=== PATIENT | female | born 1985 | race Caucasian/White ===

== ENCOUNTER 2019-07-18 09:38 | Outpatient (CLI) | payer BC, SELFPAY ==
[2019-07-18 09:56] LABS: Basophils Absolute Auto 0.1 K/mm3 (0.0-0.1); Basophils Percent Auto 0.8 % (0.2-1.2); Eosinophils Absolute Auto 0.4 K/mm3 (0-0.3); Eosinophils Percent Auto 3.6 % (0-4.4); Hematocrit 49.2 % (37.0-47.0); Hemoglobin 15.8 g/dL (12.0-15.0); Immature Granulocyte Absolute 0.03 K/mm3 (0.00-0.031); Immature Granulocyte Percent A 0.3 % (0-0.5); Lymphocytes Absolute Auto 2.32 K/mm3 (0.9-3.2); Lymphocytes Percent Auto 23.2 % (18.3-44.2); Mean Corpuscular HGB Conc 32.1 g/dl (32-36); Mean Corpuscular Hemoglobin 30.9 pg (26-34); Mean Corpuscular Volume 96.3 fl (80-100); Mean Platelet Volume 9.2 fl (7.4-10.4); Monocytes Absolute Auto 0.5 K/mm3 (0.1-0.6); Monocytes Percent Auto 5.3 % (2.6-8.5); Neutrophils Absolute Auto 6.7 K/mm3 (1.3-6.7); Neutrophils Percent Auto 66.8 % (45.5-73.1); Platelet Count Result 381 k/mm3 (150-375); Red Blood Count 5.11 M/mm3 (4.2-5.4); Red Cell Distribution Width 13.4 % (11.5-14.5)
[2019-07-18 09:58] LABS: Blood Urea Nitrogen 9 mg/dL (8-26); Carbon Dioxide 24 mmol/L (22-30); Chloride 104 mmol/L (98-109); Estimated Glomerular Filt Rate > 60; Glucose 93 mg/dL (70-105); Potassium 4.1 mmol/L (3.5-4.9); Sodium 139 mmol/L (138-146)
== END 2019-07-18 09:39 | disposition home or self-care (01) ==
LOC: ANHLAB 09:43
PROVIDERS: PCP Nurse Practitioner Family; Visit Provider Internal Medicine Hematology & Oncology
DX: D72.829 Elevated white blood cell count, unspecified (principal)
CPT/HCPCS: 36415; 80048; 85025

== ENCOUNTER 2020-11-23 10:25 | Outpatient (CLI) | payer BC, SELFPAY ==
[2020-11-23 11:47] LABS: Basophils Absolute Auto 0.1 K/mm3 (0.0-0.1); Basophils Percent Auto 0.9 % (0.2-1.2); Eosinophils Absolute Auto 0.4 K/mm3 (0-0.3); Eosinophils Percent Auto 3.8 % (0-4.4); Hematocrit 49.3 % (37.0-47.0); Immature Granulocyte Absolute 0.03 K/mm3 (0.00-0.031); Immature Granulocyte Percent A 0.3 % (0-0.5); Lymphocytes Absolute Auto 2.36 K/mm3 (0.9-3.2); Mean Corpuscular HGB Conc 32.5 g/dl (32-36); Mean Corpuscular Hemoglobin 30.8 pg (26-34); Mean Platelet Volume 9.2 fl (7.4-10.4); Monocytes Absolute Auto 0.6 K/mm3 (0.1-0.6); Monocytes Percent Auto 5.5 % (2.6-8.5); Neutrophils Absolute Auto 7.7 K/mm3 (1.3-6.7); Neutrophils Percent Auto 68.5 % (45.5-73.1); Platelet Count Result 357 k/mm3 (150-375); Red Blood Count 5.19 M/mm3 (4.2-5.4); Red Cell Distribution Width 14.1 % (11.5-14.5); White Blood Count 11.3 K/mm3 (4.5-10.0)
[2020-11-23 11:57] LABS: Alanine Aminotransferase 36 U/L (4-35); Aspartate Amino Transferase 34 U/L (14-36); Cholesterol 124 mg/dL (0-200); Creatine Kinase 78 U/L (30-135); HDL Direct 32 mg/dL; Triglycerides 122 mg/dL (<150)
[2020-11-23 12:08] LABS: LDL Cholesterol Direct 65 mg/dL
== END 2020-11-23 10:26 | disposition home or self-care (01) ==
LOC: ANHLAB 10:32
PROVIDERS: PCP Nurse Practitioner Family
DX: I48.19 Other persistent atrial fibrillation (principal); E78.2 Mixed hyperlipidemia; R53.83 Other fatigue; I25.10 Atherosclerotic heart disease of native coronary artery without angina pectoris
CPT/HCPCS: 36415; 80061; 82550; 84450; 84460; 85025

== ENCOUNTER 2020-12-01 13:16 | Emergency (ER) | payer BC, SELFPAY ==
--- NOTE | ~2020-12-01 | CT_ITS ---
EXAMINATION: CT abdomen pelvis wo con DATE: 12/01/2020 14:21 INDICATION: Left flank pain TECHNIQUE: Computed tomography (CT) of the abdomen and pelvis was performed without intravenous contr ast. Automated exposure control and iterative reconstruction technique were employed. The dose-length product was 1006.27 mGy-cm. COMPARISON: None FINDINGS: Lung bases are clear. Heart size is normal. No pericardial or pleural effusion. Liver, gallbladder, p ancreas and left adrenal gland are normal. Dystrophic calcifications at the right adrenal gland likel y related to prior infection or hemorrhage. Lobular contour to the spleen suggesting sequela of prior infarct or trauma. Mild right renal atrophy with regions of cortical scarring. Mild left hydroureter onephrosis without evident obstructing stone or mass. 7.8 x 5.6 x 6.8 cm right ovarian mass with mixe d fluid, soft tissue and fat attenuation along with coarse calcification consistent with ovarian derm oid. Decompressed bladder is normal. There is a bulging contour along the left anterior aspect of the lower uterine segment suggesting a uterine fibroid. Left adnexa is unremarkable. No free intraperito james gas or fluid. No pathologically enlarged abdominal or pelvic lymphadenopathy. Bones are unremark able. IMPRESSION: 1. Mild left hydroureteronephrosis without evident obstructing stone or mass. 2. 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 3. Likely uterine fibroid. 4. Mild right renal atrophy with focal regions of cortical atrophy which could represent sequela of p rior infection or less likely infarction. Reviewed, dictated and finalized at location A. IMPRESSION: 1. Mild left hydroureteronephrosis without evident obstructing stone or mass. 2. 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 3. Likely uterine fibroid. 4. Mild right renal atrophy with focal regions of cortical atrophy which could represent sequela of prior infection or less likely infarction.
[2020-12-01 13:20] VITALS: PULSE 74; RESP 20; TEMP 36.8; O2SAT 100
[2020-12-01 13:35] LABS: Basophils Absolute Auto 0.1 K/mm3 (0.0-0.1); Basophils Percent Auto 0.7 % (0.2-1.2); Eosinophils Absolute Auto 0.4 K/mm3 (0-0.3); Eosinophils Percent Auto 2.3 % (0-4.4); Hematocrit 49.1 % (37.0-47.0); Immature Granulocyte Absolute 0.06 K/mm3 (0.00-0.031); Immature Granulocyte Percent A 0.4 % (0-0.5); Lymphocytes Percent Auto 14.4 % (18.3-44.2); Mean Corpuscular HGB Conc 32.6 g/dl (32-36); Mean Corpuscular Hemoglobin 30.7 pg (26-34); Mean Corpuscular Volume 94.2 fl (80-100); Mean Platelet Volume 9.1 fl (7.4-10.4); Monocytes Absolute Auto 0.9 K/mm3 (0.1-0.6); Monocytes Percent Auto 5.9 % (2.6-8.5); Neutrophils Absolute Auto 11.7 K/mm3 (1.3-6.7); Neutrophils Percent Auto 76.3 % (45.5-73.1); Platelet Count Result 387 k/mm3 (150-375); Red Blood Count 5.21 M/mm3 (4.2-5.4); Red Cell Distribution Width 13.9 % (11.5-14.5); White Blood Count 15.3 K/mm3 (4.5-10.0)
[2020-12-01 13:36] VITALS: BP 130/90
--- NOTE | 2020-12-01 13:41 | ED.ABDPAIN ---
HPI - Abdominal Pain General Chief Complaint: Abdominal Pain Stated Complaint: abdominal pain Time Seen by Provider: 12/01/20 13:21 Source: patient Mode of arrival: ambulatory Limitations: no limitations History of Present Illness HPI narrative: Patient is a 35-year-old female complaining left flank pain, 9 out of 10, sharp, nonradiating accompanied by nausea and vomiting, started today. Patient denies any chest pain, shortness of breath, abdominal pain, nausea, vomiting, diarrhea, fever, chills or urinary symptoms. Related Data Home Medications Medication Instructions Recorded Confirmed aspirin [Aspir-81] 81 mg PO DAILY 12/01/20 12/01/20 clopidogrel 75 mg PO DAILY 12/01/20 12/01/20 lisinopril 5 mg PO DAILY 12/01/20 12/01/20 metoprolol succinate 100 mg PO DAILY 12/01/20 12/01/20 rosuvastatin 10 mg PO DAILY 12/01/20 12/01/20 Allergies Allergy/AdvReac Type Severity Reaction Status Date / Time lamotrigine [From Lamictal] Allergy Hives Verified 12/01/20 13:23 Review of Systems Review of Systems: All systems reviewed & are unremarkable except as noted in HPI and below Constitutional: Constitutional: Denies body ache(s), Denies chills, Denies excessive sweating, Denies fatigue, Denies fever(s), Denies headache(s), Denies lethargy, Denies malaise, Denies weakness and Denies weight loss Eyes: Eyes: Denies blurry vision, Denies change in vision and Denies loss of vision ENT: Denies dizziness, Denies ear discharge, Denies headache(s), Denies lip swelling, Denies epistaxis, Denies nasal congestion, Denies neck pain, Denies throat swelling and Denies tongue swelling Cardiovascular: Cardiovascular: Denies chest pain, Denies chest pain at rest, Denies chest pain with activity, Denies diaphoresis, Denies rapid heart rate, Denies edema, Denies irregular heart rhythm, Denies lightheadedness, Denies palpitations, Denies dyspnea and Denies dyspnea on exertion Respiratory: Respiratory: Denies chest congestion, Denies cough, Denies hemoptysis, Denies dyspnea and Denies dyspnea on exertion Gastrointestinal: Gastrointestinal: Denies abdominal pain, Denies melena, Denies hematochezia, Denies diarrhea and Denies hematemesis Musculoskeletal: Musculoskeletal: Denies abnormal gait, Denies deformity, Denies joint swelling, Denies limited range of motion, Denies neck pain and Denies numbness Neurologic: Denies Abnormal speech present, Denies abnormal gait, Denies confusion, Denies dizziness, Denies headache(s), Denies focal weakness, Denies loss of vision, Denies numbness, Denies Other visual disturbances, Denies Sensory deficit (Neuro) and Denies weakness Psychiatric: Psychiatric: Denies confusion, Denies depression, Denies auditory hallucinations, Denies homicidal ideation and Denies suicidal ideation Endocrine: Endocrine: Denies cold intolerance, Denies excessive sweating, Denies fatigue, Denies heat intolerance and Denies palpitations Hematologic/Lymphatic: Hematologic/Lymphatic: Denies easy bleeding and Denies easy bruising Allergic/Immunologic: Allergic/Immunologic: Denies lip swelling, Denies throat swelling and Denies tongue swelling PMFSH Social History Social History Gender identity (if verbalized by the patient): Female Comments Past medical history: Hypertension, hyperlipidemia, coronary artery disease Family history: Positive for hypertension and coronary disease Social history: Non-smoker no EtOH or drug use Exam Const: General: cooperative, healthy appearing, comfortable, no acute distress, well developed, alert and awake; No confusion Orientation/consciousness: oriented to person, oriented to place, oriented to time, patient oriented x3 and No confusion Limitations: no limitations HENMT: Head: normal to inspection, normocephalic and atraumatic Ears: hearing grossly normal bilaterally, TM normal on the right and TM normal on the left General nose exam: Normal external nose present, Normal nares present and No nasal dischar
[2020-12-01 13:44] LABS: Anion Gap 10 mmol/L (8-16); Blood Urea Nitrogen 13 mg/dL (7-17); Calcium 9.4 mg/dL (8.4-10.2); Carbon Dioxide 22 mmol/L (22-30); Chloride 107 mmol/L (98-107); Estimated CRCL calculation 84 ml/min; Estimated Glomerular Filt Rate 52; Glucose 109 mg/dL (65-110); Potassium 4.7 mmol/L (3.4-5.0); Sodium 139 mmol/L (137-145)
[2020-12-01] MEDS: KETOROLAC 30 MG/ML VIAL (*BKC) IV PUSH (14:03)
[2020-12-01] MEDS: PROMETHAZINE HCL 25 MG/ML AMPUL 12.5 MG IV PUSH (14:04)
[2020-12-01 14:05] LABS: Add Urine Microscopic? YES; Appearance Urine Cloudy (Clear); Bacteria Urine Trace /hpf; Bilirubin Urine Negative (Negative); Blood Urine 2+ (Negative); Color Urine Yellow (Yellow); Glucose Urine UA Negative (Negative); Ketones Urine Negative (Negative); Leukocyte Esterase Ur Trace LEU/UL (Negative); Mucus Urine Moderate /lpf; Nitrate Urine Negative (Negative); Protein Urine 1+ mg/dL (Negative); Specific Grav Ur 1.027 (1.001-1.035); Squamous Epithelial Cell Urine Many /hpf (Few); Urobilinogen Urine Negative mg/dL (<2.0)
[2020-12-01] MEDS: SODIUM CHLORIDE 0.9% IV 1,000 ML 999 ML IV CONT (14:08)
[2020-12-01 14:50] VITALS: BP 125/79; PULSE 65; RESP 14; O2SAT 97
[2020-12-01 16:29] VITALS: BP 115/77; PULSE 67; RESP 14; O2SAT 97
--- NOTE | 2020-12-25 07:43 | PC.NURSE ---
LATE ENTRY This note is being entered to document information to the patient's record. The following information was omitted on [12/01/20], by [Tito Dahl Rn]. NS stop time 1500.
--- NOTE | 2021-01-03 07:44 | PC.NURSE ---
normal saline given per gravity and ended one hour after starting.
== END 2020-12-01 16:44 | disposition home or self-care (01) ==
PROVIDERS: Emergency Provider Emergency Medicine; PCP Family Medicine
DX: N23 Unspecified renal colic (principal); N13.30 Unspecified hydronephrosis; R31.29 Other microscopic hematuria; I10 Essential (primary) hypertension; E78.5 Hyperlipidemia, unspecified; I25.10 Atherosclerotic heart disease of native coronary artery without angina pectoris; D27.0 Benign neoplasm of right ovary; N26.1 Atrophy of kidney (terminal); R93.89 Abnormal findings on diagnostic imaging of other specified body structures
CPT/HCPCS: 36415; 74176; 80048; 81001; 81025; 85025; 87086; 87088; 96361; 96374; 96375; 99284; J1885; J2550; J7030

== ENCOUNTER 2021-03-10 10:58 | Emergency (ER) | payer BC, SELFPAY ==
[2021-03-10 11:06] VITALS: BP 136/82; PULSE 91; RESP 18; TEMP 36.6; O2SAT 100
--- NOTE | 2021-03-10 12:41 | ED.SKABFB ---
HPI - Skin/Abscess/Foreign Bdy General Chief complaint: Skin/Abscess/Foreign Body Stated complaint: abscess armpit Time Seen by Provider: 03/10/21 11:48 Source: patient Mode of arrival: ambulatory Limitations: no limitations History of Present Illness HPI narrative: This is a 36 year old female that presents to the ER for abscess to the left axilla present over the last couple of days. Reports history of frequent abscesses. Denies fever or drainage. Related Data Home Medications Medication Instructions Recorded Confirmed apixaban 5 mg tablet 5 mg PO BID 04/10/19 aspirin 81 mg tablet,delayed 81 mg PO DAILY 04/10/19 release clopidogrel 75 mg tablet 75 mg PO DAILY 04/10/19 metoprolol succinate 100 mg 100 mg PO DAILY 04/10/19 tablet,extended release 24 hr aspirin [Aspir-81] 81 mg PO DAILY 12/01/20 12/01/20 clopidogrel 75 mg PO DAILY 12/01/20 12/01/20 lisinopril 5 mg PO DAILY 12/01/20 12/01/20 metoprolol succinate 100 mg PO DAILY 12/01/20 12/01/20 rosuvastatin 10 mg PO DAILY 12/01/20 12/01/20 Allergies Allergy/AdvReac Type Severity Reaction Status Date / Time lamotrigine [From Lamictal] Allergy Hives Verified 02/06/21 12:43 Review of Systems Review of Systems: CONSTITUTIONAL: Denies fever SKIN: Reports redness and swelling All systems reviewed & are unremarkable except as noted in HPI and below PMFSH Past Medical History Medical History (Updated 03/10/21 @ 13:19 by Amaya Evans PA-C) Breast abscess Myocardial infarction TIA (transient ischemic attack) x4 Surgical History Surgical History (Updated 02/06/21 @ 12:43 by Asia Hare) No history of previous surgery Family History Family History (System 02/06/21 @ 12:43 by Asia Hare) Mother Diabetes mellitus Hypertension Family history of malignant neoplasm of uterus Family history of malignant neoplasm of breast in first degree relative Father Cerebrovascular accident Social History Social History (System 02/06/21 @ 12:43 by Asia Hare) Smoking packs per day: 0.5 Smoking cigarettes per day: 10.0 Smoking status: Current every day smoker Tobacco type: cigarettes Second hand tobacco smoke exposure: Yes Alcohol intake: never Substance use: never Substance use type: does not use Gender identity (if verbalized by the patient): Female Exam Narrative: GENERAL: Well-appearing, well-nourished, and in no acute distress. HEAD: Normocephalic, atraumatic. EYES: EOMI. EXTREMITIES: Normal range of motion. Left axilla with 3cm area of erythema and edema with central fluctuance, tender to palpation SKIN: Warm, dry, no rash. NEURO: No focal deficits. Alert and oriented x3. PSYCH: Normal mood and affect Course Vital Signs Vital signs: Vital Signs Temperature 97.8 F 03/10/21 11:06 Pulse Rate 91 03/10/21 11:06 Respiratory Rate 18 03/10/21 11:06 Blood Pressure 136/82 03/10/21 11:06 Pulse Oximetry 100 03/10/21 11:06 Temperature 97.8 F 03/10/21 11:06 Pulse Rate 91 03/10/21 11:06 Respiratory Rate 18 03/10/21 11:06 Blood Pressure 136/82 03/10/21 11:06 Pulse Oximetry 100 03/10/21 11:06 Procedures Abscess I/D upper extremity: Date of Incision: 03/10/21 Time of Incision: 13:18 Side (if applicable): left Local Anesthetic: lidocaine 1% and with epi Amount of anesthesia used (mL): 4 Technique: incised with #11 blade Packing used?: none I&D Results: Pus and Blood MDM - Skin/Abscess/Foreign Bdy MDM Narrative Medical decision making narrative: Patient presents to the emergency department for a small abscess present to the left axilla over the last couple of days. She is afebrile and nontoxic-appearing. Abscess was successfully drained. Patient will be started on oral antibiotics and was educated on wound care. She is to follow-up with primary care doctor. She was also instructed to follow-up with her registered representative. She was
--- NOTE | 2021-03-10 13:39 | PC.NURSE ---
Per Alise in lab, ok to send a jic label down on swab, due to pt being discharged already.
== END 2021-03-10 13:42 | disposition home or self-care (01) ==
PROVIDERS: Emergency Provider Emergency Medicine; PCP Family Medicine
DX: L02.412 Cutaneous abscess of left axilla (principal); I25.2 Old myocardial infarction; Z86.73 Personal history of transient ischemic attack (TIA), and cerebral infarction without residual deficits; Z79.01 Long term (current) use of anticoagulants; Z79.82 Long term (current) use of aspirin; F17.210 Nicotine dependence, cigarettes, uncomplicated
CPT/HCPCS: 10060; 87070; 87205; 99283

== ENCOUNTER 2021-06-02 14:29 | Emergency (ER) | payer BC, SELFPAY ==
--- NOTE | ~2021-06-02 | XR_ITS ---
EXAMINATION: XR ankle LT min 3V EXAM DATE: 06/02/2021 15:19 INDICATION: Lateral malleolar pain, fall week ago. TECHNIQUE: Left ankle frontal, lateral and oblique projections obtained and reviewed. There is no pr ior study for comparison. FINDINGS: There is nondisplaced lateral malleolar tip fracture with overlying soft tissue swelling. T here is also tiny avulsion fracture suspected at the medial malleolus although this potentially could be a chronic finding. Mortise relationship does appear maintained. There is an ankle joint effusion. IMPRESSION: 1. Acute left malleolar tip avulsion fracture without displacement. 2. Tiny medial malleolar avulsion fracture, age indeterminate. 3. Joint effusion. Soft tissue swelling. Reviewed, dictated and finalized at location B. OPERATOR
[2021-06-02 15:00] VITALS: BP 130/88; PULSE 102; RESP 20; TEMP 36.6
--- NOTE | 2021-06-02 16:20 | ED.LOWEXIN ---
HPI - Extremity Injury (Lower) General Chief Complaint: Extremity Injury, Lower Stated Complaint: left ankle pain Time Seen by Provider: 06/02/21 16:03 History of Present Illness HPI Narrative: 36-year-old female presents the emergency room with complaints of left ankle pain. Patient states 7 days ago fell down multiple stairs and twisted her left ankle. Patient states that she noticed swelling tenderness and bruising to the ankle. History of frequent ankle sprains. Patient has been ambulating with pain since onset of injury. Has been taking Tylenol and ibuprofen for pain Related Data Home Medications Medication Instructions Recorded Confirmed apixaban 5 mg tablet 5 mg PO BID 04/10/19 aspirin 81 mg tablet,delayed 81 mg PO DAILY 04/10/19 release clopidogrel 75 mg tablet 75 mg PO DAILY 04/10/19 metoprolol succinate 100 mg 100 mg PO DAILY 04/10/19 tablet,extended release 24 hr aspirin [Aspir-81] 81 mg PO DAILY 12/01/20 12/01/20 clopidogrel 75 mg PO DAILY 12/01/20 12/01/20 lisinopril 5 mg PO DAILY 12/01/20 12/01/20 metoprolol succinate 100 mg PO DAILY 12/01/20 12/01/20 rosuvastatin 10 mg PO DAILY 12/01/20 12/01/20 Allergies Allergy/AdvReac Type Severity Reaction Status Date / Time lamotrigine [From Lamictal] Allergy Hives Verified 02/06/21 12:43 Review of Systems Review of Systems: CONSTITUTIONAL: Denies fever, chills, or sweats. EYES: Denies visual changes, redness, or discharge. ENT: Denies rhinorrhea, congestion, sore throat, or otalgia. CARDIOVASCULAR: Denies chest pain, palpitations, or edema. RESPIRATORY: Denies cough or dyspnea. GASTROINTESTINAL: Denies abdominal pain, nausea, vomiting, or diarrhea. GENITOURINARY: Denies dysuria or hematuria. SKIN: Denies rash or itching. MUSCULOSKELETAL: Right ankle pain NEUROLOGIC: Denies headache, numbness, dizziness, or weakness. PSYCHIATRIC: Denies anxiety or depression. [facility] Past Medical History Medical History Breast abscess Myocardial infarction TIA (transient ischemic attack) x4 Surgical History Surgical History No history of previous surgery Family History Family History Mother Diabetes mellitus Hypertension Family history of malignant neoplasm of uterus Family history of malignant neoplasm of breast in first degree relative Father Cerebrovascular accident Social History Social History Smoking packs per day: 0.5 Smoking cigarettes per day: 10.0 Smoking status: Current every day smoker Tobacco type: cigarettes Second hand tobacco smoke exposure: Yes Alcohol intake: never Substance use: never Substance use type: does not use Gender identity (if verbalized by the patient): Female Exam Narrative: GENERAL: Well-appearing, well-nourished, and in no acute distress. HEAD: Normocephalic, atraumatic. EYES: PERRLA and EOMI. ENT: Nares clear, no rhinorrhea or epistaxis. Mucous membranes moist. NECK: Supple. No adenopathy or masses. No carotid bruits or JVD CHEST: Clear to auscultation. No respiratory distress. No wheezes rales or rhonchi HEART: Regular rate and rhythm. No murmur heard. Normal peripheral pulses. ABDOMEN: Soft, nontender, nondistended, normal active bowel sounds. EXTREMITIES: Normal range of motion. No edema. Right ankle: Tenderness and swelling to medial lateral malleolus, no joint laxity, no obvious bony abnormality SKIN: Warm, dry, no rash. NEURO: No focal deficits. Alert and oriented x3. PSYCH: Normal mood and affect. Course Vital Signs Vital signs: Vital Signs Temperature 36.6 C 06/02/21 15:00 Pulse Rate 102 H 06/02/21 15:00 Respiratory Rate 20 06/02/21 15:00 Blood Pressure 130/88 06/02/21 15:00 Temperature 36.6 C 06/02/21 15:00 Pulse Rate 102 H
[2021-06-02 17:29] VITALS: BP 132/82; PULSE 99; RESP 16; TEMP 36.6; O2SAT 96
== END 2021-06-02 17:31 | disposition home or self-care (01) ==
LOC: ANHED 17:00
PROVIDERS: Emergency Provider Nurse Practitioner Family; PCP Family Medicine
DX: S82.65XA Nondisplaced fracture of lateral malleolus of left fibula, initial encounter for closed fracture (principal); I25.2 Old myocardial infarction; Z86.73 Personal history of transient ischemic attack (TIA), and cerebral infarction without residual deficits; Z79.01 Long term (current) use of anticoagulants; Z79.82 Long term (current) use of aspirin; F17.210 Nicotine dependence, cigarettes, uncomplicated; W10.9XXA Fall (on) (from) unspecified stairs and steps, initial encounter
CPT/HCPCS: 29515; 73610; 99284

== ENCOUNTER 2022-07-24 16:26 | Outpatient (CLI) | payer BC, SELFPAY ==
[2022-07-24 18:01] LABS: Hemoglobin A1C 5.6 % (<5.7)
[2022-07-28 10:46] LABS: Insulin Level Total 11.3 uIU/mL (<=19.6)
[2022-07-29 04:56] LABS: FSH 8.6 mIU/mL (***); LH 14.8 mIU/mL (***); Progesterone 0.4 ng/mL (***)
[2022-07-29 11:50] LABS: Testosterone Total 132 ng/dL (2-45)
== END 2022-07-24 16:27 | disposition home or self-care (01) ==
LOC: ANHLAB 16:27
PROVIDERS: PCP Family Medicine; Visit Provider Obstetrics & Gynecology
DX: N92.6 Irregular menstruation, unspecified (principal)
CPT/HCPCS: 36415; 83001; 83002; 83036; 83525; 84144; 84403

== ENCOUNTER 2022-08-06 16:12 | Outpatient (CLI) | payer BC, SELFPAY | END 2022-08-06 16:13 | disposition home or self-care (01) | LOC: ANHLAB 16:13 | PROVIDERS: PCP Family Medicine; Visit Provider Obstetrics & Gynecology | DX: R79.89 Other specified abnormal findings of blood chemistry (principal) | CPT/HCPCS: 36415; 83498 ==

== ENCOUNTER 2022-09-04 12:19 | Outpatient (CLI) | payer BC, SELFPAY ==
--- NOTE | ~2022-09-04 | US_ITS ---
EXAMINATION: US pelvic complete w TV DATE: 09/04/2022 13:17 INDICATION: Irregular menstruation, unspecified. TECHNIQUE: Multiple transabdominal and transvaginal sonographic images of the pelvis were obtained. COMPARISON: CT abdomen and pelvis 12/01/2020 FINDINGS: TRANSABDOMINAL ULTRASOUND: The uterus measures 12.2 x 4.6 x 5.6 cm. There is no free fluid in the pelvis. TRANSVAGINAL ULTRASOUND: The endometrial complex is obscured. There is a 3.8 cm intramural fibroid in the lower uterine segmen t anteriorly. The ovaries are not visualized. IMPRESSION: 1. 3.8 cm uterine fibroid. 2. Endometrial complex not well visualized. 3. Ovaries not visualized. Reviewed, dictated and finalized at location A.
== END 2022-09-04 12:20 | disposition home or self-care (01) ==
LOC: ANHIMG 12:20
PROVIDERS: PCP Family Medicine; Visit Provider Obstetrics & Gynecology
DX: D25.9 Leiomyoma of uterus, unspecified (principal); N92.6 Irregular menstruation, unspecified; N92.0 Excessive and frequent menstruation with regular cycle
CPT/HCPCS: 76830; 76856

== ENCOUNTER 2023-01-15 07:40 | Outpatient (CLI) | payer BC, SELFPAY ==
[2023-01-15 08:59] LABS: Basophils Absolute Auto 0.1 K/mm3 (0.0-0.1); Basophils Percent Auto 0.8 % (0.2-1.2); Eosinophils Absolute Auto 0.5 K/mm3 (0-0.3); Eosinophils Percent Auto 4.3 % (0-4.4); Hematocrit 48.2 % (37.0-47.0); Hemoglobin 15.6 g/dL (12.0-15.0); Immature Granulocyte Absolute 0.04 K/mm3 (0.00-0.031); Immature Granulocyte Percent A 0.3 % (0-0.5); Lymphocytes Absolute Auto 2.76 K/mm3 (0.9-3.2); Lymphocytes Percent Auto 23.2 % (18.3-44.2); Mean Corpuscular HGB Conc 32.4 g/dl (32-36); Mean Corpuscular Hemoglobin 31.1 pg (26-34); Mean Platelet Volume 9.3 fl (7.4-10.4); Monocytes Absolute Auto 0.7 K/mm3 (0.1-0.6); Monocytes Percent Auto 5.7 % (2.6-8.5); Neutrophils Absolute Auto 7.8 K/mm3 (1.3-6.7); Neutrophils Percent Auto 65.7 % (45.5-73.1); Platelet Count Result 376 k/mm3 (150-375); Red Blood Count 5.02 M/mm3 (4.2-5.4); Red Cell Distribution Width 13.8 % (11.5-14.5); White Blood Count 11.9 K/mm3 (4.5-10.0)
[2023-01-15 09:11] LABS: Alanine Aminotransferase 30 U/L (6-35); Albumin Level 4.3 g/dL (3.5-5.1); Alkaline Phosphatase 103 U/L (38-126); Anion Gap 6 mmol/L (8-16); Aspartate Amino Transferase 28 U/L (14-36); Bilirubin,Total 0.5 mg/dL (0.2-1.3); Blood Urea Nitrogen 13 mg/dL (7-17); Calcium 9.1 mg/dL (8.4-10.2); Carbon Dioxide 27 mmol/L (22-30); Chloride 104 mmol/L (98-107); Cholesterol 148 mg/dL (0-200); Estimated Glomerular Filt Rate > 60; Glucose 91 mg/dL (65-110); HDL Direct 32 mg/dL; Potassium 4.2 mmol/L (3.4-5.0); Sodium 137 mmol/L (137-145); Triglycerides 145 mg/dL (<150)
[2023-01-15 09:23] LABS: LDL Cholesterol Direct 88 mg/dL
== END 2023-01-15 07:41 | disposition home or self-care (01) ==
PROVIDERS: PCP Family Medicine; Visit Provider Physician Assistant Medical
DX: Z72.0 Tobacco use (principal); Z13.29 Encounter for screening for other suspected endocrine disorder; E78.5 Hyperlipidemia, unspecified; D64.9 Anemia, unspecified; R63.5 Abnormal weight gain
CPT/HCPCS: 36415; 80053; 80061; 84443; 85025

== ENCOUNTER 2023-02-17 15:53 | Outpatient (CLI) | payer BC, SELFPAY ==
[2023-02-17 16:19] LABS: Basophils Absolute Auto 0.1 K/mm3 (0.0-0.1); Basophils Percent Auto 0.9 % (0.2-1.2); Eosinophils Absolute Auto 0.6 K/mm3 (0-0.3); Eosinophils Percent Auto 4.5 % (0-4.4); Hemoglobin 16.1 g/dL (12.0-15.0); Immature Granulocyte Absolute 0.06 K/mm3 (0.00-0.031); Immature Granulocyte Percent A 0.5 % (0-0.5); Lymphocytes Absolute Auto 2.71 K/mm3 (0.9-3.2); Lymphocytes Percent Auto 22.2 % (18.3-44.2); Mean Corpuscular HGB Conc 33.5 g/dl (32-36); Mean Corpuscular Hemoglobin 31.4 pg (26-34); Mean Corpuscular Volume 93.8 fl (80-100); Mean Platelet Volume 8.9 fl (7.4-10.4); Monocytes Absolute Auto 0.8 K/mm3 (0.1-0.6); Monocytes Percent Auto 6.2 % (2.6-8.5); Neutrophils Percent Auto 65.7 % (45.5-73.1); Platelet Count Result 408 k/mm3 (150-375); Red Blood Count 5.12 M/mm3 (4.2-5.4); Red Cell Distribution Width 13.7 % (11.5-14.5); White Blood Count 12.2 K/mm3 (4.5-10.0)
[2023-02-17 16:52] LABS: Alanine Aminotransferase 35 U/L (6-35); Albumin Level 4.5 g/dL (3.5-5.1); Alkaline Phosphatase 114 U/L (38-126); Anion Gap 10 mmol/L (8-16); Aspartate Amino Transferase 42 U/L (14-36); Bilirubin,Total 0.4 mg/dL (0.2-1.3); Blood Urea Nitrogen 12 mg/dL (7-17); Calcium 9.3 mg/dL (8.4-10.2); Carbon Dioxide 24 mmol/L (22-30); Chloride 106 mmol/L (98-107); Estimated Glomerular Filt Rate > 60; Glucose 92 mg/dL (65-110); Potassium 4.5 mmol/L (3.4-5.0); Sodium 140 mmol/L (137-145)
[2023-02-17 17:11] LABS: Iron 121 ug/dL (37-170)
[2023-02-17 17:11] LABS: Erythrocyte Sedimentation Rate 5 mm/hr (0-20)
[2023-02-17 17:20] LABS: Percent Iron Saturation 33 % (20-50)
[2023-02-20 14:05] LABS: Erythropoietin (EPO) 12.9 mIU/mL (2.6-18.5)
== END 2023-02-17 15:54 | disposition home or self-care (01) ==
LOC: ANHLAB 15:55
PROVIDERS: Nurse Practitioner Family; PCP Family Medicine; Visit Provider Internal Medicine Hematology & Oncology
DX: D72.829 Elevated white blood cell count, unspecified (principal); E61.1 Iron deficiency
CPT/HCPCS: 36415; 80053; 82668; 82728; 83540; 83550; 85025; 85652; 86140; 88184

== ENCOUNTER 2023-02-17 16:34 | Outpatient (CLI) | payer BC, SELFPAY ==
--- NOTE | ~2023-02-17 | US_ITS ---
Left neck ultrasound CLINICAL HISTORY: Mass TECHNIQUE: Targeted sonographic imaging performed at the area of palpable concern in the left submand ibular region. FINDINGS: At the area of clinical concern, there is a 2.9 x 0.8 x 3.0 cm circumscribed wider than kathy l ovoid mass, predominantly mildly hyperechoic to surrounding tissues. No posterior shadowing. There is minimal if any internal vascularity. IMPRESSION: 3.0 x 0.8 x 2.9 cm circumscribed mass at the left submandibular region, at the area of clinical alondra rn. This is possibly a lipoma, though somewhat indeterminate. Consider MR to better assess the tissue characteristics of the lesion. Reviewed, dictated and finalized at location . PE MARKER IMPRESSION: 3.0 x 0.8 x 2.9 cm circumscribed mass at the left submandibular region, at the area of clinical concern. This is possibly a lipoma, though somewhat indetermin ate. Consider MR to better assess the tissue characteristics of the lesion.
== END 2023-02-17 16:35 | disposition home or self-care (01) ==
LOC: ANHIMG 16:37
PROVIDERS: PCP Family Medicine; Visit Provider Nurse Practitioner Family
DX: D72.829 Elevated white blood cell count, unspecified (principal); R93.89 Abnormal findings on diagnostic imaging of other specified body structures
CPT/HCPCS: 36415; 76536; 80053; 82668; 82728; 83540; 83550; 85025; 85652; 86140; 88184

== ENCOUNTER 2023-04-19 12:20 | Outpatient (CLI) | payer BC, SELFPAY ==
--- NOTE | ~2023-04-19 | MR_ITS ---
EXAMINATION: MR orbits face neck wo/w con DATE: 04/19/2023 14:05 INDICATION: Leukocytosis and lump in the neck including submandibular mass on prior neck ultrasound. TECHNIQUE: Magnetic resonance imaging (MRI) of the face and neck was performed without and with 20 mL Multihance intravenous contrast. Sequences included axial, sagittal and coronal T1-weighted FSE, sa gittal and coronal T2-weighted FS FSE, axial fluid sensitive FSE STIR, axial T1-weighted FS FSE and p ostcontrast axial, sagittal and coronal T1-weighted FS FSE. COMPARISON: Ultrasound dated 02/17/2023 FINDINGS: Moderate-sized region of chronic encephalomalacia in the right temporoparietal region consistent with old infarct. A separate small region of encephalomalacia consistent with additional old infarct at t he right occipital lobe. Orbits are normal. Mild mucosal thickening the bilateral ethmoid and maxilla ry sinuses. There is a subtle 2.7 x 2.2 x 1.2 cm ovoid nodule comprised of T1 and saturating fat supe rficial to the left submandibular gland which is distinguishable from the surrounding subcutaneous fa t only by subtle increased T2 signal intensity. Small region of more intense ill-defined increased T2 signal and enhancement at the cephalad aspect of the mass. Bilateral parotid and submandibular gland s are normal. A couple mildly prominent but still normal-sized level 2 jugular chain lymph nodes trice uring 10 mm in maximal short axis diameter on the left and 9 mm on the right. No other pathologically enlarged cervical or supraclavicular lymphadenopathy. Mild cervical spondylosis with mild reversal o f the normal lordosis. IMPRESSION: 1. Lesion of concern corresponds to a 2.7 x 2.2 x 1.2 cm T1 hyperintense and saturating macroscopic f at-containing subcutaneous mass overlying the left submandibular gland. There is a small region of in creased T2 signal and mild enhancement at the cephalad aspect of the mass. Differential would include atypical lipoma, one of several benign lipoma variance and well-differentiated liposarcoma. 2. 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 Reviewed, dictated and finalized at location A. CUTTER IMPRESSION: 1. Lesion of concern corresponds to a 2.7 x 2.2 x 1.2 cm T1 hyperintense and sa turating macroscopic fat-containing subcutaneous mass overlying the left subman dibular gland. There is a small region of increased T2 signal and mild enhancem ent at the cephalad aspect of the mass. Differential would include atypical lip lynn, one of several benign lipoma variance and well-differentiated liposarcoma. 2. Chronic infarcts in the right occipital lobe and larger in the right parieto -occipital region.
== END 2023-04-19 12:21 | disposition home or self-care (01) ==
LOC: ANHIMG 12:23
PROVIDERS: PCP Family Medicine; Visit Provider Internal Medicine Hematology & Oncology
DX: K11.8 Other diseases of salivary glands (principal); I63.9 Cerebral infarction, unspecified; D72.829 Elevated white blood cell count, unspecified
CPT/HCPCS: 70543; A9577

== ENCOUNTER 2023-05-04 09:15 | Outpatient (CLI) | payer BC, SELFPAY ==
--- NOTE | ~2023-05-04 | US_ITS ---
EXAMINATION: US biopsy st neck thorax DATE: 05/04/2023 10:11 INDICATION: Left neck mass. TECHNIQUE: The procedure including the risks, benefits, and alternatives was discussed with the patie nt. Risks discussed included bleeding and infection. The patient understood the risks and agreed to p roceed. The skin overlying the left neck was prepped and draped in usual sterile fashion. Anesthetic was administered with 1% lidocaine subcutaneously. An 18 gauge core biopsy needle was then used to obtain 3 core biopsy specimens under continuous sonographic guidance. The entry site was cleaned and dressed. There were no immediate complications. FINDINGS: Ultrasound images demonstrate the needle in a 2.6 x 0.7 x 2.8 cm subcutaneous mass in left submandibular region. The mass demonstrates similar echogenicity and echotexture to normal subcutaneo us fat. IMPRESSION: 1. Ultrasound-guided core needle biopsy of a 2.8 cm heterogeneous mass in left submandibular region. Reviewed, dictated and finalized at location A. NUE INVESTIGATOR
== END 2023-05-04 09:16 | disposition home or self-care (01) ==
LOC: ANHIMG 09:19
PROVIDERS: PCP Family Medicine; Visit Provider Internal Medicine Hematology & Oncology
DX: D17.0 Benign lipomatous neoplasm of skin and subcutaneous tissue of head, face and neck (principal); R22.1 Localized swelling, mass and lump, neck
CPT/HCPCS: 20206; 76942; 88305

== ENCOUNTER 2023-05-10 12:56 | Outpatient (CLI) | payer BC, SELFPAY ==
[2023-05-10 13:09] LABS: Basophils Absolute Auto 0.1 K/mm3 (0.0-0.1); Eosinophils Absolute Auto 0.5 K/mm3 (0-0.3); Eosinophils Percent Auto 4.8 % (0-4.4); Hematocrit 47.7 % (37.0-47.0); Hemoglobin 15.8 g/dL (12.0-15.0); Immature Granulocyte Absolute 0.04 K/mm3 (0.00-0.031); Immature Granulocyte Percent A 0.4 % (0-0.5); Lymphocytes Percent Auto 24.4 % (18.3-44.2); Mean Corpuscular HGB Conc 33.1 g/dl (32-36); Mean Corpuscular Hemoglobin 31.7 pg (26-34); Mean Corpuscular Volume 95.6 fl (80-100); Mean Platelet Volume 8.7 fl (7.4-10.4); Monocytes Absolute Auto 0.6 K/mm3 (0.1-0.6); Monocytes Percent Auto 6.2 % (2.6-8.5); Neutrophils Absolute Auto 6.5 K/mm3 (1.3-6.7); Neutrophils Percent Auto 63.2 % (45.5-73.1); Platelet Count Result 381 k/mm3 (150-375); Red Blood Count 4.99 M/mm3 (4.2-5.4); Red Cell Distribution Width 13.2 % (11.5-14.5); White Blood Count 10.2 K/mm3 (4.5-10.0)
== END 2023-05-10 12:57 | disposition home or self-care (01) ==
LOC: ANHLAB 12:58
PROVIDERS: Nurse Practitioner Family; PCP Family Medicine; Visit Provider Internal Medicine Hematology & Oncology
DX: D72.829 Elevated white blood cell count, unspecified (principal)
CPT/HCPCS: 36415; 85025

== ENCOUNTER 2024-03-27 07:33 | Outpatient (CLI) | payer BC, SELFPAY ==
[2024-03-27 08:29] LABS: Basophils Absolute Auto 0.1 K/mm3 (0.0-0.1); Basophils Percent Auto 0.7 % (0.2-1.2); Eosinophils Absolute Auto 0.5 K/mm3 (0-0.3); Eosinophils Percent Auto 3.4 % (0-4.4); Hematocrit 45.7 % (37.0-47.0); Hemoglobin 14.2 g/dL (12.0-15.0); Immature Granulocyte Absolute 0.05 K/mm3 (0.00-0.031); Immature Granulocyte Percent A 0.4 % (0-0.5); Lymphocytes Absolute Auto 2.81 K/mm3 (0.9-3.2); Mean Corpuscular HGB Conc 31.1 g/dl (32-36); Mean Corpuscular Volume 96.6 fl (80-100); Mean Platelet Volume 8.9 fl (7.4-10.4); Monocytes Absolute Auto 0.6 K/mm3 (0.1-0.6); Monocytes Percent Auto 4.6 % (2.6-8.5); Neutrophils Absolute Auto 9.4 K/mm3 (1.3-6.7); Neutrophils Percent Auto 69.9 % (45.5-73.1); Platelet Count Result 425 k/mm3 (150-375); Red Blood Count 4.73 M/mm3 (4.2-5.4); White Blood Count 13.4 K/mm3 (4.5-10.0)
[2024-03-27 08:44] LABS: Cholesterol 144 mg/dL (0-200); HDL Direct 33 mg/dL; Triglycerides 145 mg/dL (<150)
[2024-03-27 08:45] LABS: Alanine Aminotransferase 24 U/L (6-35); Albumin Level 4.2 g/dL (3.5-5.1); Alkaline Phosphatase 127 U/L (38-126); Anion Gap 5 mmol/L (4-12); Aspartate Amino Transferase 23 U/L (14-36); Bilirubin,Total 0.3 mg/dL (0.2-1.3); Blood Urea Nitrogen 12 mg/dL (7-17); Calcium 8.7 mg/dL (8.4-10.2); Carbon Dioxide 25 mmol/L (22-30); Chloride 109 mmol/L (98-107); Cholesterol 144 mg/dL (0-200); Estimated Glomerular Filt Rate > 60; Glucose 101 mg/dL (65-110); HDL Direct 32 mg/dL; Potassium 4.2 mmol/L (3.4-5.0); Sodium 139 mmol/L (137-145); Triglycerides 144 mg/dL (<150)
[2024-03-27 08:55] LABS: LDL Cholesterol Direct 73 mg/dL
[2024-03-27 08:56] LABS: LDL Cholesterol Direct 72 mg/dL
[2024-03-27 10:02] LABS: Hemoglobin A1C 5.5 % (<5.7)
--- OUTSIDE RECORDS SUMMARY | 2024-04-03 10:58 | XMS_ITS | Encounter Summary ---
Author Organization [facility] [employer] [facility] Address [address] [place] [address] Care Team Providers Care Retail Loss Prevention Investigator Name Role Phone Keven Mckenzie MD Primary Care Provider [phone] Encounter Details Date Type Department Care Team (Latest Contact Info) Description 04/22/2023 1:00 PM DIETETICS PROFESSOR Telephone Check Up [facility] Oncology and Hematology - Juan Manuel [address] [facility] [address] [place] [address] Madyson Perez FNP [address] [facility] [address] [place] [address] Leukocytosis, unspecified type (Primary Dx); Neck mass; Erythrocytosis; Thrombocytosis, unspecified; Lupus anticoagulant with hypercoagulable state Social History Tobacco Use Types Packs/Day Years Used Date Smoking Tobacco: Every Day Cigarettes Smokeless Tobacco: Never Alcohol Use Standard Drinks/Week Comments Yes 0 (1 standard drink = 0.6 oz pur e alcohol) socially Sex and Gender Information Value Date Recorded Sex Assigned at Not on file Gender Identity Not on file Sexual Orientation Not on file documented as of this encounter Progress Notes * Madyson Perez FNP - 04/22/2023 1:09 PM CST Hematology / Oncology Progress Note Patient Identification: Name: Alise Penny Age: 38 y.o. Sex: female : 1985 Diagnosis: Leukocytosis with Lymphadenopathy Hypercoagulable state with recurrent thromboembolic events Erythrocytosis Thrombocytosis Current Treatment: Aspirin, eliquis, and plavix Treatment History: Subjective: This is a telephone visit. Her first appt with us was back in February 2023. She has cancelled and rescheduled her appts with me since then. She was seen prior to that by Dr. Patel years prior but was lost to follow up as well. Upon my exam in Feb, I found an enlarged LN or mass on patients left submandibular area and she was sent for an ultrasound. The ultrasound suggested a MRI. MRI was completed and is concerned for a lipoma vs liposarcoma. She still feels the area on her neck, but does notfeel like it is getting bigger. She denies any URI symptoms. She denies a sore throat. She is stilltaking her blood thinners without issue. No other complaints. Tobacco Counseling: She was counseled to discontinue tobacco/nicotine use. Review of Systems Constitutional: Negative for chills, fatigue, fever and unexpected weight change. HENT: Negative for mouth sores. Respiratory: Negative for cough and shortness of breath. Cardiovascular: Negative for chest pain, palpitations and leg swelling. Gastrointestinal: Negative for abdominal pain, blood in stool, constipation, diarrhea, nausea and vomiting. Genitourinary: Negative for hematuria. Musculoskeletal: Negative for arthralgias. Skin: Negative for rash and wound. Neurological: Negative for dizziness, weakness, numbness and headaches. Hematological: Positive for adenopathy. Does not bruise/bleed easily. Objective: Vital signs in last 24 hours: As per nursing note Physical Exam This is a telephone visit Labs: 01/06/19 WBC 11.8 hemoglobin 15.3 hematocrit 46.9 platelet 385,000 07/18/2019 WBC 10 hemoglobin 15.8 hematocrit 49.2 platelet 381,000 creatinine 1.0 01/15/23 WBC 11.9, hemoglobin 15.6, hematocrit 48.2, plts 376,000 02/17/23: WBC 12.2, Hgb 16.1, Hct 48, Plt 408,000, ESR 5, EPO 12.9, Iron 121, % sat 33, Ferritin 22, Flow cytometry negative Imagin02/17/23: Left neck ultrasound- 3.0x0.8x2.9cm mass at the left submandibular region, possibly a lipoma, but indeterminate 04/19/23: MRI face/neck- lesion of concern 2.7x2.2x2.1 shows a hyper tense and saturating fat containing subcutaneous mass overlying the left submandibular gland. Differentiation includes atypical lipoma, or a well differentiated liposarcoma. 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 Assessment: Plan: Patient Active Problem List Diagnosis Date Noted Thrombocytosis 07/11/2018 Leukemoid reaction 12/27/2017 Lupus anticoagulant with hypercoagulable state 12/27/2017 Hypercoagulable state with recurrent thromboembolic events: Continue aspirin, plavix, and eliquis Should be on anticoagulant therapy lifelong History of non-ST segment elevated MD: Patient is on aspirin, Plavix, Eliquis Leukocytosis with lymphadenopathy: Persistent leukocytosis WBC 11.9; ESR normal. Flow cytometry shows no abnormalities. Left neck ultrasound concerning for a lipoma but indeterminate. MRI orders and showing typical lipoma, or a well differentiated liposarcoma. I will order a biopsy today. Erythrocytosis: Elevated HCT 48, EPO 12.9; likely secondary to smoking and obesity; encouraged smoking cessation, weight loss, diet, and exercise Recommend continuing aspirin, plavix, and eliquis Does not need phlebotomy unless Hct >50 Thrombocytosis: Likely reactive due to smoking and obesity, encouraged smoking cessation and weight loss Iron studies normal. Continue aspirin, eliquis, and plavix HTN Patient is on lisinopril, metoprolol HLD Patient is on rosuvastatin DENAE Corrales-Ramonita, 04/22/2023, 1:15 PM Hematology Oncology Nurse Practitioner [facility] Collaborating Physician: Dr. Gómez Patel. This encounter was completed via audio-only two way synchronous communication. Patient's identity confirmed yes Patient gave verbal consent to have these services billed to their insurance and expressed understanding that co-insurance and deductible may apply: yes Time spent by the provider delivering the care documented in this encounter 20 minutes. ETICS PROFESSOR documented in this encounter Plan of Treatment Scheduled Orders Name Type Priority Associated Diagnoses Orde r Schedule BIOPSY Procedures Routine Leukocytosis, unspecified type Neck mass Expected: 04/22/2023, Expires: 04/22/2024 documented as of this encounter Visit Diagnoses Diagnosis Leukocytosis, unspecified type- Primary Neck mass Swelling, mass, or lump in head and neck Erythrocytosis Reserved for inherently not codable concepts WITHOUT codable children Thrombocytosis, unspecified Lupus anticoagulant with hypercoagulable state Primary hypercoagulable state documented in this encounter Care Teams Retail Loss Prevention Investigator Relationship Specialty Start Date End Date Keven Mckenzie MD [address] [place] [address] PCP - General Family Practice 12/27/17 documented as of this encounter
--- OUTSIDE RECORDS SUMMARY | 2024-04-03 10:58 | XMS_ITS | Encounter Summary ---
Author Organization [facility] [employer] [facility] Address [address] [place] [address] Care Team Providers Care Quality Compliance Coordinator Name Role Phone Keven Mckenzie MD Primary Care Provider [phone] Reason for Visit * Reason Comments Follow Up Encounter Details Date Type Department Care Team (Latest Contact Info) Description 05/10/2023 1:00 PM SWEDISH MASSEUSE Office Visit [facility] Oncology and Hematology - Juan Manuel [address] [facility] [address] [place] [address] Madyson Perez FNP [address] [facility] [address] [place] [address] Leukocytosis, unspecified type (Primary Dx); Thrombocytosis; Neck mass; Erythrocytosis; Lupus anticoagulant with hypercoagulable state Social History Tobacco Use Types Packs/Day Years Used Date Smoking Tobacco: Every Day Cigarettes Smokeless Tobacco: Never Tobacco Cessation:Ready to Q uit: Not Asked; Counseling Given: Not Answered Alcohol Use Standard Drinks/Week Comments Yes 0 (1 standard drink = 0.6 oz pur e alcohol) socially Sex and Gender Information Value Date Recorded Sex Assigned at Not on file Gender Identity Not on file Sexual Orientation Not on file documented as of this encounter Last Filed Vital Signs Vital Sign Reading Time Taken Comments Blood Pressure 111/73 05/10/2023 1:13 PM SWEDISH MASSEUSE Pulse 109 05/10/2023 1:13 PM SWEDISH MASSEUSE Temperature - - Respiratory Rate 16 05/10/2023 1:13 PM SWEDISH MASSEUSE Oxygen Saturation 95% 05/10/2023 1:13 PM SWEDISH MASSEUSE Inhaled Oxygen Concentration - - Weight 136.4 kg (300 lb 9.6 oz) 05/10/2023 1:13 PM SWEDISH MASSEUSE Height - - Body Mass Index 44.39 02/17/2023 2:50 PM SWEDISH MASSEUSE documented in this encounter Progress Notes * Madyson Perez, COOK NIGHT - 05/10/2023 1:15 PM CST Hematology / Oncology Progress Note Patient Identification: Name: Alise Penny Age: 38 y.o. Sex: female : 1985 Diagnosis: Leukocytosis with Lymphadenopathy Hypercoagulable state with recurrent thromboembolic events Erythrocytosis Thrombocytosis Current Treatment: Aspirin, eliquis, and plavix Treatment History: Biopsy left submandibular LN- Benign Lipoma Subjective: Patient returns to the clinic for a follow up visit. She states she has quit smoking cigarettes butnow smokes a vape without nicotine. She is worried about the lipoma becoming cancerous and is wondering about surgical removal. She denies any thromboembolic events. She reports some depression when finding out she could have cancer. Tobacco Counseling: She was counseled to discontinue tobacco/nicotine use. Review of Systems All systems reviewed & are unremarkable except as noted in HPI and above Objective: Vital signs in last 24 hours: As per nursing note Physical Exam Vitals reviewed. Constitutional: General: She is awake. Appearance: Normal appearance. She is obese. HENT: Head: Normocephalic and atraumatic. Mouth/Throat: Mouth: Mucous membranes are moist. Pharynx: Oropharynx is clear. Eyes: Pupils: Pupils are equal, round, and reactive to light. Cardiovascular: Rate and Rhythm: Normal rate and regular rhythm. Pulses: Normal pulses. Heart sounds: Normal heart sounds. Pulmonary: Effort: Pulmonary effort is normal. Breath sounds: Normal breath sounds. Abdominal: General: Abdomen is flat. Bowel sounds are normal. Palpations: Abdomen is soft. There is no hepatomegaly or splenomegaly. Musculoskeletal: General: Normal range of motion. Cervical back: Normal range of motion. Lymphadenopathy: Head: Left side of head: Submental adenopathy present. Skin: General: Skin is warm and dry. Neurological: General: No focal deficit present. Mental Status: She is alert and oriented to person, place, and time. Pathology: 05/04/23 Left submandibular biopsy- benign lipoma Imagin02/17/23: Left neck ultrasound- 3.0x0.8x2.9cm mass at the left submandibular region, possibly a lipoma, but indeterminate 04/19/23: MRI face/neck- lesion of concern 2.7x2.2x2.1 shows a hyper tense and saturating fat containing subcutaneous mass overlying the left submandibular gland. Differentiation includes atypical lipoma, or a well differentiated liposarcoma. 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 Labs: 01/06/19 WBC 11.8 hemoglobin 15.3 hematocrit 46.9 platelet 385,000 07/18/2019 WBC 10 hemoglobin 15.8 hematocrit 49.2 platelet 381,000 creatinine 1.0 01/15/23 WBC 11.9, hemoglobin 15.6, hematocrit 48.2, plts 376,000 02/17/23: WBC 12.2, Hgb 16.1, Hct 48, Plt 408,000, ESR 5, EPO 12.9, Iron 121, % sat 33, Ferritin 22, Flow cytometry negative 05/10/23: WBC 10.2, Hgb 15.8, Hct 47.7, Plt 381,000 Assessment: Plan: Patient Active Problem List Diagnosis Date Noted Thrombocytosis 07/11/2018 Leukemoid reaction 12/27/2017 Lupus anticoagulant with hypercoagulable state 12/27/2017 Hypercoagulable state with recurrent thromboembolic events: Continue aspirin, plavix, and eliquis Should be on anticoagulant therapy lifelong History of non-ST segment elevated MO: Patient is on aspirin, Plavix, Eliquis Leukocytosis with lymphadenopathy: Persistent leukocytosis WBC 10.2; ESR normal. Flow cytometry shows no abnormalities. Left neck ultrasound concerning for a lipoma but indeterminate. MRI orders and showing typical lipoma, or a well differentiated liposarcoma. Biopsy shows benign lipoma of left neck. Patient would like to get it removed in the future. Erythrocytosis: Elevated Hgb 15.8, Hct 47.7, EPO was normal; likely secondary to smoking and obesity; encouraged smoking cessation, weight loss, diet, and exercise Recommend continuing aspirin, plavix, and eliquis Does not need phlebotomy unless Hct >50 Thrombocytosis: Plt have decreased from last visit from 408 to 381. Likely reactive due to smoking and obesity, encouraged smoking cessation and weight loss. Iron studies normal. Continue aspirin, eliquis, and plavix HTN Patient is on lisinopril, metoprolol HLD Patient is on rosuvastatin Follow up in 3 months DENAE Corrales-C, 05/10/2023, 1:15 PM Hematology Oncology Nurse Practitioner [facility] Collaborating Physician: Dr. Gómez Patel ISH MASSEUSE documented in this encounter Plan of Treatment Scheduled Orders Name Type Priority Associated Diagnoses Orde r Schedule CBC WITH DIFFERENTIAL Lab Routine Thrombocytosis Leukocytosis, unspecified type Expected: 08/02/2023, Expires: 05/10/2024 documented as of this encounter Visit Diagnoses Diagnosis Leukocytosis, unspecified type- Primary Thrombocytosis Essential thrombocythemia Neck mass Swelling, mass, or lump in head and neck Erythrocytosis Reserved for inherently not codable concepts WITHOUT codable children Lupus anticoagulant with hypercoagulable state Primary hypercoagulable state documented in this encounter Care Teams Quality Compliance Coordinator Relationship Specialty Start Date End Date Keven Mckenzie MD [address] [place] [address] PCP - General Family Practice 12/27/17 documented as of this encounter
--- OUTSIDE RECORDS SUMMARY | 2024-04-03 10:58 | XMS_ITS | Clinical Summary ---
Author Organization [facility] Address [address] [place] [address] Care Team Providers Care Picc Nurse Name Role Phone Keven Mckenzie MD Primary Care Provider [phone] Allergies Active Allergy Reactions Criticality Noted Date Comments Lamotrigine Hives High 02/05/2014 Medications Medication Sig Dispensed Refills Start Date End Date Status clopidogrel (PLAVIX) 75 mg Tablet clopidogrel 75 mg tablet Take 1 tablet every day by oral route. Active aspirin (ASPIR-81 ORAL) Aspir-81 Active apixaban (ELIQUIS) 5 mg tablet Eliquis 5 mg tablet Take 1 tablet twice a day by oral route. Active lisinopril (PRINIVIL) 5 mg tablet lisinopril 5 mg tablet Active rosuvastatin (CRESTOR) 10 mg tablet Take 10 mg by mouth daily. Active metoprolol succinate (TOPROL XL) 50 mg Extended Release 24 hour tablet Take 100 mg by mouth daily. Active Active Problems Problem Noted Date Diagnosed Date Thrombocytosis 07/11/2018 Leukemoid reaction 12/27/2017 Lupus anticoagulant with hypercoagulable state 0 12/27/2017 Family History Medical History Relation Name Comments Healthy Brother No Known Problems Daughter Healthy Father Breast Cancer Mother Diabetes Mother Heart Disease Mother Ovarian Cancer Mother Uterine Cancer Mother SLE Sister Relation Name Status Comments Brother Daughter Alive Father Alive Mother Alive Sister Alive Social History Tobacco Use Types Packs/Day Years [...] on file Sexual Orientation Not on file Last Filed Vital Signs Vital Sign Reading Time Taken Comments Blood Pressure 111/73 05/10/2023 1:13 PM MOBILE CRANE OPERATOR Pulse 109 05/10/2023 1:13 PM MOBILE CRANE OPERATOR Temperature 37.1 ??C (98.8 ??F) 02/17/2023 2:50 PM CS T Respiratory Rate 16 05/10/2023 1:13 PM MOBILE CRANE OPERATOR Oxygen Saturation 95% 05/10/2023 1:13 PM MOBILE CRANE OPERATOR Inhaled Oxygen Concentration - - Weight 136.4 kg (300 lb 9.6 oz) 05/10/2023 1:13 PM MOBILE CRANE OPERATOR Height 175.3 cm (5' 9 ) 02/17/2023 2:50 PM MOBILE CRANE OPERATOR Body Mass Index 44.39 02/17/2023 2:50 PM MOBILE CRANE OPERATOR Plan of Treatment Health Maintenance Due Date Last Done Comments Pre-Diabetes and Diabetes Screening 1985 PNEUMOCOCCAL VACCINE 0-64 YE ARS (1 of 2 - PCV) 1993 DTAP/TDAP/TD VACCINES (1 - Tdap) 2006 HEPATITIS B VACCINES (1 of 3 - 19+ 3-dose series) 2006 CERVICAL CANCER SCREENING 2017 07/07/2010 INFLUENZA VACCINE (#1) 2023 HPV VACCINES Aged Out No longer eligi ble based on patient's age to complete this topic Care Teams Picc Nurse Relationship Specialty Start Date End Date Keven Mckenzie MD [address] [place] [address] PCP - General Family Practice 12/27/17
--- OUTSIDE RECORDS SUMMARY | 2024-04-03 10:58 | XMS_ITS | Encounter Summary ---
Author Organization [facility] Address [address] [place] [address] Care Team Providers Care Diver Assistant Name Role Phone Keven Mckenzie MD Primary Care Provider [phone] Encounter Details Date Type Department Care Team (Late st Contact Info) Description 05/01/2023 External Device Data STL ABSTRACTION Provider, Abstract NO ADDRESS ON FILE Social History Tobacco Use Types Packs/Day Years Used Date Smoking Tobacco: Every Day Cigarettes Smokeless Tobacco: Never Alcohol Use Standard Drinks/Week Comments Yes 0 (1 standard drink = 0.6 oz pur e alcohol) socially Sex and Gender Information Value Date Recorded Sex Assigned at Not on file Gender Identity Not on file Sexual Orientation Not on file documented as of this encounter Plan of Treatment Not on file documented as of this encounter Visit Diagnoses Not on filedocumented in this encounter Care Teams Diver Assistant Relationship Specialty Start Date End Date Keven Mckenzie MD [address] [place] [address] PCP - General Family Practice 12/27/17 documented as of this encounter
--- OUTSIDE RECORDS SUMMARY | 2024-04-03 10:58 | XMS_ITS | Encounter Summary ---
Author Organization [facility] [employer] [facility] Address [address] [place] [address] Care Team Providers Care Cold Press Operator Name Role Phone Keven Mckenzie MD Primary Care Provider [phone] Reason for Referral * MRI (Routine) - Closed Specialty Diagnoses / Procedures Referred By Dahiana staples Referred To Contact Diagnoses Neck mass Procedures MRI SOFT TISSUE NECK W WO CONTRAST Madyson Perez FNP [address] [address] [place] [id number] Referral ID Status Reason Start Date Expiration Date V isits Requested Visits Authorized [id number] Closed [facility] CTS 04/16/2023 05/15/2023 1 1 M CLINICIAN Encounter Details Date Type Department Care Team (Late st Contact Info) Description 04/16/2023 Orders Only [facility] Oncology and Hematology [facility] [address] [place] [address] Madyson Perez FNP [address] [address] Neck mass (Primary Dx) Social History Tobacco Use Types Packs/Day Years [...] as of this encounter Plan of Treatment Scheduled Orders Name Type Priority Associated Diagnoses Orde r Schedule MRI SOFT TISSUE NECK W WO CONTRAST Imaging Routine Neck mass Expected: 04/16/2023, Expires: 04/16/2024 documented as of this encounter Visit Diagnoses Diagnosis Neck mass- Primary Swelling, mass, or lump in head and neck documented in this encounter Care Teams Cold Press Operator Relationship Specialty Start Date End Date Keven Mckenzie MD [address] [place] [address] PCP - General Family Practice 12/27/17 documented as of this encounter
--- OUTSIDE RECORDS SUMMARY | 2024-04-03 10:58 | XMS_ITS | Encounter Summary ---
Author Organization [facility] [employer] [facility] Address [address] [place] [address] Care Team Providers Care Chemical Waste Management Technician Name Role Phone Keven Mckenzie MD Primary Care Provider [phone] Encounter Details Date Type Department Care Team (Late st Contact Info) Description 05/05/2023 Orders Only [facility] Oncology and Hematology - Juan Manuel [address] [place] [address] Madyson Perez FNP [address] [place] [address] Social History Tobacco Use Types Packs/Day Years [...] on file documented as of this encounter Procedures Procedure Name Priority Date/Time Associated Diagnosis Comments PATHOLOGY REPORT Routine 05/04/2023 11:08 AM TUBE WINDER documented in this encounter Results * PATHOLOGY REPORT (05/04/2023 11:08 AM TUBE WINDER) Madyson PHILIPPE PATHOLOGY/CYTOLOGY O RDERABLES documented in this encounter Visit Diagnoses Not on filedocumented in this encounter Care Teams Chemical Waste Management Technician Relationship Specialty Start Date End Date Keven Mckenzie MD [address] [place] [address] [place] [address] PCP - General Family Practice 12/27/17 documented as of this encounter
--- OUTSIDE RECORDS SUMMARY | 2024-04-03 10:58 | XMS_ITS | Encounter Summary ---
Author Organization [facility] [employer] [facility] Address [address] [place] [address] Care Team Providers Care Power Generating Plant Operator Name Role Phone Keven Mckenzie MD Primary Care Provider [phone] Encounter Details Date Type Department Care Team (Late st Contact Info) Description 04/21/2023 Orders Only [facility] Oncology and Hematology - Juan Manuel [address] [place] [address] Madyson Perez, DENAE [address] [facility] [address] [place] [address] Leukocytosis, unspecified type (Primary Dx) Social History Tobacco Use Types [...] r Schedule CBC WITH DIFFERENTIAL Lab Routine Leukocytosis, unspecified type Expected: 04/26/2023, Expires: 04/21/2024 documented as of this encounter Visit Diagnoses Diagnosis Leukocytosis, unspecified type- Primary documented in this encounter Care Teams Power Generating Plant Operator Relationship Specialty Start Date End Date Keven Mckenzie MD [address] [place] [address] [place] [address] PCP - General Family Practice 12/27/17 documented as of this encounter
--- OUTSIDE RECORDS SUMMARY | 2024-04-03 10:58 | XMS_ITS | Encounter Summary ---
Author Organization [facility] Address [address] [place] [address] Care Team Providers Care Dormitory Supervisor Name Role Phone Keven Mckenzie MD Primary Care Provider [phone] Encounter Details Date Type Department Care Team (Late st Contact Info) Description 03/17/2023 External Device Data STL ABSTRACTION Provider, Abstract [...] on filedocumented in this encounter Care Teams Dormitory Supervisor Relationship Specialty Start Date End Date Keven Mckenzie MD [address] [place] [address] PCP - General Family Practice 12/27/17 documented as of this encounter
--- OUTSIDE RECORDS SUMMARY | 2024-04-03 10:58 | XMS_ITS | Encounter Summary ---
Author Organization [facility] Address [address] [place] [address] Care Team Providers Care Financial Manager Name Role Phone Keven Mckenzie MD Primary Care Provider [phone] Encounter Details Date Type Department Care Team (Late st Contact Info) Description 03/30/2023 External Device Data STL ABSTRACTION Provider, Abstract [...] on filedocumented in this encounter Care Teams Financial Manager Relationship Specialty Start Date End Date Keven Mckenzie MD [address] [place] [address] PCP - General Family Practice 12/27/17 documented as of this encounter
--- OUTSIDE RECORDS SUMMARY | 2024-04-03 10:58 | XMS_ITS | Encounter Summary ---
Author Organization [facility] Address [address] [place] [address] Care Team Providers Care Quality Assurance Monitor Final Name Role Phone Keven Mckenzie MD Primary Care Provider [phone] Encounter Details Date Type Department Care Team [...] on filedocumented in this encounter Care Teams Quality Assurance Monitor Final Relationship Specialty Start Date End Date Keven Mckenzie MD [address] [place] [address] PCP - General Family Practice 12/27/17 documented as of this encounter
--- OUTSIDE RECORDS SUMMARY | 2024-04-03 10:58 | XMS_ITS | Encounter Summary ---
Author Organization [facility] Address [address] [place] [address] Care Team Providers Care Soil Scientist Name Role Phone Keven Mckenzie MD Primary Care Provider [phone] Encounter Details Date Type Department Care Team [...] on filedocumented in this encounter Care Teams Soil Scientist Relationship Specialty Start Date End Date Keven Mckenzie MD [address] [place] [address] PCP - General Family Practice 12/27/17 documented as of this encounter
--- OUTSIDE RECORDS SUMMARY | 2024-04-03 10:58 | XMS_ITS | Encounter Summary ---
Author Organization [facility] Address [address] [place] [address] Care Team Providers Care Newspaper Subscription Solicitor Name Role Phone Keven Mckenzie MD Primary Care Provider [phone] Encounter Details Date Type Department Care Team (Late st Contact Info) Description 04/30/2023 External Device Data STL ABSTRACTION Provider, Abstract [...] on filedocumented in this encounter Care Teams Newspaper Subscription Solicitor Relationship Specialty Start Date End Date Keven Mckenzie MD [address] [place] [address] PCP - General Family Practice 12/27/17 documented as of this encounter
--- OUTSIDE RECORDS SUMMARY | 2024-04-03 10:58 | XMS_ITS | Encounter Summary ---
Author Organization [facility] Address [address] [place] [address] Care Team Providers Care Crystalizer Name Role Phone Keven Mckenzie MD Primary Care Provider [phone] Encounter Details Date Type Department Care Team (Late st Contact Info) Description 11/30/2023 External Device Data STL ABSTRACTION Provider, Abstract [...] on filedocumented in this encounter Care Teams Crystalizer Relationship Specialty Start Date End Date Keven Mckenzie MD [address] [place] [address] PCP - General Family Practice 12/27/17 documented as of this encounter
--- OUTSIDE RECORDS SUMMARY | 2024-04-03 10:58 | XMS_ITS | Encounter Summary ---
Author Organization [facility] Address [address] [place] [address] Care Team Providers Care Balance Bridge Assembler Name Role Phone Keven Mckenzie MD Primary Care Provider [phone] Encounter Details Date Type Department Care Team (Late st Contact Info) Description 12/21/2023 External Device Data STL ABSTRACTION Provider, Abstract [...] on filedocumented in this encounter Care Teams Balance Bridge Assembler Relationship Specialty Start Date End Date Keven Mckenzie MD [address] [place] [address] PCP - General Family Practice 12/27/17 documented as of this encounter
--- OUTSIDE RECORDS SUMMARY | 2024-04-03 10:58 | XMS_ITS | Encounter Summary ---
Author Organization [facility] Address [address] [place] [address] Care Team Providers Care Manager Winter Name Role Phone Keven Mckenzie MD Primary Care Provider [phone] Encounter Details Date Type Department Care Team (Late st Contact Info) Description 10/19/2023 External Device Data STL ABSTRACTION Provider, Abstract [...] on filedocumented in this encounter Care Teams Manager Winter Relationship Specialty Start Date End Date Keven Mckenzie MD [address] [place] [address] PCP - General Family Practice 12/27/17 documented as of this encounter
--- OUTSIDE RECORDS SUMMARY | 2024-04-03 10:58 | XMS_ITS | Encounter Summary ---
Author Organization [facility] [email or web address] Address [address] [place] [address] Care Team Providers Care Business Division Chair Name Role Phone Keven Mckenzie MD Primary Care Provider [phone] Encounter Details Date Type Department Care Team (Late st Contact Info) Description 04/22/2023 Orders Only [facility] Oncology and Hematology - [place] [address] [place] [address] Madyson Perez FNP [address] [facility] [address] [place] [address] Social History Tobacco Use Types Packs/Day [...] Procedure Name Priority Date/Time Associated Diagnosis Comments MRI ORBIT FACE NECK W WO CONTRAST Routine 04/19/2023 12:57 PM TABLE AND DESK FINISHER documented in this encounter Results * MRI ORBIT FACE NECK W WO CONTRAST (04/19/2023 12:57 PM TABLE AND DESK FINISHER) Anatomical Region Laterality Modality Head Other Madyson PHILIPPE MR ORDERABLES documented in this encounter Visit Diagnoses Not on filedocumented in this encounter Care Teams Business Division Chair Relationship Specialty Start Date End Date Keven Mckenzie MD [address] [place] [address] [place] [address] PCP - General Family Practice 12/27/17 documented as of this encounter
--- OUTSIDE RECORDS SUMMARY | 2024-04-03 10:58 | XMS_ITS | Encounter Summary ---
Author Organization [facility] [employer] [facility] Address [address] [place] [address] Care Team Providers Care Conference Translator Name Role Phone Keven Mckenzie MD Primary Care Provider [phone] Encounter Details Date Type Department Care Team (Late st Contact Info) Description 03/08/2023 Orders Only [facility] Oncology and Hematology - [place] [address] [place] [address] [address] [place] [address] Gómez Patel MD [address] [facility] [address] [place] [address] Social History Tobacco Use Types Packs/Day Years [...] on filedocumented in this encounter Care Teams Conference Translator Relationship Specialty Start Date End Date Keven Mckenzie MD [address] [place] [address] PCP - General Family Practice 12/27/17 documented as of this encounter
--- OUTSIDE RECORDS SUMMARY | 2024-04-03 10:58 | XMS_ITS | Encounter Summary ---
Author Organization [facility] [employer] [facility] Address [address] [place] [address] Care Team Providers Care Athletic Team Physician Name Role Phone Keven Mckenzie MD Primary Care Provider [phone] Encounter Details Date Type Department Care Team (Late st Contact Info) Description 05/03/2023 Orders Only [facility] Oncology and Hematology - [place] Manuel [address] [place] [address] Madyson Perez FNP [address] [facility] [address] [place] [address] Neck mass (Primary Dx) Social History [...] Diagnoses Orde r Schedule BIOPSY Procedures Routine Neck mass Expected: 05/03/2023, Expires: 05/03/2024 documented as of this encounter Visit Diagnoses Diagnosis Neck mass- Primary Swelling, mass, or lump in head and neck documented in this encounter Care Teams Athletic Team Physician Relationship Specialty Start Date End Date Keven Mckenzie MD [address] [place] [address] PCP - General Family Practice 12/27/17 documented as of this encounter
--- OUTSIDE RECORDS SUMMARY | 2024-04-03 10:58 | XMS_ITS | Encounter Summary ---
Author Organization [facility] Address [address] [place] [address] Care Team Providers Care Copyman Name Role Phone Keven Mckenzie MD Primary Care Provider [phone] Encounter Details Date Type Department Care Team (Late st Contact Info) Description 02/22/2023 Abstract [facility] Oncology and Hematology - [place] [address] [place] [address] [address] [place] [address] Gómez Patel MD [address] [facility] [address] [place] [address] Social History Tobacco Use Types [...] on filedocumented in this encounter Care Teams Copyman Relationship Specialty Start Date End Date Keven Mckenzie MD [address] [place] [address] PCP - General Family Practice 12/27/17 documented as of this encounter
--- OUTSIDE RECORDS SUMMARY | 2024-04-03 10:58 | XMS_ITS | Encounter Summary ---
Author Organization [facility] Address [address] [place] [address] Care Team Providers Care Menhaden Fishing Crew Member Name Role Phone Keven Mckenzie MD Primary Care Provider [phone] Encounter Details Date Type Department Care Team (Late st Contact Info) Description 12/14/2023 External Device Data STL ABSTRACTION Provider, Abstract [...] on filedocumented in this encounter Care Teams Menhaden Fishing Crew Member Relationship Specialty Start Date End Date Keven Mckenzie MD [address] [place] [address] PCP - General Family Practice 12/27/17 documented as of this encounter
--- OUTSIDE RECORDS SUMMARY | 2024-04-03 10:58 | XMS_ITS | Encounter Summary ---
Author Organization [facility] Address [address] [place] [address] Care Team Providers Care Color Control Operator Name Role Phone Keven Mckenzie MD Primary Care Provider Encounter Details Date Type Department Care Team (Late st Contact Info) Description 10/05/2023 External Device Data STL ABSTRACTION Provider, Abstract [...] on filedocumented in this encounter Care Teams Color Control Operator Relationship Specialty Start Date End Date Keven Mckenzie MD [address] [place] [address] PCP - General Family Practice 12/27/17 documented as of this encounter
--- OUTSIDE RECORDS SUMMARY | 2024-04-03 10:59 | XMS_ITS | Encounter Summary ---
Author Organization [facility] Address [address] [place] [address] Care Team Providers Care Strapper Name Role Phone Keven Mckenzie MD Primary Care Provider [phone] Encounter Details Date Type Department Care Team (Late st Contact Info) Description 12/27/2017 Orders Only [facility] Oncology and Hematology - Juan Manuel [address] [facility] [address] [place] [address] Karine Altamirano, RN Lupus anticoagulant with hypercoagulable state Social History Tobacco Use Types Packs/Day Years Used Date Smoking Tobacco: Some Days Cigarettes Smokeless Tobacco: Never Alcohol Use Standard Drinks/Week Comments No 0 (1 standard drink = 0.6 oz pur e alcohol) Sex and Gender Information Value Date Recorded Sex Assigned at Not on file Gender Identity Not on file Sexual Orientation Not on file documented as of this encounter Plan of Treatment Not on file documented as of this encounter Visit Diagnoses Diagnosis Lupus anticoagulant with hypercoagulable state Primary hypercoagulable state documented in this encounter Care Teams Strapper Relationship Specialty Start Date End Date Keven Mckenzie MD [address] [place] [address] PCP - General Family Practice 12/27/17 documented as of this encounter
--- OUTSIDE RECORDS SUMMARY | 2024-04-03 10:59 | XMS_ITS | Encounter Summary ---
Author Organization [facility] Address [address] [place] [address] Care Team Providers Care Heel Sander Rubber Name Role Phone Keven Mckenzie MD Primary Care Provider Reason for Visit * Reason Comments Follow Up 6 month f/u w/labs Encounter Details Date Type Department Care Team (Late st Contact Info) Description 07/18/2019 10:00 AM CDT Office Visit [facility] Oncology and Hematology - [place] [address] [place] [address] [address] [place] [address] Gómez Patel MD [address] [facility] [address] [place] [address] Leukemoid reaction (Primary Dx) Social History Tobacco Use Types Packs/Day Years Used Date Smoking Tobacco: Some Days Cigarettes Smokeless Tobacco: Never Alcohol Use Standard Drinks/Week Comments No 0 (1 standard drink = 0.6 oz pur e alcohol) Sex and Gender Information Value Date Recorded Sex Assigned at Not on file Gender Identity Not on file Sexual Orientation Not on file COVID-19 Exposure Response Date Recorded In the last month, have you been in contact with someone who was confirmed or suspected to have Coronavirus / COVID-19? No / Unsure 07/18/2019 9:53 AM CDT documented as of this encounter Last Filed Vital Signs Vital Sign Reading Time Taken Comments Blood Pressure 119/79 07/18/2019 10:17 AM CDT Pulse 94 07/18/2019 10:17 AM CDT Temperature 36.5 ??C (97.7 ??F) 07/18/2019 1 0:17 AM CDT Respiratory Rate - - Oxygen Saturation 96% 07/18/2019 10: 17 AM CDT Inhaled Oxygen Concentration - - Weight 128.1 kg (282 lb 6.4 oz) 020 10:17 AM CDT Height 175.3 cm (5' 9 ) 07/18/2019 10:1 7 AM CDT Body Mass Index 41.7 07/18/2019 10:17 AM CDT documented in this encounter Progress Notes * Gómez Patel MD - 07/18/2019 1:00 PM CDT HEMATOLOGY / ONCOLOGY PROGRESS NOTE Patient Identification: Name: Alise Penny Age: 34 y.o. Sex: female : 1985 DIAGNOSIS Hypercoagulable state with history of recurrent thromboembolic event started in 2010. 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 TREATMENT HISTORY Patient stopped taking Eliquis as she ran out of it just about 3 days ago. SUBJECTIVE Patient came into the office for follow-up visit. She denies any chest pain and shortness of breath. She continues to smoke due to stress. Denies any other complaints. Review of system Constitutional: denies fevers, sweats, fatigue, malaise, weight loss HEENT: denies sinus congestion, hearing or vision problems Respiratory: denies cough, dyspnea, wheeze Cardiovascular: denies chest pain, exertional chest pressure/discomfort, nausea, syncope, shortnessof breath GI: denies constipation, diarrhea, dsyphagia, reflux symptoms, vomiting, melena : denies dysuria, frequency, incontinence, urgency Integumentary system: no lymphadenopathy, sweats, flushing Musculoskeletal: denies: myalgia, arthralgia Neurological: denies blurry or disturbed vision, numbness/weakness, dizziness Skin: No lumps, bumps or rashes. 12 point review system was reviewed and as above Objective: Vital signs in last 24 hours: As per nursing note Exam: General appearance: alert, cooperative, no distress, appears stated age Head: normocephalic, without obvious abnormality, atraumatic Eyes: conjunctivae/corneas clear, EOM's intact Ears: normal external ear canals AU Nose: Nares normal. Septum midline. Mucosa normal. No drainage or sinus tenderness Throat: Lips, mucosa, and tongue normal. Teeth and gums normal Neck: supple, symmetrical, trachea midline. Lungs: clear to auscultation bilaterally Heart: regular rate and rhythm, S1, S2 normal, no murmur, click, rub or gallop Abdomen: soft, non-tender. Bowel sounds normal. No masses, No organomegaly Extremities: extremities normal, atraumatic, no cyanosis or edema Skin: Skin color, texture, turgor normal. No rashes or lesions Lymph nodes: No lymphadenopathy Neuro: No obvious focal deficit Examination as above [facility] Labs from January 06, 2019 showed WBC 11.8 hemoglobin 15.3 hematocrit 46.9 platelet 385,000 Labs from July 17 showed WBC 10 hemoglobin 15.8 hematocrit 49.2 platelet 381,000 creatinine 1.0 Assessment: Plan: Patient Active Problem List Diagnosis Date Noted ??? Thrombocytosis 07/11/2018 ??? Leukemoid reaction 12/27/2017 ??? Lupus anticoagulant with hypercoagulable state 12/27/2017 Hypercoagulable state with recurrent thromboembolic events initially diagnosed in 2010. Patient hada TIA in October 2017 with non-ST segment [place] and left ventricle thrombosis. No evidence of currently blood clot. She will continue Plavix and aspirin. Patient ran out of [employer]. Insurance will not cover the Eliquis. At this time I will continue with Plavix and aspirin alone. I will see her back in 6 months. History of IL. Patient is on aspirin and Plavix. Reactive leukocytosis and thrombocytosis. Patient is on aspirin. Again I recommended to quit smoking. No need for phlebotomy at this time. TOBACCO COUNSELING She is not a tobacco user. 07/18/2019 Gómez Patel MD documented in this encounter Plan of Treatment Not on file documented as of this encounter Results * CBC WITH DIFFERENTIAL (07/18/2019) Blood Gómez Patel MD HEMATOLOGY ORDERABLE S NON [facility] documented in this encounter Visit Diagnoses Diagnosis Leukemoid reaction- Primary documented in this encounter Care Teams Heel Sander Rubber Relationship Specialty Start Date End Date Keven Mckenzie MD [address] [place] [address] PCP - General Family Practice 12/27/17 documented as of this encounter
--- OUTSIDE RECORDS SUMMARY | 2024-04-03 10:59 | XMS_ITS | Encounter Summary ---
Author Organization [facility] Address [address] [place] [address] Care Team Providers Care Shop Hand Name Role Phone Keven Mckenzie MD Primary Care Provider [phone] Reason for Visit * Reason Comments Follow Up Results Encounter Details Date Type Department Care Team (Late st Contact Info) Description 05/02/2018 9:30 AM SALES ENGINEER ACCOUNT MANAGER Office Visit [facility] Oncology and Hematology - [place] [address] [facility] [address] [place] [address] Gómez Patel MD [address] [facility] [address] [place] [address] Leukocytosis, unspecified type (Primary Dx); Leukemoid reaction Social History Tobacco Use Types Packs/Day Years [...] Sign Reading Time Taken Comments Blood Pressure 200/107 05/02/2018 8:51 AM SALES ENGINEER ACCOUNT MANAGER Pulse 124 05/02/2018 8:51 AM SALES ENGINEER ACCOUNT MANAGER Temperature 36.8 ??C (98.2 ??F) 05/02/2018 8:51 AM CS T Respiratory Rate - - Oxygen Saturation 98% 05/02/2018 8:51 AM SALES ENGINEER ACCOUNT MANAGER Inhaled Oxygen Concentration - - Weight 119.7 kg (264 lb) 05/02/2018 8:51 AM SALES ENGINEER ACCOUNT MANAGER Height 175.3 cm (5' 9 ) 05/02/2018 8:51 AM SALES ENGINEER ACCOUNT MANAGER Body Mass Index 38.99 05/02/2018 8:51 AM SALES ENGINEER ACCOUNT MANAGER documented in this encounter Progress Notes * Gómez Patel MD - 05/02/2018 9:38 AM CST HEMATOLOGY / ONCOLOGY PROGRESS NOTE Patient Identification: Name: Alise Penny Age: 33 y.o. Sex: female : 1985 Subjective: HPI This is a 32-year-old obese female who has a complicated clotting history starting from 2010 when she had thrombus in the heart and was diagnosed to have a stroke causing her headache and syncopal episode. She was treated with Coumadin at that time. She stayed on Coumadin and had another episode of a stroke with weakness any speech changes in 2011. She was then started on Lovenox that she continued for 9 months duration. Her third and fourth a stroke was in 2012 while on Lovenox. Lovenox was subsequently discontinued in January 2014 likely secondary to insurance noncoverage. She didwell until her recent admission to [facility] on October 13 when she came into the hospital with right-sided weakness and probable diagnosis of TIA. She also had non-ST segment elevated HI related to embolism to the LAD and found to have left ventricle thrombosis on the transesophageal echocardiogram. She was treated with heparin and was subsequently discharged on eliquis. Hypercoagulable workup was ordered in the hospital. Today she is feeling much better without any weakness any speech changes. ?? Interval History: Patient has cut down on his smoking and currently smokes one cigarette every other day according toher description. Review of system Constitutional: No fever; no night sweats; no anorexia; no weight loss; no fatique Respiratory: No shortness of breath; no pleuritic chest pain; no cough; no hemoptysis Cardiac: No cardiac-like chest pain; no palpitations; no orthopnea; no PND; no SMITH GI: No abdominal pain; no nausea; no vomiting; no diarrhea; no hematochezia; no melena Musculosketetal: no bone pain; no arthralgia; no joint swelling; no myalgia; Neuro: No headache; no change in vision; no sensory changes; no muscle weakness; no confusion; no seizures Ext no edema Objective: Vital signs in last 24 hours: As per nursing note Exam: Gen: NAD Lungs: Clear Cardiac: S1 and S2 without murmurs or gallops Abd: Soft, tender, no hepatomegally, no masses Extr: No LE edema Scheduled Meds:@MEDSSCHEDULED@ Continuous Infusions:@MEDSINFUSIONS@ Data Review: [facility] Labs from April 18 showed negative lupus anticoagulant, WBC 9.4 hemoglobin 13 platelet 486,000. @IMAGEIMP@ Assessment: Plan: Patient Active Problem List Diagnosis Date Noted ??? Leukemoid reaction 12/27/2017 ??? Lupus anticoagulant with hypercoagulable state 12/27/2017 Hypercoagulable state with recurrent thromboembolic events dated back to 2010 when she was initially diagnosed to have a stroke and found to have thrombosis in the heart. She was treated with anticoagulation therapy with Coumadin. Her most recent event was in October 2017 when she came into the hospital with right- sided weakness and found to have transient ischemic attack. She also had non-ST segment elevated HI related to embolism to the LAD. Transesophageal echocardiogram also showed left ventricle thrombosis. She is currently on eliquis along with Plavix and aspirin. She will continue eliquisfor long-term duration. Repeat lupus anticoagulant testing came back negative. ?? Leukocytosis. Reactive with elevated C-reactive protein. Likely secondary to smoking arthritis. I will repeat CBC in 3 months. I have spent 10 minutes talking to the patient regarding smoking cessation. We discussed risk of continuing smoking that includes risk of cardiovascular events, thrombo embolic events and risk of malignancies including lung cancer. We also discussed various recommendations for smoking cessation including use of nicotine patch, Wellbutrin and Chantix. Patient has cut down smoking but still continues to smoke. ? 05/02/2018 Gómez Patel MD S ENGINEER ACCOUNT MANAGER documented in this encounter Plan of Treatment Not on file documented as of this encounter Results * (ABNORMAL) CBC WITH DIFFERENTIAL (07/04/2018) Blood Gómez Patel MD HEMATOLOGY ORDERABLE S EXTERNAL LAB documented in this encounter Visit Diagnoses Diagnosis Leukocytosis, unspecified type- Primary Leukemoid reaction documented in this encounter Care Teams Shop Hand Relationship Specialty Start Date End Date Keven Mckenzie MD [address] [place] [id number] PCP - General Family Practice 12/27/17 documented as of this encounter
--- OUTSIDE RECORDS SUMMARY | 2024-04-03 10:59 | XMS_ITS | Encounter Summary ---
Author Organization [facility] Address [address] [facility] Attn: Epic Prelude ADT [place] [address] Care Team Providers Care Plastic Welder Name Role Phone Keven Mckenzie MD Primary Care Provider [phone] Encounter Details Date Type Department Care Team (Latest Contact Info) Description 07/18/2019 Travel Social History Tobacco Use Types Packs/Day Years [...] AM CDT documented as of this encounter Plan of Treatment Not on file documented as of this encounter Visit Diagnoses Not on filedocumented in this encounter Care Teams Plastic Welder Relationship Specialty Start Date End Date Keven Mckenzie MD [address] [place] [address] PCP - General Family Practice 12/27/17 documented as of this encounter
--- OUTSIDE RECORDS SUMMARY | 2024-04-03 10:59 | XMS_ITS | Encounter Summary ---
Author Organization [facility] Layer [facility] Address [address] [place] [address] Care Team Providers Care Blow Molder Name Role Phone Keven Mckenzie MD Primary Care Provider [phone] Encounter Details Date Type Department Care Team (Late st Contact Info) Description 07/19/[address] [facility] Oncology and Hematology - Juan Manuel [address] [place] [address] [facility] [address] [place] [address] Gómez Patel MD [address] [facility] [address] [place] [address] Leukemoid reaction Social History Tobacco Use Types [...] Procedure Name Priority Date/Time Associated Diagnosis Comments CBC WITH DIFFERENTIAL Routine 07/18/2019 Leukemoid reaction documented in this encounter Results * CBC WITH DIFFERENTIAL (07/18/2019) Blood Gómez Patel MD HEMATOLOGY ORDERABLE S Performing Organization Address City/State/[facility] Co de Phone Number NON [facility] documented in this encounter Visit Diagnoses Diagnosis Leukemoid reaction documented in this encounter Care Teams Blow Molder Relationship Specialty Start Date End Date Keven Mckenzie MD [address] [place] [address] PCP - General Family Practice 12/27/17 documented as of this encounter
--- OUTSIDE RECORDS SUMMARY | 2024-04-03 10:59 | XMS_ITS | Encounter Summary ---
Author Organization [facility] Address [address] [place] [address] Care Team Providers Care Import/Export Freight Forwarder Name Role Phone Keven Mckenzie MD Primary Care Provider [phone] Encounter Details Date Type Department Care Team (Late st Contact Info) Description 04/08/2018 Orders Only [facility] Oncology and Hematology - Juan Manuel [address] [place] [address] Karine Altamirano RN Leukocytosis, unspecified type Social History Tobacco Use Types Packs/Day Years [...] Associated Diagnosis Comments CBC WITH DIFFERENTIAL Routine 04/11/2018 Leukocytosis, unspecified type documented in this encounter Results * (ABNORMAL) CBC WITH DIFFERENTIAL (04/11/2018) Blood Gómez Patel MD HEMATOLOGY ORDERABLE S EXTERNAL LAB documented in this encounter Visit Diagnoses Diagnosis Leukocytosis, unspecified type documented in this encounter Care Teams Import/Export Freight Forwarder Relationship Specialty Start Date End Date Keven Mckenzie MD [address] [place] [address] PCP - General Family Practice 12/27/17 documented as of this encounter
--- OUTSIDE RECORDS SUMMARY | 2024-04-03 10:59 | XMS_ITS | Encounter Summary ---
Author Organization [facility] Address [address] [place] [address] Care Team Providers Care Imcu Nurse Name Role Phone Keven Mckenzie MD Primary Care Provider [phone] Reason for Visit * Reason Onset Date Comments Needs Orders Written 01/09/2020 Encounter Details Date Type Department Care Team (Late st Contact Info) Description 01/09/2020 Telephone [facility] Oncology and Hematology - Juan Manuel [address] [facility] [address] [place] [address] [place] [address] Gómez Patel MD [address] [facility] [address] [place] [address] Needs Orders Written Social History Tobacco Use Types Packs/Day Years [...] as of this encounter Visit Diagnoses Diagnosis Leukemoid reaction- Primary Thrombocytosis Essential thrombocythemia documented in this encounter Care Teams Imcu Nurse Relationship Specialty Start Date End Date Keven Mckenzie MD [address] [place] [address] PCP - General Family Practice 12/27/17 documented as of this encounter
--- OUTSIDE RECORDS SUMMARY | 2024-04-03 10:59 | XMS_ITS | Encounter Summary ---
Author Organization [facility] Address [address] [place] [address] Care Team Providers Care Express Manager Name Role Phone Keven Mckenzie MD Primary Care Provider [phone] Reason for Visit * Reason Onset Date Comments Results 12/28/2017 Encounter Details Date Type Department Care Team (Late st Contact Info) Description 12/28/2017 Telephone [facility] Oncology and Hematology - Juan Manuel [address] [facility] [address] [place] [address] Gómez Patel MD [address] [facility] [address] [place] [address] Results Social History Tobacco Use Types Packs/Day Years Used Date Smoking Tobacco: Some Days Cigarettes Smokeless Tobacco: Never Alcohol Use Standard Drinks/Week Comments No 0 (1 standard drink = 0.6 oz pur e alcohol) Sex and Gender Information Value Date Recorded Sex Assigned at Not on file Gender Identity Not on file Sexual Orientation Not on file documented as of this encounter Miscellaneous Notes * Telephone Encounter - Karine Altamirano RN - 12/28/2017 5:29 PM CDT Labs reviewed by Dr. Patel, pt to hae repeat CBC 3 monts, pt notified and order mailed to her, pt states understanding. Karine Altamirano RN documented in this encounter Plan of Treatment Not on file documented as of this encounter Results * (ABNORMAL) CBC WITH DIFFERENTIAL (04/11/2018) Blood Gómez Patel MD HEMATOLOGY ORDERABLE S EXTERNAL LAB documented in this encounter Visit Diagnoses Diagnosis Leukocytosis, unspecified type- Primary documented in this encounter Care Teams Express Manager Relationship Specialty Start Date End Date Keven Mckenzie MD [address] [place] [address] PCP - General Family Practice 12/27/17 documented as of this encounter
--- OUTSIDE RECORDS SUMMARY | 2024-04-03 10:59 | XMS_ITS | Encounter Summary ---
Author Organization [facility] Address [address] [place] [address] Care Team Providers Care Ballast Inspector Name Role Phone Keven Mckenzie MD Primary Care Provider [phone] Reason for Visit * Reason Comments Follow Up Results Encounter Details Date Type Department Care Team (Late st Contact Info) Description 07/11/2018 9:30 AM CDT Office Visit [facility] Oncology and Hematology [facility] [address] [place] [address] [address] [place] [address] Gómez Patel MD [address] [facility] [address] [place] [address] Leukemoid reaction (Primary Dx); Leukocytosis, unspecified type; Thrombocytosis Social History Tobacco Use Types Packs/Day Years [...] Sign Reading Time Taken Comments Blood Pressure 101/96 07/11/2018 9:01 AM CDT Pulse 94 07/11/2018 9:01 AM CDT Temperature - - Respiratory Rate - - Oxygen Saturation 97% 07/11/2018 9:01 AM CDT Inhaled Oxygen Concentration - - Weight 123.2 kg (271 lb 11.2 oz) 07/11/2018 9:01 AM CDT Height 175.3 cm (5' 9 ) 07/11/2018 9:01 AM CDT Body Mass Index 40.12 07/11/2018 9:01 AM CDT documented in this encounter Progress Notes * Gómez Patel MD - 07/11/2018 10:10 AM CDT HEMATOLOGY / ONCOLOGY PROGRESS NOTE Patient Identification: Name: Alise Penny Age: 33 y.o. Sex: female : 1985 Subjective: HPI This is a 33-year-old obese female who has a complicated clotting [...] She didwell until her recent admission to [facility] on October 13 when she came into the hospital with right-sided weakness and probable diagnosis of TIA. 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 She was treated with heparin and was subsequently discharged on eliquis. Patient came into the office for follow-up visit and labs checked. She has no new complaints. ?? Interval History: Patient continues to smoke. Patient had right toe nail surgery done in May 2018. She completed antibiotic therapy about a month ago. Review of system Constitutional: No fever; no [...] no confusion; no seizures Ext no edema 12 point review of system was reviewed Objective: Vital signs in last 24 hours: As per nursing note Exam: Gen: NAD Lungs: Clear Cardiac: S1 and S2 without murmurs or gallops Abd: Soft, tender, no hepatomegally, no masses Extr: No LE edema Examination as above Scheduled Meds:@MEDSSCHEDULED@ Continuous Infusions:@MEDSINFUSIONS@ Data Review: [facility] Labs from April 18 showed negative lupus anticoagulant, WBC 9.4 hemoglobin 13 platelet 486,000. Lab from July 07 showed WC 12.7 hemoglobin 13.8 platelet 465,000 neutrophils 70% @IMAGEIMP@ Assessment: Plan: Patient Active Problem List [...] attack. She also had non-ST segment elevated CA related to embolism to the LAD. Transesophageal echocardiogram also showed left ventricle thrombosis. Repeat lupus anticoagulant testing came back negative. Based on clinical history. Patient will continue eliquis for long-term duration. She is also on Plavix and aspirin. ?? Leukocytosis. Reactive with elevated C-reactive protein. He labs showed persistent elevated WBC count. This is likely again secondary to recent right great toe surgery and infection. Reactive thrombocytosis. Patient is on aspirin. TOBACCO COUNSELING She was counseled to discontinue tobacco use. ? 07/11/2018 Gómez Patel MD documented in this encounter Plan of Treatment Not on file documented as of this encounter Results * COMPREHENSIVE METABOLIC PANEL (01/06/2019) Blood Gómez Patel MD CHEMISTRY ORDERABLES Performing Organization Address City/State/[facility] Co de Phone Number EXTERNAL LAB * CBC WITH DIFFERENTIAL (01/06/2019) Blood Gómez Patel MD HEMATOLOGY ORDERABLE S EXTERNAL LAB documented in this encounter Visit Diagnoses Diagnosis Leukemoid reaction- Primary Leukocytosis, unspecified type Thrombocytosis Essential thrombocythemia documented in this encounter Care Teams Ballast Inspector Relationship Specialty Start Date End Date Keven Mckenzie MD [address] [place] [address] PCP - General Family Practice 12/27/17 documented as of this encounter
--- OUTSIDE RECORDS SUMMARY | 2024-04-03 10:59 | XMS_ITS | Encounter Summary ---
Author Organization [facility] [employer] [facility] Address [address] [place] [address] Care Team Providers Care Muffle Operator Name Role Phone Keven Mckenzie MD Primary Care Provider [phone] Reason for Visit * Reason Comments Follow Up 6 MTH FU W /LABS Encounter Details Date Type Department Care Team (Late st Contact Info) Description 01/16/2019 3:45 PM CDT Office Visit [facility] Oncology and Hematology - Juan Manuel [address] [facility] [address] [place] [address] Gómez Patel MD [address] [facility] [address] [place] [address] Leukemoid reaction (Primary Dx) Social [...] Sign Reading Time Taken Comments Blood Pressure 112/80 01/16/2019 3:39 PM CDT Pulse 93 01/16/2019 3:39 PM CDT Temperature 36.7 ??C (98.1 ??F) 01/16/2019 3:39 PM CD T Respiratory Rate - - Oxygen Saturation 89% 01/16/2019 3:39 PM CDT Inhaled Oxygen Concentration - - Weight 124 kg (273 lb 4.8 oz) 01/16/2019 3:39 PM CDT Height 175.3 cm (5' 9 ) 01/16/2019 3:39 PM CDT Body Mass Index 40.36 01/16/2019 3:39 PM CDT documented in this encounter Progress Notes * Gómez Patel MD - 01/16/2019 4:19 PM CDT HEMATOLOGY / ONCOLOGY PROGRESS NOTE Patient Identification: Name: Alise Penny Age: 34 y.o. Sex: female : 1985 DIAGNOSIS Hypercoagulable state with history of recurrent thromboembolic event started in 2010. 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 She denies any chest pain shortness of breath. Her weight and appetite remain stable. Denies any bleeding and bruising. She continues to smoke but has cut down to 4 cigarettes a day. Review of system Constitutional: denies fevers, sweats, [...] dizziness Skin: No lumps, bumps or rashes. Objective: Vital signs in last 24 hours: [...] No lymphadenopathy Neuro: No obvious focal deficit [facility] Labs from January 06, 2019 showed WBC 11.8 hemoglobin 15.3 hematocrit 46.9 platelet 385,000 @IMAGEIMP@ Assessment: Plan: Patient Active Problem List Diagnosis Date Noted ??? Thrombocytosis 07/11/2018 ??? Leukemoid reaction 12/27/2017 ??? Lupus anticoagulant with hypercoagulable state 12/27/2017 Hypercoagulable state with recurrent thromboembolic events initially diagnosed in 2010. Patient hada TIA in October 2017 with non-ST segment NC and left ventricle thrombosis. She is currently on Plavix, aspirin and Eliquis. She will stay on lifetime on anti-correlation therapy. She had echocardiogramdone 3 weeks ago showed no evidence of thrombosis by her funeral driver. History of non-ST segment elevated NC. Patient is on aspirin and Plavix. Reactive leukocytosis and thrombocytosis. Patient is on aspirin. This is likely secondary to smoking. Patient has cut down on smoking. I will see her back in 6 months. ? TOBACCO COUNSELING She was counseled to discontinue tobacco use. 01/16/2019 Gómez Patel MD documented in this encounter Plan of Treatment Not on file documented as of this encounter Results * BASIC METABOLIC PANEL (07/18/2019) Blood Gómez Patel MD CHEMISTRY ORDERABLES Performing Organization Address [facility] [[email or web address]] Co de Phone Number NON [facility] * CBC WITH DIFFERENTIAL (07/18/2019) Blood Gómez Patel MD HEMATOLOGY ORDERABLE S Performing Organization Address [facility] [[email or web address]] Co de Phone Number NON [facility] documented in this encounter Visit Diagnoses Diagnosis Leukemoid reaction- Primary documented in this encounter Care Teams Muffle Operator Relationship Specialty Start Date End Date Keven Mckenzie MD [address] [place] [address] PCP - General Family Practice 12/27/17 documented as of this encounter
--- OUTSIDE RECORDS SUMMARY | 2024-04-03 10:59 | XMS_ITS | Encounter Summary ---
Author Organization [facility] Address [address] [place] [address] Care Team Providers Care Tobacco Weigher Name Role Phone Keven Mckenzie MD Primary Care Provider [phone] Reason for Visit * Reason Comments Leukocytosis Encounter Details Date Type Department Care Team (Late st Contact Info) Description 02/17/2023 3:00 PM SECTION REPAIRER Office Visit [facility] Oncology and Hematology - Juan Manuel [address] [facility] [address] [place] [address] Madyson Perez FNP [address] [facility] [address] [place] [address] Leukocytosis, unspecified type (Primary Dx) [...] Sign Reading Time Taken Comments Blood Pressure 139/82 02/17/2023 2:50 PM SECTION REPAIRER Pulse 116 02/17/2023 2:50 PM SECTION REPAIRER Temperature 37.1 ??C (98.8 ??F) 02/17/2023 2:50 PM CS T Respiratory Rate 18 02/17/2023 2:50 PM SECTION REPAIRER Oxygen Saturation 98% 02/17/2023 2:50 PM SECTION REPAIRER Inhaled Oxygen Concentration - - Weight 134 kg (295 lb 6.4 oz) 02/17/2023 2:50 PM SECTION REPAIRER Height 175.3 cm (5' 9 ) 02/17/2023 2:50 PM SECTION REPAIRER Body Mass Index 43.62 02/17/2023 2:50 PM SECTION REPAIRER documented in this encounter Progress Notes * Madyson Perez, TERMITE TREATER HELPER - 02/17/2023 3:46 PM CST Hematology-Oncology Consult Note Requesting Physician Keven Mckenzie MD Primary Care Physician Keven Mckenzie MD Problem List Patient Active Problem List Diagnosis Code Leukemoid reaction D72.823 Lupus anticoagulant with hypercoagulable state D68.62 Thrombocytosis D75.839 Previous Treatment Plavix, Aspirin, Eliquis Measurable Disease ? Reason for Visit Alise Penny is a 38 y.o. female who was referred for consultation for leukocytosis, thrombocytosis,and erythrocytosis History of Present Illness: This is a 38 yr old obese women with a past medical history of strokes, TIAs, HTN, HLD, and hypercoagulable state with recurrent thromboembolic events that was lost to follow up from 2019. Her thromboembolic events dated back to 2010 when she was initially diagnosed to have a stroke and found to have thrombosis in the heart. She was treated with anticoagulation therapy with Coumadin. Her most recent event was in October 2017 when she came into the hospital with right- sided weakness and found to have transient ischemic attack. She also had non-ST segment elevated ID related to embolism to the LAD. Transesophageal echocardiogram also showed left ventricle thrombosis. She was treated with heparinand subsequently discharged home on eliquis along with aspirin. Hypercoagulable workup done in the hospital showed positive lupus anticoagulant. Rest of the workup was negative. Repeat lupus anticoagulant testing negative. Patient continues to smoke 1 pack of cigarettes per day. States she was on We govy and lost 10 lbs and also decreased her craving to smoke, but it not available to her anymore. She denies any recent infections, weight loss/gain, fevers, night sweats, or body aches. Endorses a L swollen neck lymph node, but denies sore throat or any other upper respiratory infections. No other complaints. Past Medical History Past Medical History: Diagnosis Date Depression Hx of blood clots Hyperlipidemia Stroke Surgical History Past Surgical History: Procedure Laterality Date HX SECTION HX HEART CATHETERIZATION Removal of blood clot Medications Current Outpatient Medications Medication Sig Dispense Refill [DISCONTINUED] aspirin (ASPIR-81 ORAL) Aspir-81 rosuvastatin (CRESTOR) 10 mg tablet Take 10 mg by mouth daily. metoprolol succinate (TOPROL XL) 50 mg Extended Release 24 hour tablet Take 100 mg by mouth daily. lisinopril (PRINIVIL) 5 mg tablet lisinopril 5 mg tablet clopidogrel (PLAVIX) 75 mg Tablet clopidogrel 75 mg tablet Take 1 tablet every day by oral route. aspirin (ASPIR-81 ORAL) Aspir-81 apixaban (ELIQUIS) 5 mg tablet Eliquis 5 mg tablet Take 1 tablet twice a day by oral route. No current facility-administered medications for this visit. Allergies Allergies Allergen Reactions Lamotrigine Hives Immunizations: There is no immunization history on file for this patient. Family History Family History Problem Relation Name Age of Onset Healthy Father Heart Disease Mother Diabetes Mother Breast Cancer Mother Ovarian Cancer Mother Uterine Cancer Mother Healthy Brother SLE Sister No Known Problems Daughter Social History Social History Tobacco Use Smoking status: Every Day Packs/day: 1 Types: Cigarettes Smokeless tobacco: Never Substance Use Topics Alcohol use: Yes Comment: socially TOBACCO COUNSELING She was counseled to discontinue tobacco/nicotine use. [...] Positive for adenopathy. Does not bruise/bleed easily. Physical Exam Constitutional: General: She is awake. Appearance: Normal [...] motion. Lymphadenopathy: Head: Left side of head: Submandibular adenopathy present. Skin: General: Skin is warm and dry. Neurological: General: No focal deficit present. Mental Status: She is alert and oriented to person, place, and time. ? Labs 01/06/19 WBC 11.8 hemoglobin 15.3 hematocrit 46.9 platelet 385,000 07/18/2019 WBC 10 hemoglobin 15.8 hematocrit 49.2 platelet 381,000 creatinine 1.0 01/15/23 WBC 11.9, hemoglobin 15.6, hematocrit 48.2, plts 376,000 Assessment / Plan: This is a 38 yr old obese women with a past medical history of strokes, TIAs, HTN, HLD, and hypercoagulable state with recurrent thromboembolic events that was lost to follow up from 2019. Her thromboembolic events dated back to 2010 when she was initially diagnosed to have a stroke and found to have thrombosis in the heart. She was treated with anticoagulation therapy with Coumadin. Her most recent event was in October 2017 when she came into the hospital with right- sided weakness and found to have transient ischemic attack. She also had non-ST segment elevated ID related to embolism to the LAD. Transesophageal echocardiogram also showed left ventricle thrombosis. She was treated with heparinand subsequently discharged home on eliquis along with aspirin. Hypercoagulable workup done in the hospital showed positive lupus anticoagulant. Rest of the workup was negative. Repeat lupus anticoagulant testing negative. Patient continues to smoke 1 pack of cigarettes per day. States she was on We govy and lost 10 lbs and also decreased her craving to smoke, but it not available to her anymore. She denies any recent infections, weight loss/gain, fevers, night sweats, or body aches. Endorses a L swollen neck lymph node, but denies sore throat or any other upper respiratory infections. Hypercoagulable state with recurrent thromboembolic events: Continue aspirin, plavix, and eliquis Should be on anticoagulant therapy lifelong History of non-ST segment elevated ID: Patient is on aspirin, Plavix, Eliquis Leukocytosis with lymphadenopathy: Persistent leukocytosis WBC 11.9; I I will repeat CBC, CRP, ESR, and flow cytometry for leukemia/lymphoma Ordered L sided US of neck d/t swollen submandibular lymph node on exam Erythrocytosis: Elevated HCT 48.2; likely secondary to smoking and obesity; encouraged smoking cessation, weight loss, diet, and exercise Recommend continuing aspirin, plavix, and eliquis Will determine if phlebotomy is needed if Hct >50 Will repeat EPO level Thrombocytosis: Likely reactive due to smoking and obesity, encouraged smoking cessation and weight loss Will repeat iron studies, ferritin, Continue aspirin, eliquis, and plavix HTN: Patient is on lisinopril, metoprolol HLD: Patient is on rosuvastatin DENAE Corrales-Ramonita, 02/17/2023 3:46 PM Hematology Oncology Nurse Practitioner [facility] ? Total time spent 60 minutes, two third of the total time spent counseling patient [id number]. This patient's plan of care has been reviewed and approved by Dr. Gómez Patel. If you have any questions regarding this hematology or oncology evaluation, feel free to contact us for further assistance. Thank you for allowing us to be a part of this patient's care. CC: Keven Mckenzie MD ION REPAIRER documented in this encounter Plan of Treatment Scheduled Orders Name Type Priority Associated Diagnoses Orde r Schedule COMPREHENSIVE METABOLIC PANEL Lab Routine Leukocytosis, unspecified type Expected: 02/17/2023, Expires: 02/18/2024 CBC WITH DIFFERENTIAL Lab Routine Leukocytosis, unspecified type Expected: 02/17/2023, Expires: 02/18/2024 C-REACTIVE PROTEIN Lab Routine Leukocytosis, unspecified type Expected: 02/17/2023, Expires: 02/18/2024 SEDIMENTATION RATE Lab Routine Leukocytosis, unspecified type Expected: 02/17/2023, Expires: 02/18/2024 IRON, TIBC, AND PERCENT SATURATION Lab Routine Leukocytosis, unspecified type Expected: 02/17/2023, Expires: 02/18/2024 FERRITIN Lab Routine Leukocytosis, unspecified type Expected: 02/17/2023, Expires: 02/18/2024 ERYTHROPOIETIN LEVEL Lab Routine Leukocytosis, unspecified type Expected: 02/17/2023, Expires: 02/17/2024 documented as of this encounter Visit Diagnoses Diagnosis Leukocytosis, unspecified type- Primary documented in this encounter Care Teams Tobacco Weigher Relationship Specialty Start Date End Date Keven Mckenzie MD [address] [place] [address] PCP - General Family Practice 12/27/17 documented as of this encounter
--- OUTSIDE RECORDS SUMMARY | 2024-04-03 10:59 | XMS_ITS | Encounter Summary ---
Author Organization [facility] Address [address] [place] [address] Care Team Providers Care Knitter Machine Name Role Phone Keven Mckenzie MD Primary Care Provider [phone] Encounter Details Date Type Department Care Team (Late st Contact Info) Description 02/18/2023 Orders Only [facility] Oncology and Hematology - Juan Manuel [address] [facility] [address] [place] [address] Gómez Patel MD [address] [facility] [address] [place] [address] Claustrophobia (Primary Dx) Social History Tobacco Use Types [...] Procedure Name Priority Date/Time Associated Diagnosis Comments CT HEAD W + ST NECK W Routine 02/17/2023 12:51 PM WINDOWS SYSTEMS ADMINISTRATOR documented in this encounter Results * CT HEAD W + ST NECK W (02/17/2023 12:51 PM WINDOWS SYSTEMS ADMINISTRATOR) Anatomical Region Laterality Modality Head Other Gómez Patel MD CT ORDERABLES documented in this encounter Visit Diagnoses Diagnosis Claustrophobia- Primary Other isolated or specific phobias documented in this encounter Care Teams Knitter Machine Relationship Specialty Start Date End Date Keven Mckenzie MD [address] [place] [address] PCP - General Family Practice 12/27/17 documented as of this encounter
--- OUTSIDE RECORDS SUMMARY | 2024-04-03 10:59 | XMS_ITS | Encounter Summary ---
Author Organization [facility] Address [address] [place] [address] Care Team Providers Care Trimmer Helper Name Role Phone Keven Mckenzie MD Primary Care Provider [phone] Reason for Visit * Reason Comments Establish Care dvt Encounter Details Date Type Department Care Team (Late st Contact Info) Description 12/27/2017 1:00 PM CDT Office Visit [facility] [place] Oncology and Hematology - Juan Manuel [address] [facility] [address] [place] [address] Gómez Patel MD [address] [facility] [address] [place] [address] Leukemoid reaction; Lupus anticoagulant with hypercoagulable state Social History [...] Sign Reading Time Taken Comments Blood Pressure 130/72 12/27/2017 1:14 PM CDT Pulse 97 12/27/2017 1:14 PM CDT Temperature 36.8 ??C (98.2 ??F) 12/27/2017 1:14 PM CD T Respiratory Rate - - Oxygen Saturation 98% 12/27/2017 1:14 PM CDT Inhaled Oxygen Concentration - - Weight 117.5 kg (259 lb) 12/27/2017 1:14 PM CDT Height 175.3 cm (5' 9 ) 12/27/2017 1:14 PM CDT Body Mass Index 38.25 12/27/2017 1:14 PM CDT documented in this encounter Progress Notes * Gómez Patel MD - 12/27/2017 3:01 PM CDT Hematology-oncology consult Note Requesting Physician Keven Mckenzie MD Primary Care Physician Keven Mckenzie MD Problem list Patient Active Problem List Diagnosis Code ??? Leukemoid reaction D72.823 ??? Lupus anticoagulant with hypercoagulable state D68.62 Previous TREATMENT ? Measurable Disease ? Reason for Visit Alise Penny is a 32 y.o. female who was referred for consultation for Hypercoagulable state. History of present illness This is a 32-year-old obese female who [...] She didwell until her recent admission to [facility] on October 13 when she came into the hospital with right-sided weakness and probable diagnosis of TIA. 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 She was treated with heparin and was subsequently discharged on eliquis. Hypercoagulable workup was ordered in the hospital. Today she is feeling much better without any weakness any speech changes. Past Medical History Past Medical History: Diagnosis Date ??? Hx of blood clots ??? Hyperlipidemia ??? Stroke Leukocytosis Psoriasis Non-ST segment elevated MT Surgical History Past Surgical History: Procedure Laterality Date ??? HX SECTION Medications Current Outpatient Prescriptions Medication Sig Dispense Refill ??? clopidogrel (PLAVIX) 75 mg Tablet clopidogrel 75 mg tablet Take 1 tablet every day by oral route. ??? aspirin (ASPIR-81 ORAL) Aspir-81 ??? apixaban (ELIQUIS) 5 mg tablet Eliquis 5 mg tablet Take 1 tablet twice a day by oral route. ??? metoprolol tartrate (LOPRESSOR) 25 mg tablet metoprolol tartrate 25 mg tablet ??? ergocalciferol (VITAMIN D2) 50,000 unit capsule Vitamin D2 50,000 unit capsule ??? pitavastatin calcium (LIVALO) 2 mg Tablet Livalo 2 mg tablet Take 1 tablet every day by oral route in the evening. ??? [DISCONTINUED] atorvastatin (LIPITOR) 40 mg tablet atorvastatin 40 mg tablet Take 1 tablet every day by oral route at bedtime. No current facility-administered medications for this visit. Allergies No Known Allergies Immunizations: There is no immunization history on file for this patient. Family History Family History Problem Relation Age of Onset ??? Healthy Father ??? Heart Disease Mother ??? Diabetes Mother ??? Breast Cancer Mother ??? Ovarian Cancer Mother ??? Uterine Cancer Mother ??? Healthy Brother ??? Healthy Sister Social History Social History Substance Use Topics ??? Smoking status: Current Some Day Smoker Packs/day: 0.50 Types: Cigarettes ??? Smokeless tobacco: Never Used ??? Alcohol use No Review of Systems Constitutional: No fever; no night sweats; no anorexia; no weight loss; no fatique NEENT: No headache; no change in vision; no change in hearing; no sore throat; no dysphagia Respiratory: No shortness of breath; no pleuritic chest pain; no cough; no hemoptysis Cardiac: No cardiac-like chest pain; no palpitations; no orthopnea; no PND; no SMITH Breasts: No tenderness; no masses GI: No abdominal pain; no nausea; no vomiting; no diarrhea; no hematochezia; no melena : No dysuria; no frequency; no hesitancy; no hematuria ARMOR OFFICER: Musculosketetal: no bone pain; no arthralgia; no joint swelling; no myalgia; Skin: no pruritis; no rash; no petechiae; no ecchymoses Endocrine: no polydipsia; no polyuria; no unusual weight gain Neuro: No headache; no change in vision; no sensory changes; no muscle weakness; no confusion; no seizures Psych: no anxiety; no depression; Physical Exam Vitals: As per nursing note Constitutional: Well developed, well nourished, no acute distress, non-toxic appearance Teeth and gum. No signs of infection or swelling. Eyes: PERRL, conjunctiva normal HEENT: Atraumatic, external ears normal, nose normal, oropharynx moist, no pharyngeal exudates. no sinus tenderness Neck- normal range of motion, no tenderness, supple Respiratory: No respiratory distress, normal breath sounds, no rales, no wheezing Cardiovascular: Normal rate, normal rhythm, no murmurs, no gallops, no rubs GI: Soft, nondistended, normal bowel sounds, nontender, no splenomegaly, no hepatomegaly, no mass, no rebound, no guarding : No costovertebral angle tenderness Musculoskeletal: No edema, no tenderness, no deformities. Back- no tenderness Integument: Well hydrated, no rash, Digits and nails inspection normal Lymphatic: No lymphadenopathy noted Neurologic: Alert & oriented x 3, CN 2-12 normal, normal motor function, normal sensory function, no focal deficits noted Psychiatric: Speech and behavior appropriate ? labs No results found for this or any previous visit (from the past 24 hour(s)). Pathology ? Imaging & Other Studies Performance Status? Assessment / Plan: Hypercoagulable state with recurrent thromboembolic events dated [...] attack. She also had non-ST segment elevated MT related to embolism to the LAD. Transesophageal echocardiogram also showed left ventricle thrombosis. She was treated with heparin and subsequently discharged home on eliquis along with aspirin. Hypercoagulable workup done in the hospital showed positive lupus anticoagulant. Rest of the workup was negative. Given her previous clotting events and positive lupus anticoagulant testing Iwould recommend lifelong anticoagulant therapy. I will repeat lupus anticoagulant testing in 3 months. Leukocytosis. I have reviewed the labs done in the hospital. I will repeat CBC along with C-reactive protein and sedimentation rate. I have answered all the questions to patient's satisfaction. Thank you very much for allowing me to participate in Alise Penny's evaluation and management. Please feel free to contact if I can be of any further assistance in your patient???s care requiring hematology or oncology evaluation. Sincerely, ? ? Gómez Patel M.D. cell ? ? Gómez Patel MD ,12/27/2017 3:01 PM ? Total time spent 80 minutes, two third of the total time spent counseling patient [id number]. CC:Keven Mckenzie MD? documented in this encounter Plan of Treatment Scheduled Orders Name Type Priority Associated Diagnoses Orde r Schedule LUPUS ANTICOAGULANT W/REFLEX CONFIRMATION Lab Routine Lupus anticoagulant with hypercoagulable state Expected: 03/28/2018, Expires: 12/27/2018 documented as of this encounter Procedures Procedure Name Priority Date/Time Associated Diagnosis Comments SEDIMENTATION RATE Routine 12/28/2017 Leukemoid reaction C-REACTIVE PROTEIN Routine 12/28/2017 Leukemoid reaction CBC WITH DIFFERENTIAL Routine 12/27/2017 Leukemoid reaction documented in this encounter Results * SEDIMENTATION RATE (12/28/2017) Blood Gómez Patel MD HEMATOLOGY ORDERABLE S Performing Organization Address [facility] Co de Phone Number EXTERNAL LAB * (ABNORMAL) C-REACTIVE PROTEIN (12/28/2017) Blood Gómez Patel MD CHEMISTRY ORDERABLES Performing Organization Address [facility] Co de Phone Number EXTERNAL LAB * CBC WITH DIFFERENTIAL (12/27/2017) Blood Gómez Patel MD HEMATOLOGY ORDERABLE S Performing Organization Address [facility] Co de Phone Number EXTERNAL LAB documented in this encounter Visit Diagnoses Diagnosis Leukemoid reaction Lupus anticoagulant with hypercoagulable state Primary hypercoagulable state documented in this encounter Care Teams Trimmer Helper Relationship Specialty Start Date End Date Keven Mckenzie MD [address] [place] [address] PCP - General Family Practice 12/27/17 documented as of this encounter
--- OUTSIDE RECORDS SUMMARY | 2024-04-03 10:59 | XMS_ITS | Encounter Summary ---
Author Organization [facility] [facility] Address [address] [place] [address] Care Team Providers Care Hydraulic Dredge Operator Name Role Phone Keven Mckenzie MD Primary Care Provider [phone] Encounter Details Date Type Department Care Team (Late st Contact Info) Description 02/22/2023 Orders Only [facility] Oncology and Hematology - Juan Manuel [address] [facility] [address] [place] [address] Gómez Patel MD [address] [facility] [address] [place] [address] Social History Tobacco Use Types [...] Procedure Name Priority Date/Time Associated Diagnosis Comments CHG BLOOD SMEAR PATH REVIEW Routine 02/19/2023 10:36 AM STEAK SAUCE MAKER CHG BLOOD SMEAR PATH REVIEW Routine 02/18/2023 2:10 PM STEAK SAUCE MAKER ERYTHROPOIETIN LEVEL Routine 02/17/2023 10:33 AM STEAK SAUCE MAKER documented in this encounter Results * CHG BLOOD SMEAR PATH REVIEW (02/19/2023 10:36 AM STEAK SAUCE MAKER) Gómez Patel MD, CHG - LABORATORY * CHG BLOOD SMEAR PATH REVIEW (02/18/2023 2:10 PM STEAK SAUCE MAKER) Gómez M Amanda MD CHG - LABORATORY * ERYTHROPOIETIN LEVEL (02/17/2023 10:33 AM STEAK SAUCE MAKER) Blood Gómez Patel MD CHEMISTRY ORDERABLES documented in this encounter Visit Diagnoses Not on filedocumented in this encounter Care Teams Hydraulic Dredge Operator Relationship Specialty Start Date End Date Keven Mckenzie MD [address] [place] [address] PCP - General Family Practice 12/27/17 documented as of this encounter
--- OUTSIDE RECORDS SUMMARY | 2024-04-03 10:59 | XMS_ITS | Encounter Summary ---
Author Organization [facility] Address [address] [place] [address] Care Team Providers Care Facility Supervisor Name Role Phone Keven Mckenzie MD Primary Care Provider [phone] Encounter Details Date Type Department Care Team (Late st Contact Info) Description 07/04/2018 Orders Only [facility] Oncology and Hematology - Juan Manuel [address] [facility] [address] [place] [address] Gómez Patel MD [address] [facility] [address] [place] [address] Leukemoid reaction Social History Tobacco [...] Associated Diagnosis Comments CBC WITH DIFFERENTIAL Routine 07/04/2018 Leukemoid reaction documented in this encounter Results * (ABNORMAL) CBC WITH DIFFERENTIAL (07/04/2018) Blood Gómez Patel MD HEMATOLOGY ORDERABLE S EXTERNAL LAB documented in this encounter Visit Diagnoses Diagnosis Leukemoid reaction documented in this encounter Care Teams Facility Supervisor Relationship Specialty Start Date End Date Keven Mckenzie MD [address] [place] [address] PCP - General Family Practice 12/27/17 documented as of this encounter
--- OUTSIDE RECORDS SUMMARY | 2024-04-03 10:59 | XMS_ITS | Encounter Summary ---
Author Organization [facility] [employer] [facility] Address [address] [place] [address] Care Team Providers Care Tuckpointer Name Role Phone Keven Mckenzie MD Primary Care Provider [phone] Encounter Details Date Type Department Care Team (Late st Contact Info) Description 07/11/2019 Orders Only [facility] Oncology and Hematology - Juan Manuel [address] [facility] [address] [place] [address] Gómez Patel MD [address] [facility] [address] [place] [address] Leukemoid reaction Social History Tobacco [...] CBC WITH DIFFERENTIAL Routine 07/18/2019 Leukemoid reaction BASIC METABOLIC PANEL Routine 07/18/2019 Leukemoid reaction documented in this encounter Results * CBC WITH DIFFERENTIAL (07/18/2019) Blood Gómez Patel MD HEMATOLOGY ORDERABLE S NON [facility] * BASIC METABOLIC PANEL (07/18/2019) Blood Gómez Patel MD CHEMISTRY ORDERABLES NON [facility] LAB documented in this encounter Visit Diagnoses Diagnosis Leukemoid reaction documented in this encounter Care Teams Tuckpointer Relationship Specialty Start Date End Date Keven Mckenzie MD [address] [place] [address] PCP - General Family Practice 12/27/17 documented as of this encounter
--- OUTSIDE RECORDS SUMMARY | 2024-04-03 10:59 | XMS_ITS | Encounter Summary ---
Author Organization [facility] Address [address] [place] [address] Care Team Providers Care Teletypesetter Monitor Name Role Phone Keven Mckenzie MD Primary Care Provider [phone] Encounter Details Date Type Department Care Team (Late st Contact Info) Description 01/04/2019 Orders Only [facility] Oncology and Hematology - Juan Manuel [address] [facility] [address] [place] [address] Gómez Patel MD [address] [facility] [address] [place] [address] Leukemoid reaction Social History Tobacco [...] Associated Diagnosis Comments CBC WITH DIFFERENTIAL Routine 01/06/2019 Leukemoid reaction COMPREHENSIVE METABOLIC PANEL Routine 01/06/2019 Leukemoid reaction documented in this encounter Results * CBC WITH DIFFERENTIAL (01/06/2019) Blood Gómez Patel MD HEMATOLOGY ORDERABLE S EXTERNAL LAB * COMPREHENSIVE METABOLIC PANEL (01/06/2019) Blood Gómez Patel MD CHEMISTRY ORDERABLES EXTERNAL LAB documented in this encounter Visit Diagnoses Diagnosis Leukemoid reaction documented in this encounter Care Teams Teletypesetter Monitor Relationship Specialty Start Date End Date Keven Mckenzie MD [address] [place] [address] PCP - General Family Practice 12/27/17 documented as of this encounter
--- OUTSIDE RECORDS SUMMARY | 2024-04-03 10:59 | XMS_ITS | Encounter Summary ---
Author Organization [facility] Address [address] [place] [address] Care Team Providers Care Meeting Facilitator Name Role Phone Keven Mckenzie MD Primary Care Provider [phone] Encounter Details Date Type Department Care Team (Late st Contact Info) Description 04/20/2018 Orders Only [facility] Oncology and Hematology - Juan Manuel [address] [place] [address] [address] [place] [address] Gómez Patel MD [address] [facility] [address] [place] [address] Social History Tobacco Use Types [...] Procedure Name Priority Date/Time Associated Diagnosis Comments LUPUS ANTICOAGULANT DRVVT Routine 04/18/2018 documented in this encounter Results * LUPUS ANTICOAGULANT DRVVT (04/18/2018) Blood Gómez Patel MD HEMATOLOGY ORDERABLE S [facility] documented in this encounter Visit Diagnoses Not on filedocumented in this encounter Care Teams Meeting Facilitator Relationship Specialty Start Date End Date Keven Mckenzie MD [address] [place] [address] PCP - General Family Practice 12/27/17 documented as of this encounter
--- OUTSIDE RECORDS SUMMARY | 2024-04-03 10:59 | XMS_ITS | Encounter Summary ---
Author Organization [facility] Address [address] [place] [address] Care Team Providers Care Material Crew Supervisor Name Role Phone Keven Mckenzie MD Primary Care Provider [phone] Encounter Details Date Type Department Care Team (Late st Contact Info) Description 04/18/2018 Orders Only [facility] Oncology and Hematology - Juan Manuel [address] [facility] [address] [place] [address] Gómez Patel MD [address] [facility] [address] [place] [address] Social History Tobacco Use Types [...] Associated Diagnosis Comments CBC WITH DIFFERENTIAL Routine 04/18/2018 documented in this encounter Results * CBC WITH DIFFERENTIAL (04/18/2018) Blood Gómez Patel MD HEMATOLOGY ORDERABLE S [facility] documented in this encounter Visit Diagnoses Not on filedocumented in this encounter Care Teams Material Crew Supervisor Relationship Specialty Start Date End Date Keven Mckenzie MD [address] [place] [address] PCP - General Family Practice 12/27/17 documented as of this encounter
--- OUTSIDE RECORDS SUMMARY | 2024-04-03 10:59 | XMS_ITS | Encounter Summary ---
Author Organization [facility] [employer] [facility] Address [address] [place] [address] Care Team Providers Care Financial Aid Officer Name Role Phone Keven Mckenzie MD Primary Care Provider [phone] Reason for Referral * Eval and Treat (Routine) - Closed Specialty Diagnoses / Procedures Referred By Dahiana staples Referred To Contact Dermatology Diagnoses Leukemoid reaction Gómez Patel MD [address] [facility] [address] [place] [address] Pankaj Peña MD [address] [place] [id number] Referral ID Status Reason Start Date Expiration Date Visits Requested Visits Authorized [id number] Closed Ordering Department To Schedule 01/17/2019 01/18/2020 1 1 Reason for Visit * Reason Onset Date Comments Needs Orders Written 01/17/2019 Encounter Details Date Type Department Care Team (Late st Contact Info) Description 01/17/[address] [facility] Oncology and Hematology - Juan Manuel [address] [place] [address] [facility] [address] [place] [address] Gómez Patel MD [address] [facility] [address] [place] [address] Needs Orders Written Social History [...] encounter Miscellaneous Notes * Telephone Encounter - Emma Zuniga - 01/17/2019 1:33 PM CDT Consult to dermatology for psoriasis. documented in this encounter Plan of Treatment Scheduled Referrals Name Type Priority Associated Diagnoses Order Schedule AMB REFERRAL TO DERMATOLOGY Outpatient Referral Routine Leukemoid reaction Ordered: 01/17/2019 documented as of this encounter Visit Diagnoses Diagnosis Leukemoid reaction- Primary documented in this encounter Care Teams Financial Aid Officer Relationship Specialty Start Date End Date Keven Mckenzie MD [address] [place] [address] PCP - General Family Practice 12/27/17 documented as of this encounter
--- OUTSIDE RECORDS SUMMARY | 2024-04-03 10:59 | XMS_ITS | Encounter Summary ---
Author Organization [facility] [employer] [facility] Address [address] [place] [address] Care Team Providers Care Sanitary Aide Name Role Phone Keven Mckenzie MD Primary Care Provider [phone] Encounter Details Date Type Department Care Team (Late st Contact Info) Description 02/19/2023 Orders Only [facility] Oncology and Hematology - Juan Manuel [address] [place] [address] [address] [place] [address] Gómez Patel MD [address] [facility] [address] [place] [address] Leukocytosis, unspecified type (Primary Dx) Social History [...] Primary documented in this encounter Care Teams Sanitary Aide Relationship Specialty Start Date End Date Keven Mckenzie MD [address] [place] [address] PCP - General Family Practice 12/27/17 documented as of this encounter
== END 2024-03-27 07:34 | disposition home or self-care (01) ==
PROVIDERS: PCP Physician Assistant Medical; Referring Provider Physician Assistant Medical
DX: Z00.00 Encounter for general adult medical examination without abnormal findings (principal); I11.0 Hypertensive heart disease with heart failure; I50.9 Heart failure, unspecified; R78.5 Finding of other psychotropic drug in blood; E78.5 Hyperlipidemia, unspecified; E66.3 Overweight; E11.9 Type 2 diabetes mellitus without complications; E66.09 Other obesity due to excess calories
CPT/HCPCS: 36415; 80053; 80061; 83036; 84443; 85025

== ENCOUNTER 2024-04-05 17:14 | Emergency (ER) | payer BC, SELFPAY ==
--- NOTE | ~2024-04-05 | CT_ITS ---
EXAMINATION: CT abdomen pelvis w con DATE: 04/05/2024 20:12 INDICATION: LLQ pain -> rectum TECHNIQUE: Computed tomography (CT) of the abdomen and pelvis was performed with 100 mL Omnipaque-350 intravenous contrast. Automated exposure control and iterative reconstruction technique were employe d. The dose-length product was 1514.53 mGy-cm. COMPARISON: 12/01/2020. FINDINGS: Lower thorax: Unremarkable Liver: Normal. Biliary/Gallbladder: Gallbladder is normal. No bile duct dilation. Pancreas: No mass or duct dilation. Spleen: Normal. Adrenals: Dystrophic right adrenal calcification. Kidneys: No suspicious mass, obstructing stone, or hydronephrosis. Bilateral scarring. GI tract: Mild distal esophageal and gastric wall edema No small or large bowel dilation. Normal appe ndix. Mesentery/Peritoneum: No ascites, mass, or free air. Retroperitoneum: No mass. Pelvis: 10.8 cm right ovarian mass which contains calcific, fat, and fluid densities. 6.8 cm exophyti c and heterogeneous fundal fibroid projecting into the left adnexa. 4.5 cm intramural fibroid in the uterine body, with brisk but patchy enhancement. Empty urinary bladder. Neither ovary is clearly visu alized. Soft Tissues: Soft tissues and body wall unremarkable. Bones: No acute osseous finding. IMPRESSION: 10.8 cm right ovarian dermoid. Multiple uterine fibroids, measuring up to 6.8 cm. Variable and heterogeneous enhancement may indicat e necrosis in either or both. Bilateral ovaries not well visualized. Consider gynecology referral and pelvic MR. Reviewed, dictated and finalized at location K. ICAL QUALITY ASSURANCE ASSOCIATE IMPRESSION: 10.8 cm right ovarian dermoid. Multiple uterine fibroids, measuring up to 6.8 cm. Variable and heterogeneous e nhancement may indicate necrosis in either or both. Bilateral ovaries not well visualized. Consider gynecology referral and pelvic MR.
[2024-04-05 17:25] VITALS: BP 125/98; PULSE 69; RESP 18; TEMP 36.7; O2SAT 99
[2024-04-05 19:33] LABS: BEDSIDEPREGUCG Negative (Negative)
[2024-04-05 19:36] LABS: Basophils Absolute Auto 0.1 K/mm3 (0.0-0.1); Basophils Percent Auto 0.8 % (0.2-1.2); Eosinophils Absolute Auto 0.4 K/mm3 (0-0.3); Hematocrit 45.9 % (37.0-47.0); Hemoglobin 15.1 g/dL (12.0-15.0); Immature Granulocyte Absolute 0.04 K/mm3 (0.00-0.031); Immature Granulocyte Percent A 0.3 % (0-0.5); Lymphocytes Absolute Auto 2.51 K/mm3 (0.9-3.2); Lymphocytes Percent Auto 17.9 % (18.3-44.2); Mean Corpuscular HGB Conc 32.9 g/dl (32-36); Mean Corpuscular Hemoglobin 30.8 pg (26-34); Mean Corpuscular Volume 93.7 fl (80-100); Mean Platelet Volume 8.8 fl (7.4-10.4); Monocytes Absolute Auto 0.6 K/mm3 (0.1-0.6); Monocytes Percent Auto 4.1 % (2.6-8.5); Neutrophils Absolute Auto 10.4 K/mm3 (1.3-6.7); Neutrophils Percent Auto 73.9 % (45.5-73.1); Platelet Count Result 463 k/mm3 (150-375); Red Cell Distribution Width 13.2 % (11.5-14.5)
[2024-04-05 19:46] LABS: Add Urine Microscopic? YES; Appearance Urine Clear (Clear); Bacteria Urine 1+ /hpf; Bilirubin Urine Negative (Negative); Blood Urine Negative (Negative); Color Urine Yellow (Yellow); Glucose Urine UA Negative (Negative); Ketones Urine Negative (Negative); Leukocyte Esterase Ur Negative LEU/UL (Negative); Nitrate Urine Negative (Negative); Non Pathogenic Casts 0-2; Protein Urine Trace mg/dL (Negative); RBC Urine 0-2 /hpf (0-2); Specific Grav Ur 1.021 (1.001-1.035); Squamous Epithelial Cell Urine Few /hpf (Few); Urobilinogen Urine 0.2 mg/dL (<2.0); pH Urine 5.5 (5.0-9.0)
[2024-04-05] MEDS: SODIUM CHLORIDE 0.9% IV 1,000 ML 999 ML IV CONT (19:47)
[2024-04-05] MEDS: HYDROmorphone HCL INJ (*CRX) 1 MG/ML SYR 0.5 MG IV PUSH (19:49)
[2024-04-05 19:50] VITALS: BP 122/89; PULSE 87; RESP 14; TEMP 36.7; O2SAT 100
[2024-04-05 19:54] LABS: Alanine Aminotransferase 27 U/L (6-35); Albumin Level 4.7 g/dL (3.5-5.1); Alkaline Phosphatase 129 U/L (38-126); Anion Gap 7 mmol/L (4-12); Aspartate Amino Transferase 25 U/L (14-36); Bilirubin,Total 0.3 mg/dL (0.2-1.3); Blood Urea Nitrogen 11 mg/dL (7-17); Calcium 9.5 mg/dL (8.4-10.2); Carbon Dioxide 25 mmol/L (22-30); Chloride 108 mmol/L (98-107); Estimated CRCL calculation 89 ml/min; Estimated Glomerular Filt Rate 56; Glucose 92 mg/dL (65-110); Lipase 398 U/L (23-300); Potassium 4.1 mmol/L (3.4-5.0); Sodium 140 mmol/L (137-145)
--- NOTE | 2024-04-05 20:39 | ED.GENADULT ---
HPI - General Adult General Chief complaint: Abdominal Pain Stated complaint: LLQ pain Time Seen by Provider: 04/05/24 19:06 History of Present Illness HPI narrative: Female with history of uterine fibroids presenting with left lower quadrant abdominal pain radiating to her rectum. Symptoms ongoing for 1 day. Stabbing pain comes and goes. She denies fevers chills chest pain difficulty breathing, dysuria or urinary symptoms, vaginal discharge or irritation. No nausea vomiting or diarrhea. Last bowel was earlier today and was normal. Related Data Home Medications ?Medication ?Instructions ?Recorded ?Confirmed ?Last Taken ?Type apixaban 5 mg tablet (Eliquis) 5 mg PO BID 04/10/19 02/14/24 Unknown History aspirin 81 mg tablet,delayed 81 mg PO DAILY 12/01/20 02/14/24 Unknown History release clopidogrel 75 mg tablet 75 mg PO DAILY 12/01/20 02/14/24 Unknown History lisinopril 5 mg tablet 5 mg PO DAILY 12/01/20 02/14/24 Unknown History rosuvastatin 10 mg tablet 10 mg PO DAILY 12/01/20 02/14/24 Unknown History metoprolol succinate 100 mg 100 mg PO DAILY 09/11/22 02/14/24 Unknown History tablet,extended release 24 hr Allergies Allergy/AdvReac Type Severity Reaction Status Date / Time lamotrigine (From Lamictal) Allergy Hives Verified 02/14/24 11:12 [facility] Past Medical History Medical History Miscarriage History of Stroke History of blood clots BMI greater than 40 Bimalleolar fracture of left ankle TIA (transient ischemic attack) x4 Breast abscess Myocardial infarction Surgical History Surgical History H/O section Family History Family History Mother Diabetes mellitus Hypertension Family history of malignant neoplasm of uterus Family history of malignant neoplasm of breast in first degree relative Father Cerebrovascular accident Sibling , suicide No problems noted. Sibling Lupus Other Alcoholism Arthritis Asthma Breast cancer Depression HLD (hyperlipidemia) Heart disease Neuropathy Social History Social History Smoking packs per day: 1 Smoking cigarettes per day: 20.0 Years smoked: 14 Smoking pack-years: 14.00 Smoking status: Current every day smoker Tobacco type: cigarettes Second hand tobacco smoke exposure: Yes Alcohol intake: never Substance use: never Substance use type: does not use Lack of Transportation: No Lack of Food: Never True Current Housing: I Have Housing Concerned About Future Housing: No Difficulty Paying Gas/Electric Bills: No Difficulty Paying for Meds: No Currently Unemployed: No Education: High School Diploma/GED Difficulty w/ Childcare or Family Care: No Living arrangements: with family Occupation/Education: other 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 Head: atraumatic. EYES: EOMI, NOSE: Atraumatic NECK: Trachea midline RESPIRATORY: No increased rate of breathing CT\AB CARDIOVASCULAR: RRR, ABDOMINAL: Tenderness to palpation left lower quadrant/suprapubic area, no guarding MUSCULOSKELETAl: No obvious deformities NEURO: Alert. Moving 4/4 extremities SKIN:: Warm, dry. Normal color PSYCHIATRIC: Normal affect Course Vital Signs Vital signs: Vital Signs Temperature 98.0 F 04/05/24 17:25 Pulse Rate 69 04/05/24 17:25 Respiratory Rate 18 04/05/24 17:25 Blood Pressure 125/98 H 04/05/24 17:25 Pulse Oximetry 99 04/05/24 17:25 Oxygen Delivery Room Air 04/05/24 17:25 Temperature 98.0 F 04/05/24 19:50 Pulse Rate 87 04/05/24 19:50 Respiratory Rate 14 04/05/24 19:50 Blood Pressure 122/89 04/05/24 19:50 Pulse Oximetry 100 04/05/24 19:50 Oxygen Delivery Room Air 04/05/24 17:25 Medical Decision Making MDM Narrative Medical decision making narrative: -Course: 39-year-old female presenting with lower abdominal pain. CT showed a large 10.8 cm dermoid cyst as well as a chronic fibroids. White count slightly elevated but typically elevated. Otherwise vital signs are stable and she is well-appearing on exam. Case was discussed with Dr. Hernandez recommended pain control and outpatient follow-up. These were provided the patient follow-up with Dr. Huston clinic -DDX includes but is not limited to: Diverticulitis, colitis, ovarian cyst rupture, large dermoid cyst, uterine fibroids -Independent interpretation of studies: Labs imaging reviewed -Discussion of Management/Consultants:Dr. Hernandez -Interventions:2 L normal saline, Toradol, Dilaudid -Shared decision making / Disposition:Discharged. -RX Motrin Tylenol oxycodone Vital Signs Vital Signs: Vital Signs Temperature 98.0 F 04/05/24 17:25 Pulse Rate 69 04/05/24 17:25 Respiratory Rate 18 04/05/24 17:25 Blood Pressure 125/98 H 04/05/24 17:25 Pulse Oximetry 99 04/05/24 17:25 Oxygen Delivery Room Air 04/05/24 17:25 Temperature 98.0 F 04/05/24 19:50 Pulse Rate 87 04/05/24 19:50 Respiratory Rate 14 04/05/24 19:50 Blood Pressure 122/89 04/05/24 19:50 Pulse Oximetry 100 04/05/24 19:50 Oxygen Delivery Room Air 04/05/24 17:25 Lab Data 04/05/24 19:29 04/05/24 19:29 Labs: Lab Results 04/05/24 04/05/24 Range/Units 19:29 19:31 WBC 14.0 H (4.5-10.0) K/mm3 RBC 4.90 (4.2-5.4) M/mm3 Hgb 15.1 H (12.0-15.0) g/dL Hct 45.9 (37.0-47.0) % MCV 93.7 (80-100) fl MCH 30.8 (26-34) pg MCHC 32.9 (32-36) g/dl RDW 13.2 (11.5-14.5) % Plt Count 463 H (150-375) k/mm3 MPV 8.8 (7.4-10.4) fl Immature Gran % (Auto) 0.3 (0-0.5) % Neut % (Auto) 73.9 H (45.5-73.1) % Lymph % (Auto) 17.9 L (18.3-44.2) % [place] % (Auto) 4.1 (2.6-8.5) % Eos % (Auto) 3.0 (0-4.4) % Baso % (Auto) 0.8 (0.2-1.2) % Lymph # (Auto) 2.51 (0.9-3.2) K/mm3 [place] # (Auto) 0.6 (0.1-0.6) K/mm3 Eos # (Auto) 0.4 H (0-0.3) K/mm3 Baso # (Auto) 0.1 (0.0-0.1) K/mm3 Abs Immat Gran (auto) 0.04 H (0.00-0.031) K/mm3 Absolute Neuts (auto) 10.4 H (1.3-6.7) K/mm3 Absolute Nucleated RBC 0.000 (0.0-0.012) K/mm3 Nucleated RBC % 0.0 (0.0-0.2) % Sodium 140 (137-145) mmol/L Potassium 4.1 (3.4-5.0) mmol/L Chloride 108 H (98-107) mmol/L Carbon Dioxide 25 (22-30) mmol/L Anion Gap 7 (4-12) mmol/L BUN 11 (7-17) mg/dL Creatinine 1.10 H (0.7-1.0) mg/dL Estim Creat Clear Calc 89 ml/min Estimated GFR 56 L (59 - ) Glucose 92 (65-110) mg/dL Calcium 9.5 (8.4-10.2) mg/dL Total Bilirubin 0.3 (0.2-1.3) mg/dL AST 25 (14-36) U/L ALT 27 (6-35) U/L Alkaline Phosphatase 129 H (38-126) U/L Total Protein 8.0 (6.3-8.2) g/dL Albumin 4.7 (3.5-5.1) g/dL Lipase 398 H (23-300) U/L Urine Color Yellow (Yellow) Urine Appearance Clear (Clear) Urine pH 5.5 (5.0-9.0) Ur Specific [place] 1.021 (1.001-1.035) Urine Protein Trace (Negative) mg/dL Urine Glucose (UA) Negative (Negative) mg/dL Urine Ketones Negative (Negative) mg/dL Ur Blood (Man) Negative (Negative) Urine Nitrate Negative (Negative) Urine Bilirubin Negative (Negative) Urine Urobilinogen 0.2 (<2.0) mg/dL Leukocyte Esterase Rfl Negative (Negative) [facility] Urine RBC 0-2 (0-2) /hpf Urine WBC 6-10 H (0-3) /hpf Ur Squamous Epith Cells Few (Few) /hpf Urine Bacteria 1+ H /hpf Urine Casts 0-2 POC Urine HCG, Qual Negative (Negative) Discharge Plan Discharge Clinical Impression: Fibroid, Dermoid cyst Patient Disposition: Home, Self-Care Condition: Stable Instructions: Antibiotic Form, Uterine Fibroids (ED) Additional Instructions: You were seen in the ED for uterine fibroids. Please take Tylenol for pain. Use oxycodone for breakthrough. please follow-up with Dr. Saravia the clinic. Return to ED if you develop fevers severe abdominal pain review develop any new or worsening symptoms. Patient Language: Khmer Prescriptions: New acetaminophen 500 mg capsule 500 mg PO Q6H PRN (Reason: fever) Qty: 90 0RF oxycodone 5 mg tablet 5 mg PO Q4H PRN (Reason: pain) Qty: 20 0RF No Action Eliquis 5 mg tablet 5 mg PO BID metoprolol succinate 100 mg tablet extended release 24 hr 100 mg PO DAILY Wegovy 2.4 mg/0.75 mL pen injector 2.4 mg subcut WEEKLY Qty: 9 0RF clopidogrel 75 mg tablet 75 mg PO DAILY aspirin [Aspir-81] 81 mg Tablet,Delayed Release (Dr/Ec) 81 mg PO DAILY lisinopril 5 mg tablet 5 mg PO DAILY rosuvastatin 10 mg tablet 10 mg PO DAILY Follow-up/Referrals: Karo Rock PAC [Primary Care Provider] - Enrique Saravia MD [Physician] - 1 Week (Necrotic fibroids)
[2024-04-05] MEDS: KETOROLAC 15 MG/ML VIAL (*BKC) IV PUSH (21:31)
--- OUTSIDE RECORDS SUMMARY | 2024-04-12 15:07 | XMS_ITS | Encounter Summary ---
Author Organization [facility] Address [address] [place] [address] Care Team Providers Care Core Filer Name Role Phone Keven Mckenzie MD Primary Care Provider [phone] Encounter Details Date Type Department Care Team [...] on filedocumented in this encounter Care Teams Core Filer Relationship Specialty Start Date End Date Keven Mckenzie MD [address] [place] [address] PCP - General Family Practice 12/27/17 documented as of this encounter
--- OUTSIDE RECORDS SUMMARY | 2024-04-12 15:07 | XMS_ITS | Encounter Summary ---
Author Organization [facility] [employer] [facility] Address [address] [place] [address] Care Team Providers Care Buffer Nickel Name Role Phone Keven Mckenzie MD Primary Care Provider [phone] Encounter Details Date Type Department Care Team (Latest Contact Info) Description 04/22/2023 1:00 PM UTILIZATION MANAGEMENT MANAGER Telephone Check Up [facility] Oncology and Hematology - Juan Manuel [address] [facility] [address] [place] [address] Madyson Perez FNP [address] [facility] [address] [place] [address] Leukocytosis, unspecified type (Primary Dx); [...] therapy lifelong History of non-ST segment elevated [place]: Patient is on aspirin, Plavix, Eliquis Leukocytosis [...] 04/22/2023, 1:15 PM Hematology Oncology Nurse Practitioner [facility] Collaborating Physician: Dr. Gómez Patel. This encounter was completed via audio-only two way synchronous communication. Patient's identity confirmed yes Patient gave verbal consent to have these services billed to their insurance and expressed understanding that co-insurance and deductible may apply: yes Time spent by the provider delivering the care documented in this encounter 20 minutes. IZATION MANAGEMENT MANAGER documented in this encounter Plan of [...] state documented in this encounter Care Teams Buffer Nickel Relationship Specialty Start Date End Date Keven Mckenzie MD [address] [place] [address] PCP - General Family Practice 12/27/17 documented as of this encounter
--- OUTSIDE RECORDS SUMMARY | 2024-04-12 15:07 | XMS_ITS | Encounter Summary ---
Author Organization [facility] Address [address] [place] [address] Care Team Providers Care Serging Machine Operator Name Role Phone Keven Mckenzie MD Primary Care Provider [phone] Encounter Details Date Type Department Care Team (Late st Contact Info) Description 06/25/2023 External Device Data STL ABSTRACTION Provider, Abstract [...] on filedocumented in this encounter Care Teams Serging Machine Operator Relationship Specialty Start Date End Date Keven Mckenzie MD [address] [place] [address] PCP - General Family Practice 12/27/17 documented as of this encounter
--- OUTSIDE RECORDS SUMMARY | 2024-04-12 15:07 | XMS_ITS | Encounter Summary ---
Author Organization [facility] Address [address] [place] [address] Care Team Providers Care Print Binding Worker Name Role Phone Keven Mcknezie MD Primary Care Provider [phone] Encounter Details Date Type Department Care Team [...] on filedocumented in this encounter Care Teams Print Binding Worker Relationship Specialty Start Date End Date Keven Mckenzie MD [address] [place] [address] PCP - General Family Practice 12/27/17 documented as of this encounter
--- OUTSIDE RECORDS SUMMARY | 2024-04-12 15:07 | XMS_ITS | Encounter Summary ---
Author Organization [facility] Address [address] [place] [address] Care Team Providers Care Gleason Operator Name Role Phone Keven Mckenzie MD Primary Care Provider [phone] Encounter Details Date Type Department Care Team [...] on filedocumented in this encounter Care Teams Gleason Operator Relationship Specialty Start Date End Date Keven Mckenzie MD [address] [place] [address] PCP - General Family Practice 12/27/17 documented as of this encounter
--- OUTSIDE RECORDS SUMMARY | 2024-04-12 15:07 | XMS_ITS | Encounter Summary ---
Author Organization [facility] Address [address] [place] [address] Care Team Providers Care Fisherman Helper Name Role Phone Keven Mckenzie MD Primary Care Provider [phone] Encounter Details Date Type Department Care Team [...] on filedocumented in this encounter Care Teams Fisherman Helper Relationship Specialty Start Date End Date Keven Mckenzie MD [address] [place] [address] PCP - General Family Practice 12/27/17 documented as of this encounter
--- OUTSIDE RECORDS SUMMARY | 2024-04-12 15:07 | XMS_ITS | Encounter Summary ---
Author Organization [facility] Address [address] [place] [address] Care Team Providers Care Doubler Helper Name Role Phone Keven Mckenzie MD Primary Care Provider [phone] Encounter Details Date Type Department Care Team [...] on filedocumented in this encounter Care Teams Doubler Helper Relationship Specialty Start Date End Date Keven Mckenzie MD [address] [place] [address] PCP - General Family Practice 12/27/17 documented as of this encounter
--- OUTSIDE RECORDS SUMMARY | 2024-04-12 15:07 | XMS_ITS | Encounter Summary ---
Author Organization [facility] Address [address] [place] [address] Care Team Providers Care Excelsior Picker Name Role Phone Keven Mckenzie MD Primary Care Provider [phone] Encounter Details Date Type Department Care Team (Late st Contact Info) Description 04/22/2023 Orders Only [facility] Oncology and Hematology - Juan Manuel [address] [place] [address] Madyson Perez FNP [address] [facility] 100 [place] [address] Social History Tobacco Use Types [...] W WO CONTRAST Routine 04/19/2023 12:57 PM BLEACH MIXER documented in this encounter Results * MRI ORBIT FACE NECK W WO CONTRAST (04/19/2023 12:57 PM BLEACH MIXER) Anatomical Region Laterality Modality Head Other Madyson PHILIPPE MR ORDERABLES documented in this encounter Visit Diagnoses Not on filedocumented in this encounter Care Teams Excelsior Picker Relationship Specialty Start Date End Date Keven Mckenzie MD [address] [place] [address] [place] [address] PCP - General Family Practice 12/27/17 documented as of this encounter
--- OUTSIDE RECORDS SUMMARY | 2024-04-12 15:07 | XMS_ITS | Encounter Summary ---
Author Organization [facility] Address [address] [place] [address] Care Team Providers Care General Assembler Name Role Phone Keven Mckenzie MD Primary Care Provider [phone] Encounter Details Date Type Department Care Team (Late st Contact Info) Description 05/25/2023 External Device Data STL ABSTRACTION Provider, Abstract [...] on filedocumented in this encounter Care Teams General Assembler Relationship Specialty Start Date End Date Keven Mckenzie MD [address] [place] [address] PCP - General Family Practice 12/27/17 documented as of this encounter
--- OUTSIDE RECORDS SUMMARY | 2024-04-12 15:07 | XMS_ITS | Encounter Summary ---
Author Organization [facility] Address [address] [place] [address] Care Team Providers Care Youth Advocate Name Role Phone Keven Mckenzie MD Primary Care Provider [phone] Encounter Details Date Type Department Care Team [...] on filedocumented in this encounter Care Teams Youth Advocate Relationship Specialty Start Date End Date Keven Mckenzie MD [address] [place] [address] PCP - General Family Practice 12/27/17 documented as of this encounter
--- OUTSIDE RECORDS SUMMARY | 2024-04-12 15:07 | XMS_ITS | Encounter Summary ---
Author Organization [facility] [facility] Address [address] [place] [address] Care Team Providers Care Medical Records Coordinator Name Role Phone Keven Mckenzie MD Primary Care Provider [phone] Encounter Details Date Type Department Care Team (Late st Contact Info) Description 04/21/2023 Orders Only [facility] Oncology and Hematology - Juan Manuel [address] [place] [address] Madyson Perez FNP [address] [facility] 100 [place] [address] Leukocytosis, unspecified type (Primary Dx) [...] Primary documented in this encounter Care Teams Medical Records Coordinator Relationship Specialty Start Date End Date Keven Mckenzie MD [address] [place] [address] [place] [address] PCP - General Family Practice 12/27/17 documented as of this encounter
--- OUTSIDE RECORDS SUMMARY | 2024-04-12 15:07 | XMS_ITS | Encounter Summary ---
Author Organization [facility] Address [address] [place] [address] Care Team Providers Care Bias Machine Operator Helper Name Role Phone Keven Mckenzie MD Primary Care Provider [phone] Encounter Details Date Type Department Care Team [...] on filedocumented in this encounter Care Teams Bias Machine Operator Helper Relationship Specialty Start Date End Date Keven Mckenzie MD [address] [place] [address] PCP - General Family Practice 12/27/17 documented as of this encounter
--- OUTSIDE RECORDS SUMMARY | 2024-04-12 15:07 | XMS_ITS | Encounter Summary ---
Author Organization [facility] Address [address] [place] [address] Care Team Providers Care Scallop Cutter Machine Name Role Phone Keven Mckenzie MD Primary Care Provider [phone] Encounter Details Date Type Department Care Team [...] on filedocumented in this encounter Care Teams Scallop Cutter Machine Relationship Specialty Start Date End Date Keven Mckenzie MD [address] [place] [address] PCP - General Family Practice 12/27/17 documented as of this encounter
--- OUTSIDE RECORDS SUMMARY | 2024-04-12 15:07 | XMS_ITS | Encounter Summary ---
Author Organization [facility] Address [address] [place] [address] Care Team Providers Care Rubber Tire Curer Name Role Phone Keven Mckenzie MD Primary Care Provider [phone] Encounter Details Date Type Department Care Team [...] on filedocumented in this encounter Care Teams Rubber Tire Curer Relationship Specialty Start Date End Date Keven Mckenzie MD [address] [place] [address] PCP - General Family Practice 12/27/17 documented as of this encounter
--- OUTSIDE RECORDS SUMMARY | 2024-04-12 15:07 | XMS_ITS | Encounter Summary ---
Author Organization [email or web address] Address [address] [place] [address] Care Team Providers Care Integrity Assessor Name Role Phone Keven Mckenzie MD Primary Care Provider [phone] Encounter Details Date Type Department Care Team (Late st Contact Info) Description 02/22/2023 Abstract [facility] Oncology and Hematology - Juan Manuel [address] [place] [address] [address] [place] [address] Gómez Patel MD [address] [facility] [address] [place] [address] Social History Tobacco Use Types [...] on filedocumented in this encounter Care Teams Integrity Assessor Relationship Specialty Start Date End Date Keven Mckenzie MD [address] [place] [address] PCP - General Family Practice 12/27/17 documented as of this encounter
--- OUTSIDE RECORDS SUMMARY | 2024-04-12 15:07 | XMS_ITS | Encounter Summary ---
Author Organization [facility] Address [address] [place] [address] Care Team Providers Care Human Performance Consultant Name Role Phone Keven Mckenzie MD Primary [...] on filedocumented in this encounter Care Teams Human Performance Consultant Relationship Specialty Start Date End Date Keven Mckenzie MD [address] [place] [address] PCP - General Family Practice 12/27/17 documented as of this encounter
--- OUTSIDE RECORDS SUMMARY | 2024-04-12 15:07 | XMS_ITS | Encounter Summary ---
Author Organization [facility] [employer] [facility] Address [address] [place] [address] Care Team Providers Care Employment Law Specialist Name Role Phone Keven Mckenzie MD Primary Care Provider [phone] Encounter Details Date Type Department Care Team (Late st Contact Info) Description 02/22/2023 Orders Only [facility] Oncology and Hematology - Juan Manuel [address] [facility] [address] [place] [address] Gómez Patel MD [address] [facility] [address] [place] [address] Social History Tobacco Use Types [...] SMEAR PATH REVIEW Routine 02/19/2023 10:36 AM SLASHER MACHINE OPERATOR CHG BLOOD SMEAR PATH REVIEW Routine 02/18/2023 2:10 PM SLASHER MACHINE OPERATOR ERYTHROPOIETIN LEVEL Routine 02/17/2023 10:33 AM SLASHER MACHINE OPERATOR documented in this encounter Results * CHG BLOOD SMEAR PATH REVIEW (02/19/2023 10:36 AM SLASHER MACHINE OPERATOR) Gómez Patel MD, CHG - LABORATORY * CHG BLOOD SMEAR PATH REVIEW (02/18/2023 2:10 PM SLASHER MACHINE OPERATOR) Gómez M Amanda MD CHG - LABORATORY * ERYTHROPOIETIN LEVEL (02/17/2023 10:33 AM SLASHER MACHINE OPERATOR) Blood Gómez Patel MD CHEMISTRY ORDERABLES documented in this encounter Visit Diagnoses Not on filedocumented in this encounter Care Teams Employment Law Specialist Relationship Specialty Start Date End Date Keven Mckenzie MD [address] [place] [address] PCP - General Family Practice 12/27/17 documented as of this encounter
--- OUTSIDE RECORDS SUMMARY | 2024-04-12 15:07 | XMS_ITS | Encounter Summary ---
Author Organization [facility] [employer] [facility] Address [address] [place] [address] Care Team Providers Care Tire Repairman Name Role Phone Keven Mckenzie MD Primary Care Provider [phone] Reason for Referral * MRI (Routine) - Closed Specialty Diagnoses / Procedures Referred By Dahiana staples Referred To Contact Diagnoses Neck mass Procedures MRI SOFT TISSUE NECK W WO CONTRAST Madyson Perez FNP [phone] [address] [place] [address] Referral ID Status Reason Start Date Expiration Date V isits Requested Visits Authorized [id number] Closed STL CTS 04/16/2023 05/15/2023 1 1 NNER Encounter Details Date Type Department Care Team (Late st Contact Info) Description 04/16/2023 Orders Only [facility] Oncology and Hematology [facility] [address] [place] [address] Madyson Perez FNP [phone] [address] Neck mass (Primary Dx) Social [...] neck documented in this encounter Care Teams Tire Repairman Relationship Specialty Start Date End Date Keven Mckenzie MD [address] [place] [address] PCP - General Family Practice 12/27/17 documented as of this encounter
--- OUTSIDE RECORDS SUMMARY | 2024-04-12 15:07 | XMS_ITS | Encounter Summary ---
Author Organization [facility] [place] [employer] [facility] Address [address] [place] [address] Care Team Providers Care Foreign Car Mechanic Name Role Phone Keven Mckenzie MD Primary Care Provider [phone] Encounter Details Date Type Department Care Team (Late st Contact Info) Description 05/05/2023 Orders Only [facility] Oncology and Hematology - Juan Manuel [address] [place] [address] Madyson Perez FNP [address] [place] [address] Social History Tobacco Use Types Packs/Day [...] Comments PATHOLOGY REPORT Routine 05/04/2023 11:08 AM INVENTORY CONTROL ANALYST documented in this encounter Results * PATHOLOGY REPORT (05/04/2023 11:08 AM INVENTORY CONTROL ANALYST) Madyson PHILIPPE PATHOLOGY/CYTOLOGY O RDERABLES documented in this encounter Visit Diagnoses Not on filedocumented in this encounter Care Teams Foreign Car Mechanic Relationship Specialty Start Date End Date Keven Mckenzie MD [address] [place] [address] [place] [address] PCP - General Family Practice 12/27/17 documented as of this encounter
--- OUTSIDE RECORDS SUMMARY | 2024-04-12 15:07 | XMS_ITS | Clinical Summary ---
Author Organization [facility] Address [address] [place] [address] Care Team Providers Care Pediatric Clinical Dietician Name Role Phone Keven Mckenzie MD Primary Care Provider Allergies Active Allergy Reactions Criticality Noted Date [...] Comments Blood Pressure 111/73 05/10/2023 1:13 PM BIRD KEEPER Pulse 109 05/10/2023 1:13 PM BIRD KEEPER Temperature 37.1 ??C (98.8 ??F) 02/17/2023 2:50 PM CS T Respiratory Rate 16 05/10/2023 1:13 PM BIRD KEEPER Oxygen Saturation 95% 05/10/2023 1:13 PM BIRD KEEPER Inhaled Oxygen Concentration - - Weight 136.4 kg (300 lb 9.6 oz) 05/10/2023 1:13 PM BIRD KEEPER Height 175.3 cm (5' 9 ) 02/17/2023 2:50 PM BIRD KEEPER Body Mass Index 44.39 02/17/2023 2:50 PM BIRD KEEPER Plan of Treatment Health Maintenance Due Date [...] age to complete this topic Care Teams Pediatric Clinical Dietician Relationship Specialty Start Date End Date Keven Mckenzie MD [address] [place] [address] PCP - General Family Practice 12/27/17
--- OUTSIDE RECORDS SUMMARY | 2024-04-12 15:07 | XMS_ITS | Encounter Summary ---
Author Organization [facility] [employer] [facility] Address [address] [place] [address] Care Team Providers Care Groundskeeping Maintenance Name Role Phone Keven Mckenzie MD Primary Care Provider [phone] Encounter Details Date Type Department Care Team (Late st Contact Info) Description 05/03/2023 Orders Only [facility] Oncology and Hematology - Juan Manuel [address] [place] [address] Madyson Perez FNP 321 [facility] 100 [place] [address] Neck mass (Primary Dx) Social [...] neck documented in this encounter Care Teams Groundskeeping Maintenance Relationship Specialty Start Date End Date Keven Mckenzie MD [address] [place] [address] PCP - General Family Practice 12/27/17 documented as of this encounter
--- OUTSIDE RECORDS SUMMARY | 2024-04-12 15:07 | XMS_ITS | Encounter Summary ---
Author Organization [facility] Address [address] [place] [address] Care Team Providers Care Minister Name Role Phone Keven Mckenzie MD Primary Care Provider [phone] Encounter Details Date Type Department Care Team [...] on filedocumented in this encounter Care Teams Minister Relationship Specialty Start Date End Date Keven Mckenzie MD [address] [place] [address] PCP - General Family Practice 12/27/17 documented as of this encounter
--- OUTSIDE RECORDS SUMMARY | 2024-04-12 15:07 | XMS_ITS | Encounter Summary ---
Author Organization [facility] [employer] [facility] Address [address] [place] [address] Care Team Providers Care Pacs Specialist Name Role Phone Keven Mckenzie MD Primary Care Provider [phone] Encounter Details Date Type Department Care Team (Late st Contact Info) Description 03/08/2023 Orders Only [facility] Oncology and Hematology - Juan Manuel [address] [place] [address] [address] [place] [address] Gómez Patel MD [address] [facility] [address] [place] [address] Social History Tobacco Use Types [...] on filedocumented in this encounter Care Teams Pacs Specialist Relationship Specialty Start Date End Date Keven Mckenzie MD [address] [place] [address] PCP - General Family Practice 12/27/17 documented as of this encounter
--- OUTSIDE RECORDS SUMMARY | 2024-04-12 15:07 | XMS_ITS | Encounter Summary ---
Author Organization [facility] [employer] [facility] Address [address] [place] [address] Care Team Providers Care Service Captain Name Role Phone Keven Mckenzie MD Primary Care Provider [phone] Reason for Visit * Reason Comments Follow Up Encounter Details Date Type Department Care Team (Latest Contact Info) Description 05/10/2023 1:00 PM AIR ANALYST Office Visit [facility] Oncology and Hematology - Juan Manuel [address] [facility] 200 [place] [address] Madyson Perez FNP 321 [facility] 100 [place] [address] Leukocytosis, unspecified type (Primary Dx); [...] Comments Blood Pressure 111/73 05/10/2023 1:13 PM AIR ANALYST Pulse 109 05/10/2023 1:13 PM AIR ANALYST Temperature - - Respiratory Rate 16 05/10/2023 1:13 PM AIR ANALYST Oxygen Saturation 95% 05/10/2023 1:13 PM AIR ANALYST Inhaled Oxygen Concentration - - Weight 136.4 kg (300 lb 9.6 oz) 05/10/2023 1:13 PM AIR ANALYST Height - - Body Mass Index 44.39 02/17/2023 2:50 PM AIR ANALYST documented in this encounter Progress Notes * Madyson Perez, FUEL CELL REPAIRER - 05/10/2023 1:15 PM CST Hematology / [...] therapy lifelong History of non-ST segment elevated DE: Patient is on aspirin, Plavix, Eliquis Leukocytosis [...] 05/10/2023, 1:15 PM Hematology Oncology Nurse Practitioner [facility] Collaborating Physician: Dr. Gómez Patel ANALYST documented in this encounter Plan of Treatment [...] state documented in this encounter Care Teams Service Captain Relationship Specialty Start Date End Date Keven Mckenzie MD [address] [place] [address] PCP - General Family Practice 12/27/17 documented as of this encounter
--- OUTSIDE RECORDS SUMMARY | 2024-04-12 15:08 | XMS_ITS | Encounter Summary ---
Author Organization [facility] Address [address] [place] [address] Care Team Providers Care Bottle Blower Name Role Phone Keven Mckenzie MD Primary Care Provider [phone] Encounter Details Date Type Department Care Team (Late st Contact Info) Description 07/11/2019 Orders Only [facility] Oncology and Hematology - Juan Manuel [address] [facility] 200 [place] [address] Gómez Patel MD [address] [facility] [address] [place] [address] Leukemoid reaction Social History Tobacco [...] Gómez Patel MD HEMATOLOGY ORDERABLE S NON [facility] * BASIC METABOLIC PANEL (07/18/2019) Blood Gómez Patel MD CHEMISTRY ORDERABLES NON [facility] documented in this encounter Visit Diagnoses Diagnosis Leukemoid reaction documented in this encounter Care Teams Bottle Blower Relationship Specialty Start Date End Date Keven Mckenzie MD [address] [place] [address] PCP - General Family Practice 12/27/17 documented as of this encounter
--- OUTSIDE RECORDS SUMMARY | 2024-04-12 15:08 | XMS_ITS | Encounter Summary ---
Author Organization [facility] Address [address] [place] [address] Care Team Providers Care Masking Machine Operator Name Role Phone Keven Mckenzie MD Primary Care Provider [phone] Reason for Visit * Reason Onset Date Comments Results 12/28/2017 Encounter Details Date Type Department Care Team (Late st Contact Info) Description 12/28/2017 Telephone [facility] Oncology and Hematology - Juan Manuel [address] [facility] [address] [place] [address] Gómez Patel MD [address] [facility] [address] [place] [address] Results Social History Tobacco Use [...] Primary documented in this encounter Care Teams Masking Machine Operator Relationship Specialty Start Date End Date Keven Mckenzie MD [address] [place] [address] PCP - General Family Practice 12/27/17 documented as of this encounter
--- OUTSIDE RECORDS SUMMARY | 2024-04-12 15:08 | XMS_ITS | Encounter Summary ---
Author Organization [facility] Address [address] [place] [address] Care Team Providers Care Vamp Wetter Name Role Phone Keven Mckenzie MD Primary Care Provider Reason for Visit * Reason Comments Follow Up Results Encounter Details Date Type Department Care Team (Late st Contact Info) Description 05/02/2018 9:30 AM REAL ESTATE ADMINISTRATIVE ASSISTANT Office Visit [facility] Oncology and Hematology [facility] [address] [facility] 200 [place] [address] Gómez Patel MD [address] [facility] [address] [place] [address] Leukocytosis, unspecified type (Primary Dx); [...] Comments Blood Pressure 200/107 05/02/2018 8:51 AM REAL ESTATE ADMINISTRATIVE ASSISTANT Pulse 124 05/02/2018 8:51 AM REAL ESTATE ADMINISTRATIVE ASSISTANT Temperature 36.8 ??C (98.2 ??F) 05/02/2018 8:51 AM CS T Respiratory Rate - - Oxygen Saturation 98% 05/02/2018 8:51 AM REAL ESTATE ADMINISTRATIVE ASSISTANT Inhaled Oxygen Concentration - - Weight 119.7 kg (264 lb) 05/02/2018 8:51 AM REAL ESTATE ADMINISTRATIVE ASSISTANT Height 175.3 cm (5' 9 ) 05/02/2018 8:51 AM REAL ESTATE ADMINISTRATIVE ASSISTANT Body Mass Index 38.99 05/02/2018 8:51 AM REAL ESTATE ADMINISTRATIVE ASSISTANT documented in this encounter Progress Notes * [...] She [place] until her recent admission to [facility] on October 13 when she came into the hospital with right-sided weakness and probable diagnosis of TIA. 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 Transesophageal [...] to smoke. ? 05/02/2018 Gómez Patel MD ESTATE ADMINISTRATIVE ASSISTANT documented in this encounter Plan of Treatment Not on file documented as of this encounter Results * (ABNORMAL) CBC WITH DIFFERENTIAL (07/04/2018) Blood Gómez Patel MD HEMATOLOGY ORDERABLE S EXTERNAL LAB documented in this encounter Visit Diagnoses Diagnosis Leukocytosis, unspecified type- Primary Leukemoid reaction documented in this encounter Care Teams Vamp Wetter Relationship Specialty Start Date End Date Keven Mckenzie MD [address] [place] [address] PCP - General Family Practice 12/27/17 documented as of this encounter
--- OUTSIDE RECORDS SUMMARY | 2024-04-12 15:08 | XMS_ITS | Encounter Summary ---
Author Organization [facility] Address [address] [place] [address] Care Team Providers Care Machine Operator Picker Name Role Phone Keven Mckenzie MD Primary Care Provider [phone] Encounter Details Date Type Department Care Team (Late st Contact Info) Description 04/18/2018 Orders Only [facility] Oncology and Hematology - Juan Manuel [address] [facility] [address] [place] [address] Gómez Patel MD [address] [facility] [address] [place] [address] Social History Tobacco Use Types [...] on filedocumented in this encounter Care Teams Machine Operator Picker Relationship Specialty Start Date End Date Keven Mckeznie MD [address] [place] [address] PCP - General Family Practice 12/27/17 documented as of this encounter
--- OUTSIDE RECORDS SUMMARY | 2024-04-12 15:08 | XMS_ITS | Encounter Summary ---
Author Organization [facility] Address [address] [place] [address] Care Team Providers Care In Tube Conversion Technician Name Role Phone Keven Mckenzie MD Primary Care Provider [phone] Encounter Details Date Type Department Care Team (Late st Contact Info) Description 12/27/2017 Orders Only [facility] Oncology and Hematology - Juan Manuel [address] [facility] [address] [place] [address] Karine Altamirano, RN Lupus anticoagulant [...] state documented in this encounter Care Teams In Tube Conversion Technician Relationship Specialty Start Date End Date Keven Mckenzie MD [address] [place] [address] PCP - General Family Practice 12/27/17 documented as of this encounter
--- OUTSIDE RECORDS SUMMARY | 2024-04-12 15:08 | XMS_ITS | Encounter Summary ---
Author Organization [facility] Address [address] [place] [address] Care Team Providers Care Etcher Electrolytic Name Role Phone Keven Mckenzie MD Primary Care Provider [phone] Encounter Details Date Type Department Care Team (Late st Contact Info) Description 02/18/2023 Orders Only [facility] Oncology and Hematology - Juan Manuel [address] [facility] [address] [place] [address] Gómez Patel MD [address] [facility] [address] [place] [address] Claustrophobia (Primary Dx) Social History [...] ST NECK W Routine 02/17/2023 12:51 PM PSYCHIATRIC NURSING AIDE documented in this encounter Results * CT HEAD W + ST NECK W (02/17/2023 12:51 PM PSYCHIATRIC NURSING AIDE) Anatomical Region Laterality Modality Head Other Gómez Patel MD CT ORDERABLES documented in this encounter Visit Diagnoses Diagnosis Claustrophobia- Primary Other isolated or specific phobias documented in this encounter Care Teams Etcher Electrolytic Relationship Specialty Start Date End Date Keven Mckenzie MD [address] [place] [address] PCP - General Family Practice 12/27/17 documented as of this encounter
--- OUTSIDE RECORDS SUMMARY | 2024-04-12 15:08 | XMS_ITS | Encounter Summary ---
Author Organization [facility] [facility] Address [address] [place] [address] Care Team Providers Care Oyster Fisherman Name Role Phone Keven Mckenzie MD Primary Care Provider [phone] Reason for Visit * Reason Comments Follow Up 6 MTH FU W /LABS Encounter Details Date Type Department Care Team (Late st Contact Info) Description 01/16/2019 3:45 PM CDT Office Visit [facility] Oncology and Hematology - Juan Manuel [address] [facility] 200 [place] [address] Gómez Patel MD [address] [facility] [address] [place] [address] Leukemoid reaction (Primary Dx) Social [...] TIA diagnosed October 2017 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 She is currently on Plavix, aspirin and Eliquis. She will stay on lifetime on anti-correlation therapy. She had echocardiogramdone 3 weeks ago showed no evidence of thrombosis by her liner machine operator. History of non-ST segment elevated ME. Patient is on aspirin and Plavix. Reactive [...] Patel MD CHEMISTRY ORDERABLES Performing Organization Address [facility] Co de Phone Number NON [facility] * CBC WITH DIFFERENTIAL (07/18/2019) Blood Gómez Patel MD HEMATOLOGY ORDERABLE S Performing Organization Address [facility] Co de Phone Number NON [facility] documented in this encounter Visit Diagnoses Diagnosis Leukemoid reaction- Primary documented in this encounter Care Teams Oyster Fisherman Relationship Specialty Start Date End Date Keven Mckenzie MD [address] [place] [place] [address] PCP - General Family Practice 12/27/17 documented as of this encounter
--- OUTSIDE RECORDS SUMMARY | 2024-04-12 15:08 | XMS_ITS | Data Portability ---
Author Organization [facility] OFFICE Address [address] [place] [address] Care Team Providers Care Singing Teacher Name Role Phone KALYAN DAO Primary Care Provider KALYAN DAO Referring Provider KALYAN DAO Primary Care Provider Assessment Encounter Date Assessment Date Assessment LastModified by Organization Details LastModified Time 12/31/2020 12/31/2020 Patient Examined by Nuzhat Domingo PA-C, Also interviewed / examined by Supervising physician. Assessment / plan discussed and implemented Encounter scribed by AJITH Jaime. Documentation reviewed and approved by supervising physician [email or web address] Not available 12/29/2020 14:25:22 Plan of Treatment Reminders Order Date Submit Date Provider Last Modified By Organization Details Last Modified Time Details Appointments None recorded. Lab None recorded. Referral None recorded. Procedures None recorded. Surgeries None recorded. Imaging None recorded. Medication Orders Eliquis 5 mg tablet 021 [id number] [facility], [address] [place], [address], 17:29:40 Patient TargetsNo targets recorded. Patient Instructions Encounter Date Encounter Id Patient Instructions Last Modified By Organization Details Last Modified Time 12/31/2020 [id number] deciding about using medicines to quit smoking [email or web address] Not available 12/31/2020 17:29:31 Quitting Tobacco: Care Instructions [email or web address] Not available 12/31/2020 17:29:31 stroke: care instructions [email or web address] Not available 12/31/2020 17:29:31 Peripheral Arterial Disease (PAD): Care Instructions [email or web address] Not available 12/31/2020 17:29:31 05/13/2021 [id number] deciding about using medicines to quit smoking [email or web address] Not available 05/13/2021 15:58:37 Quitting Tobacco: Care Instructions [email or web address] Not available 05/13/2021 15:58:37 stroke: care instructions [email or web address] Not available 05/13/2021 15:58:37 Peripheral Arterial Disease (PAD): Care Instructions [email or web address] Not available 05/13/2021 15:58:37 12/25/2021 [id number] Weight loss 20? ? ?pounds Exercise advised Low cholesterol diet advised Low sodium diet advised. [email or web address] Not available 12/25/2021 17:40:40 06/25/2022 [id number] Weight loss 20? ? ?pounds Exercise advised Low cholesterol diet advised Low sodium diet advised. [email or web address] Not available 06/25/2022 17:27:21 Reason for Referral None Reported. Results Created Date Observation Date Name Description Value Unit Range Abnormal Flag Note LastModifiedBy Organization Detail LastModifiedTime 12/23/19 21 12/18/2020 , [facility] ardio gram No observ ation record ed. [facility] [address], [place], [address], 12/29/2020 14:27:24 01/01/20 21 11/19/2020 elect flory diogr am No observ ation record ed. [email or web address] Not Available 2020 15:29:45 01/18/20 21 12/24/2020 exerc ise stres s test No observ ation record ed. [email or web address] Not Available 2020 12:59:48 05/14/19 22 05/13/2021 elect rocar diogr am No observ ation record ed. [email or web address] Not Available 2021 14:40:46 12/27/19 22 12/25/2021 elect rocar diogr am No observ ation record ed. [email or web address] Not Available 2021 10:21:53 06/30/19 06/25/2022 elect flory yang am No observ ation record ed. [email or web address] Not Available 2022 18:06:16 09/08/19 24 09/07/2023 elect flory swansongr am No observ ation record ed. [email or web address] Not Available 2023 16:04:07 Result Notes Documentation Provider Name and Address Organization Details Recorded Time Lipid Panel, Blood : 07/17/20:Na 139,k 4.1,Cl 104,Co2 24,Glu 93,Bun 09,Cr 1.00. 11/23/20:TC 124,TG 122,HDL 32,LDL 65,Ast 34,Alt 36,CK 78. 11/23/20:WBC 11.3,RBC 5.19,Hgb 16.0,Hct 49.3,Plt 357. Dana dumont [facility] 03/29/2021 19:35:28 Problems Name Problem SNOMED Code Status Onset Date Resolution Date Notes Provider Name and Address Organization Details Recorded Time Acute non-ST segment elevation myocardial infarction 978352327 Active [address] [facility] 8 13:25:53 Cerebrovascula r accident 677541546 Active 2017 Angeline dumont [place] [facility] 8 13:26:07 Anxiety 44400079 Active [address] [facility] 8 15:00:20 Cramp in lower limb 644299960 Active [address] [facility] 8 10:19:56 Peripheral arterial occlusive disease 173242173 Active 2017 Sheldon dumont [place] [facility] 8 11:34:57 Dyslipidemia 278932414 Active 2017 Sheldon dumont [place] [facility] 8 11:51:15 Tobacco dependence syndrome 12506693 Active [address] [facility] 8 11:55:45 Pre-surgery evaluation Active [address] [facility] 9 13:09:38 Problem Notes None recorded. Procedures Surgical History Date Name Laterality Status Provider Name and Address Organization Details Recorded Time 8 Caesarean Section completed Dorys Goldberg [facility] 11/01/2017 10:22:25 Imaging Results Imaging Date Name Status LastModified by Organization Details LastModified Time 12/18/2020 US, echocardiogram completed [facility] [place] [id number] [facility] [address], [place], [address], 12/29/2020 14:27:24 11/19/2020 electrocardiogram completed [email or web address] Informa tion not available 12/31/2020 15:29:45 12/24/2020 exercise stress test completed Info rmation not available 01/17/2021 12:59:48 05/13/2021 electrocardiogram completed Informa tion not available 05/14/2021 14:40:46 12/25/2021 electrocardiogram completed Informa tion not available 12/26/2021 10:21:53 06/25/2022 electrocardiogram completed Informa tion not available 07/02/2022 18:06:16 09/07/2023 electrocardiogram completed [email or web address] Informa tion not available 09/09/2023 16:04:07 Procedure Notes None recorded. Medical Equipment None Reported. Allergies No known drug allergies Medications Name Sig Start Date Stop Date Status Note LastModified by Organization Details LastModified Time amoxicilli n 500 mg capsule TAKE 1 CAPSULE BY MOUTH THREE TIMES DAILY UNTIL GONE 06/25 completed pt is no longer taking 12/25/21 SA Not Available Not Available Not Available atorvastat in 40 mg tablet Take 1 tablet every day by oral route at bedtime. 02/14 completed Not Available Not Available Not Available doxycyclin e hyclate 100 mg capsule TAKE 1 CAPSULE BY MOUTH TWICE DAILY FOR 1 WEEK 06/25 completed pt no longer takes 05/13/21 nj Not Available Not Available Not Available clindamyci n HCl 300 mg capsule 10/22 completed pt not taking 10/23/19 Not Available Not Available Not Available metoprolol succinate ER 50 mg tablet,ext ended release 24 hr Take 1 tablet every day by oral route. 08/08 completed Not Available Not Available Not Available hydrocodon e 5 mg-acetami nophen 325 mg tablet TAKE 1 TABLET BY MOUTH EVERY 6 HOURS NEEDED FOR PAIN 09/06 completed Not Available Not Available Not Available ondansetro n HCl 4 mg tablet TAKE 1 TABLET BY MOUTH EVERY 8 HOURS NEEDED FOR NAUSEA AND VOMITING 06/25 completed pt no longer takes 021 nj Not Available Not Available Not Available metoprolol succinate ER 100 mg tablet,ext ended release 24 hr TAKE 1 TABLET BY MOUTH ONCE DAILY active Not Available Not Available No t Available acetaminop hen 300 mg-codeine 30 mg tablet TAKE 1 TABLET BY MOUTH 4 TIMES DAILY NEEDED FOR PAIN 06/25 completed pt no longer takes 021 nj Not Available Not Available Not Available clopidogre l 75 mg tablet TAKE 1 TABLET BY MOUTH ONCE DAILY active Not Available Not Available No t Available sulfametho xazole 800 mg-trimeth oprim 160 mg tablet TAKE 1 TABLET BY MOUTH EVERY 12 HOURS FOR 6 DAYS 09/06 completed Not Available Not Available Not Available tramadol 50 mg tablet 10/24 completed Not Available Not Available Not Available triamcinol one acetonide 0.1 % topical cream 10/24 completed No longer take it 9 : MA Not Available Not Available Not Available amoxicilli n 875 mg tablet 10/22 completed pt not taking Not Available Not Available Not Available cephalexin 500 mg capsule TAKE 1 CAPSULE BY MOUTH EVERY 12 HOURS FOR 3 DAYS 06/25 completed pt no longer takes 021 nj Not Available Not Available Not Available triamcinol one acetonide 0.1 % topical ointment prn 06/25 completed pt no longer takes 021 nj Not Available Not Available Not Available lisinopril 5 mg tablet Take 1 tablet by mouth once daily 2023 active Not Available Not Available Not Avai lable metoprolol succinate ER 25 mg tablet,ext ended release 24 hr Take 1 tablet every day by oral route. 08/08 completed Pt take 1 tab 25 mg every 24 hours 9 : MA Not Available Not Available Not Available lorazepam 1 mg tablet TAKE 1 TABLET BY MOUTH 20 MINUTES BEFORE THE MRI. MAY REPEAT ONCE. 09/06 completed Not Available Not Available Not Available Vitamin D2 1,250 mcg (50,000 unit) capsule Take by oral route for 28 days. 11/07 completed Not Available Not Available Not Available amoxicilli n 875 mg-potassi um clavulanat e 125 mg tablet 08/08 completed No longer take it . 9 : MA Not Available Not Available Not Available rosuvastat in 10 mg tablet TAKE 1 TABLET BY MOUTH ONCE DAILY AT BEDTIME active Not Available Not Available No t Available metoprolol tartrate 25 mg tablet Take 0.5 tablets twice a day by oral route. 03/21 completed Not Available Not Available Not Available nitrofuran toin monohydrat e/macrocry stals 100 mg capsule 01/22 completed PT. NO LONGER TAKE 9 FH Not Available Not Available Not Available Aspir-81 04/25 completed Pt take 1 tab 81 mg every 24 hours Not Available Not Available Not Available Livalo 2 mg tablet Take 1 tablet every day by oral route in the evening. 05/30 completed No longer take it 9 : MA Not Available Not Available Not Available Eliquis 5 mg tablet TAKE 1 TABLET BY MOUTH TWICE DAILY DIRECTED active Not Available Not Available No t Available Eliquis 2.5 mg tablet Take 2 tablets twice a day by oral route as directed . 01/22 completed pt not taking Not Available Not Available Not Available Adult Aspirin Regimen 81 mg tablet,del ayed release Take 1 tablet every day by oral route. active Not Available Not Available No t Available Xarelto 2.5 mg tablet Take 1 tablet twice a day by oral route as directed . 01/22 completed Not Available Not Available Not Available Wegovy 2.4 mg/0.75 mL subcutaneo us pen injector INJECT 1 SYRINGE SUBCUTAN EOUSLY ONCE A WEEK active Not Available Not Available No t Available Wegovy 1.7 mg/0.75 mL subcutaneo us pen injector INJECT 1 SYRINGE SUBCUTAN EOUSLY ONCE A WEEK active Not Available Not Available No t Available Wegovy 1 mg/0.5 mL subcutaneo us pen injector INJECT 1MG SUBCUTAN EOUSLY ONCE A WEEK active Not Available Not Available No t Available Wegovy 0.25 mg/0.5 mL subcutaneo us pen injector INJECT 1 SYRINGE SUBCUTAN EOUSLY ONCE A WEEK ADMINIST ER WEEKS 1-4 OF THERAPY 09/06 completed Not Available Not Available Not Available Wegovy 0.5 mg/0.5 mL subcutaneo us pen injector INJECT 1 SYRINGE SUBCUTAN EOUSLY ONCE A WEEK FOR WEIGHT GAIN active Not Available Not Available No t Available Vitals Date Recorded Body height Body mass index (BMI) Body weight Oxygen saturation Oxygen saturation in Arterial blood by Pulse oximetry Heart rate Systolic blood pressure Diastolic blood pressure Provider Name and Address Organization Details Last Updated DateTime 1 175.26 cm 41.3 kg/m2 762254. 86 g 96 % 96 % 100 /min 112 mm[Hg] 82 mm[Hg] TANYA RAI [facility] 1 17:08:52 Date Recorded Body height Body mass index (BMI) Body weight Oxygen saturation Oxygen saturation in Arterial blood by Pulse oximetry Heart rate Systolic blood pressure Diastolic blood pressure Provider Name and Address Organization Details Last Updated DateTime 2 175.26 cm 41.9 kg/m2 584358. 23 g 97 % 97 % 94 /min 126 mm[Hg] 72 mm[Hg] TANYA RAI [facility] 2 15:45:13 Date Recorded Body height Body mass index (BMI) Body weight Oxygen saturation Oxygen saturation in Arterial blood by Pulse oximetry Heart rate Systolic blood pressure Diastolic blood pressure Provider Name and Address Organization Details Last Updated DateTime 2 175.26 cm 40.6 kg/m2 222751. 54 g 94 % 94 % 91 /min 120 mm[Hg] 82 mm[Hg] JEREMIGRACE PEREAONY [facility] 2 17:13:54 Date Recorded Body height Body mass index (BMI) Body weight Heart rate Respiratory rate Oxygen saturation Oxygen saturation in Arterial blood by Pulse oximetry Systolic blood pressure Diastolic blood pressure Provider Name and Address Organization Details Last Updated DateTime 3 175.26 cm 41.5 kg/m2 406537. 46 g 82 /min 16 /min 96 % 96 % 132 mm[Hg] 84 mm[Hg] Gene Holcomb i, MD [address] [place], [address], [place] [facility] 3 16:54:05 Date Recorded Body weight Heart rate Oxygen saturation Oxygen saturation in Arterial blood by Pulse oximetry Systolic blood pressure Diastolic blood pressure Provider Name and Address Organization Details Last Updated DateTime 4 508922. 55 g 98 /min 97 % 97 % 110 mm[Hg] 68 mm[Hg] Sherly Jung [facility] 4 17:08:19 Date Recorded Body height Body mass index (BMI) Body height Provider Name and Address Organization Details Last Updated DateTime 09/07/2023 175.26 cm 45.2 kg/m2 175.26 cm Rebecca ORDONEZ Jackelyn [facility] 09/09/2023 15:24:40 Social History Question Answer Notes LastModified by Organizat ion Details LastModified Time Tobacco Smoking Status Current Every Day Smoker Not Available [facility] 02/06/2020 03:30:42 What Is Your Level Of Alcohol Consumption? None [id number] Information not available 02/06/2020 What Is Your Level Of Caffeine Consumption? Occasional [id number] Information not available 02/06/2020 How Much Tobacco Do You Chew? None [id number] Information not available 02/06/2020 What Type Of Diet Are You Following? REGULAR [id number] Information not available 02/06/2020 Which Illicit Or Recreational Drugs Have You Used? None [id number] Information not available 02/06/2020 Do You Or Have You Ever Used E-cigarettes Or Vape? Current User Of Electronic Cigarettes Information not available 03/29/2021 Live Alone Or With Others? With Others With Family Information not available 10/29/2017 Marital Status [email or web address] Informatio n not available 11/01/2017 What Was The Date Of Your Most Recent Tobacco Screening? 08/08/2018 [id number] Information not available 02/06/2020 How Many Children Do You Have? 1 [id number] Information not available 02/06/2020 How Much Tobacco Do You Smoke? 1 PPD Information not available 03/29/2021 Sex: Unknown Functional Status Question Answer Note LastModified by Organization D etails LastModified Time What is your exercise level? None [id number] Information not available 02/06/2020 Mental Status None recorded. Family History Relationship Description Onset Age of this Age Resolved Age Notes LastModified by Organization Details LastModified Time Mother Heart disease [email or web address] Not available 2017 10:20:46 Mother Diabetes mellitus nleinicke Not available 2017 10:20:57 Mother Hypercholest erolemia nleinicke Not available 2017 10:21:05 Mother Hypertensive disorder nleinicke Not available 2017 10:21:21 Father Hypercholest erolemia nleinicke Not available 2017 10:21:05 Father Cerebrovascu lar accident nleinicke Not available 10:21:12 Medical History Condition Response Myocardial Infarction Y Hyperlipidemia Y Stroke Y Gynecological HistoryNo gynecological history recorded. Obstetrics History GPAL:G 0 P 0 0 0 0 Past Encounters Encounter ID Performer Location Encounter Start Date Encounter Closed Date Diagnosis/Indication Diagnosis SNOMED-CT Code Diagnosis ICD10 Code Diagnosis Note [id number] [facility] OFF[facility] [address] [place] [address] 11/01/2017 09:58:45 11/10/2017 17:49:29 Acute non-ST segment elevation myocardial infarction 635998944 I21.4 10/13/17 at [facility], with LAD thrombus. Had ECHO on 10/13/17 showing mild concentric left ventricula r hypertroph y. Normal left ventricula r size. Left ventricula r systolic function at the lower limit of normal. Ejection fraction is visually estimated at 50%. Had akinesis of mid to apical anterolate ral wall and hypokinesi s of mid anterior to mid inferolate ral wall. gb On Metoprolol Tartrate, Aspirin 81 mg and Eliquis 5 mg twice daily.. Began Plavix 75mg qd 11/01/17. 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 Had CVA on coumadin and on Lovenox previously . Patient instructed that medication regimen not safe in . Cerebrovas cular accident 179127119 I63.9 CVA x4, 6611-4726. Continue Aspirin 81 mg and Eliquis 5 mg twice daily.. Began Plavix 75mg qd 11/01/17. Obtain Carotid/US . Peripheral arterial occlusive disease 926155926 I73.9 Unable to obtain BP either arm by stethoscop e but patient not dizzy. Pulse palpable but diminished in arms. By Doppler, SBP 96 today. Obtain bilateral upper extremity arterial Doppler to evaluate for PAD, possibly related to thrombus. Dyslipidemia 968510794 E 78.5 LDL 106. Needs to keep LDL less than 70, and HDL more than 40. Began atorvastat in 40 mg qHS 11/01/17. Tobacco de pendence syndrome 09224259 F17.200 Cessation critical. [id number] [facility] [address] [place] [address] 11/17/2017 11:28:15 04/08/2018 10:31:28 Acute non-ST segment elevation myocardial infarction [id number] I21.4 10/13/17 at [facility], with LAD thrombus. Had ECHO on 10/13/17 showing mild concentric left ventricula r hypertroph y. Normal left ventricula r size. Left ventricula r systolic function at the lower limit of normal. Ejection fraction is visually estimated at 50%. Had akinesis of mid to apical anterolate ral wall and hypokinesi s of mid anterior to mid inferolate ral wall. On Metoprolol Tartrate, Aspirin 81 mg and Eliquis 5 mg twice daily.. Began Plavix 75mg qd 11/01/17. 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 Had CVA on coumadin and on Lovenox previously . Patient instructed that medication regimen not safe in . Recommende d cardiac rehab but patient has transporta tion issues. Cerebrovas cular accident 310436552 I63.9 CVA x4, 5739-9630. Continue Aspirin 81 mg and Eliquis 5 mg twice daily. Began Plavix 75mg qd 11/01/17. Obtained Carotid U/S 11/04/17 with <15% bilateral ICA stenosis. Peripheral arterial occlusive disease 399952607 I73.9 Unable to obtain BP either arm by stethoscop e but patient not dizzy. Pulse palpable but diminished in arms as per last visit. By Doppler, SBP 95 11/04/17. Obtained bilateral upper extremity arterial Doppler 11/04/17 to evaluate for PAD, possibly related to thrombus, which revealed patent arteries, with bilateral brachial artery pressures 95. Dyslipidemia 808854886 E 78.5 LDL 106. Needs to keep LDL less than 70, and HDL more than 40. Began atorvastat in 40 mg qHS 11/01/17. Tobacco de pendence syndrome 44148516 F17.200 Cessation critical. Has reduced tobacco use. [id number] [facility] [address] [place] [address] 02/14/2018 13:55:10 02/14/2018 15:23:50 Acute non-ST segment elevation myocardial infarction [id number] I21.4 10/13/17 at [facility], with LAD thrombus. Had ECHO on 10/13/17 showing mild concentric left ventricula r hypertroph y. Normal left ventricula r size. Left ventricula r systolic function at the lower limit of normal. Ejection fraction is visually estimated at 50%. Had akinesis of mid to apical anterolate ral wall and hypokinesi s of mid anterior to mid inferolate ral wall. On Metoprolol Tartrate, Aspirin 81 mg and Eliquis 5 mg twice daily.. Began Plavix 75mg qd 11/01/17. 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 Had CVA on coumadin and on Lovenox previously . Patient instructed that medication regimen not safe in . Recommende d cardiac rehab but patient has transporta tion issues. For resting HR 97, increased to metoprolol tartrate 25 mg bid 02/14/18. Began lisinopril 5 mg qd 02/14/18, a few days after increase in metoprolol . Obtain BMP, Mg 3 wks. Cerebrovas cular accident 080123163 I63.9 CVA x4, 5864-9814. Continue Aspirin 81 mg and Eliquis 5 mg twice daily. Began Plavix 75mg qd 11/01/17. Obtained Carotid U/S 11/04/17 with <15% bilateral ICA stenosis. Peripheral arterial occlusive disease 222008810 I73.9 Unable to obtain BP either arm by stethoscop e but patient not dizzy. Pulse palpable but diminished in arms as per last visit. By Doppler, SBP 95 11/04/17. Obtained bilateral upper extremity arterial Doppler 11/04/17 to evaluate for PAD, possibly related to thrombus, which revealed patent arteries, with bilateral brachial artery pressures 95. Dyslipidemia 713382702 E 78.5 LDL 106. Needs to keep LDL less than 70, and HDL more than 40. Began atorvastat in 40 mg qHS 11/01/17. Obtain FLP. Tobacco de pendence syndrome 45865667 F17.200 Cessation critical. Has reduced tobacco use. [id number] [facility] [address] [place] [address] 03/21/2018 11:22:35 03/31/2018 10:14:37 Acute non-ST segment elevation myocardial infarction 636694865 I21.4 10/13/17 at [facility], with LAD thrombus. Had ECHO on 10/13/17 showing mild concentric left ventricula r hypertroph y. Normal left ventricula r size. Left ventricula r systolic function at the lower limit of normal. Ejection fraction is visually estimated at 50%. Had akinesis of mid to apical anterolate ral wall and hypokinesi s of mid anterior to mid inferolate ral wall. On Metoprolol Tartrate, Aspirin 81 mg and Eliquis 5 mg twice daily.. Began Plavix 75mg qd 11/01/17. 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 Had CVA on coumadin and on Lovenox previously . Patient instructed that medication regimen not safe in . Recommende d cardiac rehab but patient has transporta tion issues. For resting HR 97, increased to metoprolol tartrate 25 mg bid 02/14/18 but with profound fatigue. Changed to metoprolol succinate 25 mg qd 03/21/18 with considerat ion of trial of increase to 50 mg qd given elevated resting HR. Began lisinopril 5 mg qd 02/14/18, a few days after increase in metoprolol . Consider increase in lisinopril next visit. Obtain BMP, Mg 3 wks. Cerebrovas cular accident [id number] I63.9 CVA x4, 9356-2367. Continue Aspirin 81 mg and Eliquis 5 mg twice daily. Began Plavix 75mg qd 11/01/17. Obtained Carotid U/S 11/04/17 with <15% bilateral ICA stenosis. Peripheral arterial occlusive disease 871837545 I73.9 Unable to obtain BP either arm by stethoscop e but patient not dizzy. Pulse palpable but diminished in arms as per last visit. By Doppler, SBP 95 11/04/17. Obtained bilateral upper extremity arterial Doppler 11/04/17 to evaluate for PAD, possibly related to thrombus, which revealed patent arteries, with bilateral brachial artery pressures 95. Dyslipidemia 540095991 E 78.5 LDL 106. Needs to keep LDL less than 70, and HDL more than 40. Began atorvastat in 40 mg qHS 11/01/17. Obtain FLP. Tobacco de pendence syndrome 22068154 F17.200 Cessation critical. Has reduced tobacco use 1 cigarette. [id number] [facility] OFFICE [address] [place] [address] 05/30/2018 11:44:00 05/30/2018 13:20:06 Acute non-ST segment elevation myocardial infarction 633159135 I21.4 10/13/17 at [facility], with LAD thrombus. Had ECHO on 10/13/17 showing mild concentric left ventricula r hypertroph y. Normal left ventricula r size. Left ventricula r systolic function at the lower limit of normal. Ejection fraction is visually estimated at 50%. Had akinesis of mid to apical anterolate ral wall and hypokinesi s of mid anterior to mid inferolate ral wall. On Metoprolol Tartrate, Aspirin 81 mg and Eliquis 5 mg twice daily.. Began Plavix 75mg qd 11/01/17. 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 Had CVA on coumadin and on Lovenox previously . Patient instructed that medication regimen not safe in . Recommende d cardiac rehab but patient has transporta tion issues. For resting HR 97, increased to metoprolol tartrate 25 mg bid 02/14/18 but with profound fatigue. Changed to metoprolol succinate 25 mg qd 03/21/18. Increased to metoprolol succinate 50 mg qd given elevated resting HR 05/30/18. Began lisinopril 5 mg qd 02/14/18, a few days after increase in metoprolol . Had 04/11/18: Na 137 , K 4.7 ,CL 104 ,CO2 25 ,GLU 85, BUN 12 ,CR 0.92, Mg 2.0. Consider increase in lisinopril next visit. Cerebrovas cular accident [id number] I63.9 CVA x4, 1858-2170. Continue Aspirin 81 mg and Eliquis 5 mg twice daily. Began Plavix 75mg qd 11/01/17. Obtained Carotid U/S 11/04/17 with <15% bilateral ICA stenosis. Peripheral arterial occlusive disease [id number] I73.9 Unable to obtain BP either arm by stethoscop e but patient not dizzy. Pulse palpable but diminished in arms as per last visit. By Doppler, SBP 95 11/04/17. Obtained bilateral upper extremity arterial Doppler 11/04/17 to evaluate for PAD, possibly related to thrombus, which revealed patent arteries, with bilateral brachial artery pressures 95. Dyslipidemia [id number] E 78.5 LDL 106. Needs to keep LDL less than 70, and HDL more than 40. Began atorvastat in 40 mg qHS 11/01/17 but patient had muscle pains. Patient was tolerating Livalo subsequent ly, but insurance no longer covers. Obtained FLP 04/11/18 with LDL 78 while on Livalo 2 mg qHS. Changed to Crestor 10 mg qHS 05/30/18. Obtain FLP, CPK, CMP, Mg 1 mo. Tobacco de pendence syndrome [id number] F17.200 Cessation critical. Has reduced tobacco use 1 cigarette. Pre-surger y evaluation [id number] Z01.818 Patient may need 2 teeth extracted or repaired. There is no cardiac contraindi cation for the procedure. The planned procedure would be within acceptable risk. {{ Patient may stop taking aspirin and Plavix five (5) days prior to the procedure. *}}Would continue Eliquis if at all possible given thrombus in left ventricle and in LAD coronary artery noted 10/2017, with risk of stroke and PA off Eliquis in setting of lupus anticoagul ant. [id number] Sheldon Henriquez [facility] [address] [place] [address] 08/08/2018 11:42:14 08/08/2018 12:45:48 Acute non-ST segment elevation myocardial infarction [id number] I21.4 10/13/17 at [facility], with LAD thrombus. Had ECHO on 10/13/17 showing mild concentric left ventricula r hypertroph y. Normal left ventricula r size. Left ventricula r systolic function at the lower limit of normal. Ejection fraction is visually estimated at 50%. Had akinesis of mid to apical anterolate ral wall and hypokinesi s of mid anterior to mid inferolate ral wall. On Metoprolol Tartrate, Aspirin 81 mg and Eliquis 5 mg twice daily.. Began Plavix 75mg qd 11/01/17. 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 Had CVA on coumadin and on Lovenox previously . Patient instructed that medication regimen not safe in . Recommende d cardiac rehab but patient has transporta tion issues. For resting HR 97, increased to metoprolol tartrate 25 mg bid 02/14/18 but with profound fatigue. Changed to metoprolol succinate 25 mg qd 03/21/18. Increased to metoprolol succinate 50 mg qd given elevated resting HR 05/30/18. Began lisinopril 5 mg qd 02/14/18, a few days after increase in metoprolol . Had 04/11/18: Na 137 , K 4.7 ,CL 104 ,CO2 25 ,GLU 85, BUN 12 ,CR 0.92, Mg 2.0. Consider increase in lisinopril next visit. Increased to metoprolol succinate 100 mg qd given elevated resting HR 08/08/18.Obt ain TSH. BP monitor. Obtain CBC given heavy periods. Consider echo once HR lower. Cerebrovas cular accident [id number] I63.9 CVA x4, 3573-9472. Continue Aspirin 81 mg and Eliquis 5 mg twice daily. Began Plavix 75mg qd 11/01/17. Obtained Carotid U/S 11/04/17 with <15% bilateral ICA stenosis. Peripheral arterial occlusive disease [id number] I73.9 Unable to obtain BP either arm by stethoscop e but patient not dizzy. Pulse palpable but diminished in arms as per last visit. By Doppler, SBP 95 11/04/17. Obtained bilateral upper extremity arterial Doppler 11/04/17 to evaluate for PAD, possibly related to thrombus, which revealed patent arteries, with bilateral brachial artery pressures 95. Dyslipidemia [id number] E 78.5 LDL 106. Needs to keep LDL less than 70, and HDL more than 40. Began atorvastat in 40 mg qHS 11/01/17 but patient had muscle pains. Patient was tolerating Livalo subsequent ly, but insurance no longer covers. Obtained FLP 04/11/18 with LDL 78 while on Livalo 2 mg qHS. Changed to Crestor 10 mg qHS 05/30/18. Had 07/04/18 lipid panel: LDL 70. Tobacco de pendence syndrome [id number] F17.200 Cessation critical. Has reduced tobacco to almost nothing. Pre-surger y evaluation [id number] Z01.818 Patient may need 2 teeth extracted or repaired with crown. There is no cardiac contraindi cation for the procedure. The planned procedure would be within acceptable risk. {{ Patient may stop taking aspirin and Plavix five (5) days prior to the procedure. *}}Would continue Eliquis if at all possible given thrombus in left ventricle and in LAD coronary artery noted 10/2017, with risk of stroke and PA off Eliquis in setting of lupus anticoagul ant. [address] Sheldon Moraleshman [facility] [address] [place] [address] 11/07/2018 10:56:56 11/07/2018 12:08:52 Acute non-ST segment elevation myocardial infarction [id number] I21.4 10/13/17 at [facility], with LAD thrombus. Had ECHO on 10/13/17 showing mild concentric left ventricula r hypertroph y. Normal left ventricula r size. Left ventricula r systolic function at the lower limit of normal. Ejection fraction is visually estimated at 50%. Had akinesis of mid to apical anterolate ral wall and hypokinesi s of mid anterior to mid inferolate ral wall. On Metoprolol Tartrate, Aspirin 81 mg and Eliquis 5 mg twice daily.. Began Plavix 75mg qd 11/01/17. 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 Had CVA on coumadin and on Lovenox previously . Patient instructed that medication regimen not safe in . Recommende d cardiac rehab but patient has transporta tion issues. For resting HR 97, increased to metoprolol tartrate 25 mg bid 11/12/18 but with profound fatigue. Changed to metoprolol succinate 25 mg qd 03/21/18. Increased to metoprolol succinate 50 mg qd given elevated resting HR 05/30/18. Began lisinopril 5 mg qd 02/14/18, a few days after increase in metoprolol . Had 04/11/18: Na 137 , K 4.7 ,CL 104 ,CO2 25 ,GLU 85, BUN 12 ,CR 0.92, Mg 2.0. Consider increase in lisinopril next visit. Increased to metoprolol succinate 100 mg qd given elevated resting HR 08/08/18. BP monitor. Obtained CBC with normal hgb 07/2018 given heavy periods. Obtain echo to evaluate for structural /functiona l disease. Obtain TSH, CMP, Mg. Cerebrovas cular accident [id number] I63.9 CVA x4, 1659-4379. Continue Aspirin 81 mg and Eliquis 5 mg twice daily. Began Plavix 75mg qd 11/01/17. Obtained Carotid U/S 11/04/17 with <15% bilateral ICA stenosis. Peripheral arterial occlusive disease 521296075 I73.9 Previously , unable to obtain BP either arm by stethoscop e but patient not dizzy. Pulse palpable but diminished in arms. By Doppler, SBP 95 11/04/17. Obtained bilateral upper extremity arterial Doppler 11/04/17 to evaluate for PAD, possibly related to thrombus, which revealed patent arteries, with bilateral brachial artery pressures 95. Dyslipidemia [id number] E 78.5 LDL 106. Needs to keep LDL less than 70, and HDL more than 40. Began atorvastat in 40 mg qHS 11/01/17 but patient had muscle pains. Patient was tolerating Livalo subsequent ly, but insurance no longer covers. Obtained FLP 04/11/18 with LDL 78 while on Livalo 2 mg qHS. Changed to Crestor 10 mg qHS 05/30/18. Had 07/04/18 lipid panel: LDL 70. Tobacco de pendence syndrome [id number] F17.200 Cessation critical. Has quit tobacco. Pre-surger y evaluation [id number] Z01.818 Patient had 2 teeth extracted or repaired with crown. There is no cardiac contraindi cation for the procedure. The planned procedure would be within acceptable risk. {{ Patient may stop taking aspirin and Plavix five (5) days prior to the procedure. *}}Would continue Eliquis if at all possible given thrombus in left ventricle and in LAD coronary artery noted 10/2017, with risk of stroke and PA off Eliquis in setting of lupus anticoagul ant. [id number] Melvin Alvarado [facility] [address] [place] [address] 01/09/2019 11:45:13 01/09/2019 13:48:07 Acute non-ST segment elevation myocardial infarction [id number] I21.4 10/13/17 at [facility], with LAD thrombus. Had ECHO on 10/13/17 showing mild concentric left ventricula r hypertroph y. Normal left ventricula r size. Left ventricula r systolic function at the lower limit of normal. Ejection fraction is visually estimated at 50%. Had akinesis of mid to apical anterolate ral wall and hypokinesi s of mid anterior to mid inferolate ral wall. On Metoprolol Tartrate, Aspirin 81 mg and Eliquis 5 mg twice daily.. Began Plavix 75mg qd 11/01/17. 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 Had CVA on coumadin and on Lovenox previously . Patient instructed that medication regimen not safe in . Recommende d cardiac rehab but patient has transporta tion issues. For resting HR 97, increased to metoprolol tartrate 25 mg bid 02/14/18 but with profound fatigue. Changed to metoprolol succinate 25 mg qd 03/21/18. Increased to metoprolol succinate 50 mg qd given elevated resting HR 05/30/18. Began lisinopril 5 mg qd 02/14/18, a few days after increase in metoprolol . Had 04/11/18: Na 137 , K 4.7 ,CL 104 ,CO2 25 ,GLU 85, BUN 12 ,CR 0.92, Mg 2.0. BP monitor. Obtained CBC with normal hgb 07/2018 given heavy periods. ECHO showed low normal LV systolic function. cont meds Cerebrovas cular accident [id number] I63.9 CVA x4, 9626-4499. Continue Aspirin 81 mg and Eliquis 5 mg twice daily. Began Plavix 75mg qd 11/01/17. Obtained Carotid U/S 11/04/17 with <15% bilateral ICA stenosis. Peripheral arterial occlusive disease [id number] I73.9 Previously , unable to obtain BP either arm by stethoscop e but patient not dizzy. Pulse palpable but diminished in arms. By Doppler, SBP 95 11/04/17. Obtained bilateral upper extremity arterial Doppler 11/04/17 to evaluate for PAD, possibly related to thrombus, which revealed patent arteries, with bilateral brachial artery pressures 95. Dyslipidemia 368808732 E 78.5 LDL 106. Needs to keep LDL less than 70, and HDL more than 40. Began atorvastat in 40 mg qHS 11/01/17 but patient had muscle pains. Patient was tolerating Livalo subsequent ly, but insurance no longer covers. Obtained FLP 04/11/18 with LDL 78 while on Livalo 2 mg qHS. Changed to Crestor 10 mg qHS 05/30/18. Had 07/04/18 lipid panel: LDL 70. Tobacco de pendence syndrome 65626119 F17.200 Cessation critical. Has quit tobacco. Pre-surger y evaluation [id number] Z01.818 Patient had 2 teeth extracted or repaired with crown. There is no cardiac contraindi cation for the procedure. The planned procedure would be within acceptable risk. {{ Patient may stop taking aspirin and Plavix five (5) days prior to the procedure. *}}Would continue Eliquis if at all possible given thrombus in left ventricle and in LAD coronary artery noted 10/2017, with risk of stroke and PA off Eliquis in setting of lupus anticoagul ant. [id number] [facility] [place] [address] 04/03/2019 12:46:25 04/03/2019 13:32:05 Acute non-ST segment elevation myocardial infarction [id number] I21.4 10/13/17 at [facility], with LAD thrombus. Follow up echo in Sep with normal EF. Continue Metoprolol and Lisinopril . Had ECHO on 10/13/17 showing mild concentric left ventricula r hypertroph y. Normal left ventricula r size. Left ventricula r systolic function at the lower limit of normal. Ejection fraction is visually estimated at 50%. Had akinesis of mid to apical anterolate ral wall and hypokinesi s of mid anterior to mid inferolate ral wall. On Metoprolol Tartrate, Aspirin 81 mg and Eliquis 5 mg twice daily.. Began Plavix 75mg qd 11/01/17. 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 Had CVA on coumadin and on Lovenox previously . Patient instructed that medication regimen not safe in . Recommende d cardiac rehab but patient has transporta tion issues. For resting HR 97, increased to metoprolol tartrate 25 mg bid 02/14/18 but with profound fatigue. Changed to metoprolol succinate 25 mg qd 03/21/18. Increased to metoprolol succinate 50 mg qd given elevated resting HR 05/30/18. Began lisinopril 5 mg qd 02/14/18, a few days after increase in metoprolol . Had 04/11/18: Na 137 , K 4.7 ,CL 104 ,CO2 25 ,GLU 85, BUN 12 ,CR 0.92, Mg 2.0. BP monitor. Obtained CBC with normal hgb 07/2018 given heavy periods. ECHO showed low normal LV systolic function. cont meds Cerebrovas cular accident [id number] I63.9 CVA x4, 6691-1482. Continue Aspirin 81 mg and Eliquis 5 mg twice daily. Began Plavix 75mg qd 11/01/17. Obtained Carotid U/S 11/04/17 with <15% bilateral ICA stenosis. Peripheral arterial occlusive disease 332525127 I73.9 Previously , unable to obtain BP either arm by stethoscop e but patient not dizzy. Pulse palpable but diminished in arms. By Doppler, SBP 95 11/04/17. Obtained bilateral upper extremity arterial Doppler 11/04/17 to evaluate for PAD, possibly related to thrombus, which revealed patent arteries, with bilateral brachial artery pressures 95. Dyslipidemia 798738923 E 78.5 Changed to Crestor 10 mg qHS 05/30/18. Had 07/04/18 lipid panel: LDL 70. Tobacco de pendence syndrome 75535133 F17.200 Cessation critical. Has quit tobacco. [id number] Fernanda Alvarenga [facility] [address] [place] [address] 10/23/2019 16:35:01 10/23/2019 18:44:55 Acute non-ST segment elevation myocardial infarction [id number] I21.4 10/13/17 at [facility], with LAD thrombus.C ontinue Eliquis, Plavix and ASA.Consid er D/C ASA to decrease risk of bleed. Follow up echo in Sep with normal EF. Continue Metoprolol and Lisinopril . Had ECHO on 10/13/17 showing mild concentric left ventricula r hypertroph y. Normal left ventricula r size. Left ventricula r systolic function at the lower limit of normal. Ejection fraction is visually estimated at 50%. Had akinesis of mid to apical anterolate ral wall and hypokinesi s of mid anterior to mid inferolate ral wall. On Metoprolol Tartrate, Aspirin 81 mg and Eliquis 5 mg twice daily.. Began Plavix 75mg qd 11/01/17. 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 Had CVA on coumadin and on Lovenox previously . Patient instructed that medication regimen not safe in . Recommende d cardiac rehab but patient has transporta tion issues. For resting HR 97, increased to metoprolol tartrate 25 mg bid 02/14/18 but with profound fatigue. Changed to metoprolol succinate 25 mg qd 03/21/18. Increased to metoprolol succinate 50 mg qd given elevated resting HR 05/30/18. Began lisinopril 5 mg qd 02/14/18, a few days after increase in metoprolol . Had 04/11/18: Na 137 , K 4.7 ,CL 104 ,CO2 25 ,GLU 85, BUN 12 ,CR 0.92, Mg 2.0. BP monitor. Obtained CBC with normal hgb 07/2018 given heavy periods. ECHO showed low normal LV systolic function. cont meds Cerebrovas cular accident 295288818 I63.9 CVA x4, 5272-2375. Continue Aspirin 81 mg and Eliquis 5 mg twice daily. Began Plavix 75mg qd 11/01/17. Obtained Carotid U/S 11/04/17 with <15% bilateral ICA stenosis. Peripheral arterial occlusive disease 189127762 I73.9 BP difficult to obtain either arm by stethoscop e but patient not dizzy. Obtained bilateral upper extremity arterial Doppler 11/04/17 to evaluate for PAD, possibly related to thrombus, which revealed patent arteries, with bilateral brachial artery pressures 95. Dyslipidemia 256339292 E 78.5 Changed to Crestor 10 mg qHS 05/30/18. Had 07/04/18 lipid panel: LDL 70. Tobacco de pendence syndrome 37168307 F17.200 Cessation critical. [address] Fernanda Alvarenga [facility] [address] [place] [address] 05/06/2020 16:48:33 05/07/2020 13:40:10 Cerebrovascular accident 522239360 I63.9 CVA x4, 7376-5690. Continue triple therapyAsp irin 81 mg , plavix 75 and Eliquis 5 mg twice daily. Obtained Carotid U/S 11/04/17 with <15% bilateral ICA stenosis. Acute non- ST segment elevation myocardial infarction [id number] I21.4 10/13/17 at [facility], with LAD thrombus.C ontinue Eliquis, Plavix and ASA.She had hypokineti c apex but overall EF is normal. Continue Metoprolol and Lisinopril . Had ECHO on 10/13/17 showing mild concentric left ventricula r hypertroph y. Normal left ventricula r size. Left ventricula r systolic function at the lower limit of normal. Ejection fraction is visually estimated at 50%. Had akinesis of mid to apical anterolate ral wall and hypokinesi s of mid anterior to mid inferolate ral wall. On Metoprolol Tartrate, Aspirin 81 mg and Eliquis 5 mg twice daily.. Began Plavix 75mg qd 11/01/17. 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 Had CVA on coumadin and on Lovenox previously . Patient instructed that medication regimen not safe in . Recommende d cardiac rehab but patient has transporta tion issues. For resting HR 97, increased to metoprolol tartrate 25 mg bid 02/14/18 but with profound fatigue. Changed to metoprolol succinate 25 mg qd 03/21/18. Increased to metoprolol succinate 50 mg qd given elevated resting HR 05/30/18. Began lisinopril 5 mg qd 02/14/18, a few days after increase in metoprolol . Had 04/11/18: Na 137 , K 4.7 ,CL 104 ,CO2 25 ,GLU 85, BUN 12 ,CR 0.92, Mg 2.0. BP monitor. Obtained CBC with normal hgb 07/2018 given heavy periods. ECHO showed low normal LV systolic function. cont meds Peripheral arterial occlusive disease 821326439 I73.9 BP difficult to obtain either arm by stethoscop e Obtained bilateral upper extremity arterial Doppler 11/04/17 to evaluate for PAD, which revealed patent arteries, with bilateral brachial artery pressures 95. Dyslipidemia 996673505 E 78.5 Changed to Crestor 10 mg qHS 05/30/18. Had 07/04/18 lipid panel: LDL 70. Tobacco de pendence syndrome 94802302 F17.200 Cessation critical. [id number] nuzhat marroquin [facility] [address] [place] [address] 11/19/2020 16:55:52 11/20/2020 11:35:05 Dyslipidemia 918815089 E78.5 Needs FLP none since 2019Lipids : LDL . HDL . TC . TG . AST . ALT . DATED Patient's hyperlipid emia has been well-contr olled Patient was advised to eat a low-fat diet. Patient is tolerating , without difficulty , the current medication s. I have not made changes to the current regimen. Recomended LDL <=70, to increase HDL with increased activity mild exercise Peripheral arterial occlusive disease 005923357 I73.9 See Carotid stenosis Cerebrovas cular accident 351369225 I63.9 CVA x4, 1896-6569. Continue triple therapyAsp irin 81 mg , plavix 75 and Eliquis 5 mg twice daily.Zaldivar tid U/S 11/04/17 with <15% bilateral ICA stenosis.n o new changeNeed s COvid-19 vaccine Acute non- ST segment elevation myocardial infarction [id number] I21.4 10/13/17 at [facility], with LAD thrombus. Continue Eliquis, Plavix and ASA. She had hypokineti c apex but overall EF is normal. Continue Metoprolol and Lisinopril .Aspirin 81 mg and Eliquis 5 mg twice daily..Beg an Plavix 75mg qd 11/01/17. Had ECHO on 10/13/17 showing mild concentric left ventricula r hypertroph y. Normal left ventricula r size. Left ventricula r systolic function at the lower limit of normal. Ejection fraction is visually estimated at 50%. Had akinesis of mid to apical anterolate ral wall and hypokinesi s of mid anterior to mid inferolate ral wall. 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 Had CVA on coumadin and on Lovenox previously . -Need repeat ECHO to determine LVEF and thrombus statusNo change in meds at this time -Perform a walking stress test treadmill to look for ischemia with underlying CAD Treadmill Myoview Stress test, has high Irving Risk score. Has Known CAD, or CAD risk equivalent . To look for any ischemia. -Repeat FLP continue rosuvastat in Tobacco de pendence syndrome 73414060 F17.200 Cessation critical. [id number] Gene Archer MD [facility] [place] [address] 12/31/2020 16:58:24 12/31/2020 17:32:23 Dyslipidemia 870683451 E78.5 Needs FLP none since 2019Lipids : LDL . HDL . TC . TG . AST . ALT . DATED Patient's hyperlipid emia has been well-contr olled Patient was advised to eat a low-fat diet. Patient is tolerating , without difficulty , the current medication s. I have not made changes to the current regimen.Re comended LDL <=70, to increase HDL with increased activity mild exercise Peripheral arterial occlusive disease 836710237 I73.9 See Carotid stenosis Cerebrovas cular accident 910515328 I63.9 CVA x4, 5716-4369. Continue triple therapyAsp irin 81 mg , plavix 75 and Eliquis 5 mg twice daily.Zaldivar tid U/S 11/04/17 with <15% bilateral ICA stenosis.n o new changeNeed s COvid-19 vaccine Acute non- ST segment elevation myocardial infarction [id number] I21.4 10/13/17 at [facility], with LAD thrombus. Continue Eliquis, Plavix and ASA. -Repeat FLP continue rosuvastat in Tobacco de pendence syndrome 20763308 F17.200 Cessation critical. Coronary arteriosclerosis 45695577 I25.10 with abnormal stress testWill arrange for cardiac CTA, the patient will need further investigat ions, and would benefit from CT to look for any Coronary Artery Disease [address]99[address] Gene Archer MD [facility] [address] [place] [address] 05/13/2021 15:24:15 05/13/2021 16:00:36 Dyslipidemia 832160586 E78.5 Needs FLP none since 2019Lipids : LDL 65. HDL . TC . TG . AST . ALT . DATED 02/11/21 Patient's hyperlipid emia has been well-contr olled Patient was advised to eat a low-fat diet. Patient is tolerating , without difficulty , the current medication s. I have not made changes to the current regimen.Re comended LDL <=70, to increase HDL with increased activity mild exercise Peripheral arterial occlusive disease 940839192 I73.9 See Carotid stenosis Cerebrovas cular accident 772645130 I63.9 CVA x4, 6112-0431. Continue triple therapyAsp irin 81 mg , plavix 75 and Eliquis 5 mg twice daily.Zaldivar tid U/S 11/04/17 with <15% bilateral ICA stenosis.n o new changeNeed s COvid-19 vaccine Acute non- ST segment elevation myocardial infarction [id number] I21.4 10/13/17 at [facility], with LAD thrombus. Continue Eliquis, Plavix and ASA. -Repeat FLP continue rosuvastat in Tobacco de pendence syndrome 49897784 F17.200 Cessation critical. Coronary arteriosclerosis 68332445 I25.10 with abnormal stress testMaxima l medical treatment [id number] Gene Archer MD [facility] [address] [place] [address] 12/25/2021 16:48:09 12/25/2021 17:43:19 Dyslipidemia 265322890 E78.5 Needs FLP none since 2019Lipids : LDL 65. HDL . TC . TG . AST . ALT . DATED 02/11/21 Patient's hyperlipid emia has been well-contr olled Patient was advised to eat a low-fat diet. Patient is tolerating , without difficulty , the current medication s. I have not made changes to the current regimen.Re comended LDL <=70, to increase HDL with increased activity mild exercise Peripheral arterial occlusive disease [id number] I73.9 See Carotid stenosis Cerebrovas cular accident [id number] I63.9 CVA x4, 9100-5566. Continue triple therapyAsp irin 81 mg , plavix 75 and Eliquis 5 mg twice daily.Zaldivar tid U/S 11/04/17 with <15% bilateral ICA stenosis.n o new changeNeed s COvid-19 vaccine Acute non- ST segment elevation myocardial infarction [id number] I21.4 10/13/17 at [facility], with LAD thrombus. Continue Eliquis, Plavix and ASA. -Repeat FLP continue rosuvastat in Tobacco de pendence syndrome [id number] F17.200 Cessation critical. Coronary arteriosclerosis [id number] I25.10 with abnormal stress testMax[facility] [id number] Gene Archer MD [facility] [facility] [address] [place] [address] 06/25/2022 16:44:56 06/25/2022 17:30:01 Dyslipidemia [id number] E78.5 Needs FLP none since 2018Lipids : LDL 65. HDL . TC . TG . AST . ALT . DATED 02/11/21 Peripheral arterial occlusive disease [id number] I73.9 See Carotid stenosis Cerebrovas cular accident [id number] I63.9 CVA x4, 6761-9425. Continue triple therapyAsp irin 81 mg , plavix 75 and Eliquis 5 mg twice daily.Zaldivar tid U/S 11/04/17 with <15% bilateral ICA stenosis.n o new changeNeed s COvid-19 vaccine Acute non- ST segment elevation myocardial infarction [id number] I21.4 10/13/17 at [facility], with LAD thrombus. Continue Eliquis, Plavix and ASA. -Repeat FLP continue rosuvastat in Tobacco de pendence syndrome [id number] F17.200 Cessation critical. [id number] Rebecca Valente [place] [facility] [address] [place] [address] 09/07/2023 16:52:31 09/07/2023 17:41:30 Dyslipidemia [id number] E78.5 Needs FLP none since 2019Lipids : LDL 65. HDL . TC . TG . AST . ALT . DATED 02/11/21 Peripheral arterial occlusive disease 972327599 I73.9 See Carotid stenosis Cerebrovas cular accident [id number] I63.9 CVA x4, 3290-2761. Continue triple therapyAsp irin 81 mg , plavix 75 and Eliquis 5 mg twice daily.Zaldivar tid U/S 11/04/17 with <15% bilateral ICA stenosis.n o new changeNeed s COvid-19 vaccine Acute non- ST segment elevation myocardial infarction [id number] I21.4 10/13/17 at [facility], with LAD thrombus. Continue Eliquis, Plavix and ASA. -Repeat FLP continue rosuvastat inObtain echo to evaluate for structural /functiona l disease. Tobacco de pendence syndrome [id number] F17.200 Cessation critical. Atypical chest pain [id number] 28242 R07.89 Treadmill Myoview Stress test, has high Irving Risk score. Has Known CAD, or CAD risk equivalent . To look for any ischemia. Coronary arteriosclerosis [id number] I25.10 with abnormal stress test in 2020Treadm ill Myoview Stress test, has high Irving Risk score. Has Known CAD, or CAD risk equivalent . To look for any ischemia. Health Concerns Section Related Observation LastModified by Organization Detai ls LastModified Time None Recorded Concern Status LastModified by Organization Details LastModified Time None Recorded Advance Directives Directive None Recorded Payers Encounter Date Sequence Insurance Name Policy Number Policy Rutherford Covered Member ID Rutherford Member ID Guarantor Name 12/31/2020 1 [place] [id number] 2 Reinaldo Zohaib [id number] Alise Zohaib 05/13/2021 1 [place] [id number] 2 Reinaldo Zohaib [id number] Alise Zohaib 12/25/2021 1 [place] [id number] 2 Reinaldo Zohaib [id number] Alise Zohaib 06/25/2022 1 [place] [id number] 2 Reinaldo Zohaib [id number] Alise Zohaib 09/07/2023 1 [place] [id number] 2 Reinaldo Zohaib [id number] Alise Penny Notes Date Note Type Note Provider Name and Address Organization Details Recorded Time 12/31/2020 text/html 12/31/20CC : Car dia follow up35 year-old white female with 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 She was last seen in the clinic on 11/19/20, since then she feels well, had a positive stress testDenies chest pain.Denies shortness of breath at rest. Has mild dyspnea on exertion.No orthopnea. No PNDs.Denies heart palpitations.Denies dizziness. Denies syncope or near syncope.No ankle or leg edema.No major bleeding events.No reported side effects from medications. Taking medications as prescribed with no missed doses.Denies snoring, daytime somnolence and AM headache.*Last LDL was 70 done on 07/03/18.Pt takes rosuvastatin 10 mg.No known history of coronary artery disease. Has history of myocardial infarction. No history of heart failure. No known history of valvular heart disease. No known arrhythmia.She smokes cigarettes. She was smoking 1 PPD, now decreased to 1 cigarettes per day and starting to switch to non-nicotine vapor.*Had ECHO done in 12/18/20 showed LV chamber size is normal, there is normal global systolic function and contractility.Previous ly:*TTE 10/14/17 : Normal left ventricular systolic function, significant floating echodensity noted close to the mid left ventricular cavity and closed the apex, could be thrombus or portion of the papillary muscle. She has normal mitral valve, normal aortic valve, normal tricuspid valve, normal pulmonic valve. No intracardiac shunts noted.*US, Carotid Artery 11/04/17: Antegrade flow noted in both vertebral arteries. Very mild bilateral internal carotid artery stenosis with less than 15% diameter stenosis.*12/21/18 ECHO: Study quality: Technically difficult. LV chamber size is normal. LV Wall Thickness is Normal. LV systolic function is low normal. The apical septal wall appears moderately hypokinetic. The estimated left ventricle ejection fraction is 50-55% (normal). There is mild thickening of mitral valve anterior leaflet.*Had cardiac cath on 10/14/17 which showed left main was a medium sized artery without significant disease or stenosis, mid LAD showed subtotal occlusion. There was a total occlusion in the distal portion of the LAD with filling defects noted of thrombus. Suction catheter with multiple balloon inflations was attempted. The total occlusion moved downward to the distal 3rd of the LAD but in spite of multiple attempts with a balloon and suction catheter. She still has total occlusion of the area. There was concern that this might be a chronic occlusion.She had strokes while on Coumadin. Has not had any events since on Eliquis. Also on Plavix and ASA. She has gained 6 pounds since last visit. Contributes that to being less active with pandemic. She is down to 4 cigarettes every 3 days. Trying to quit completely.She was at [facility] on 10/13/17 for right sided weakness and blurry vision, with resolution of symptoms. She denied any chest pain, shortness of breath, nausea, vomiting. Her Troponin I was elevated, 5.540. Her EKG was unremarkable. Echo showed anterolateral wall motion abnormality indicative of recent PA.She was discharged on Eliquis 10 mg BID for 7 days, then 5 mg BID, Aspirin 81 mg daily, Metoprolol Tartrate 12.5 mg BID.She continues to have less fatigue and shortness of breath with exertion, improving. Denies any chest pain. She continues to take medication.Previously, she has a history of 4x CVA's from 6743-4143. She was on Lovenox since 2010, but discontinued Lovenox in 2014 after she lost her insurance and could no longer afford it. She has been doing well the last 4 years until now but was no longer on antiocoagulant, but had been on warfarin and Lovenox. She has followed up with multiple neurologists and cardiologists throughout the country while they were in the and no one can determine why she had the multiple CVA's. She has residual weakness on right side.*Had cardiac cath on 10/14/17 which showed left main was a medium sized artery without significant disease or stenosis, mid LAD showed subtotal occlusion. There was a total occlusion in the distal portion of the LAD with filling defects noted of thrombus. Suction catheter with multiple balloon inflations was attempted. The total occlusion moved downward to the distal 3rd of the LAD but in spite of multiple attempts with a balloon and suction catheter. She still has total occlusion of the area. There was concern that this might be a chronic occlusion. *Had ECHO on 10/13/17 showing mild concentric left ventricular hypertrophy. Normal left ventricular size. Left ventricular systolic function at the lower limit of normal. Ejection fraction is visually estimated at 50%. Had akinesis of mid to apical anterolateral wall and hypokinesis of mid anterior to mid inferolateral wall.*Had ELIJAH on 10/14/17 showing normal left ventricular systolic function, significant floating echodensity noted close to the mid left ventricular cavity and close to the apex, could be thrombus or portion of the papillary muscle. She has normal mitral valve, normal aortic valve, normal tricuspid valve, normal pulmonic valve. No intracardiac shunts noted.*Had CT Head on 10/13/17 showing multiple infarcts in the brain, some of which are age-indeterminate and some of which are likely subacute or chronic.Results from this visit, or from the past:12/19/18 GL 86, B 13, CR 0.98, NA 138, K 4.4, CH 105, C02 24, CA 9.5, MG 1.909: Na 138 ,K 4.4, CL 104 ,CO2 24, GLU 86, BUN 13, CR 0.98,07/04/18 / lipid panel, TR 89, HDL 36l, LDL : Na 137, K 4.4 ,CL 103, CO2 22, GLU 87, BUN 11, CR 0.97,AST 16, ALT 21, CK : Na 137 , K 4.7 ,CL 104 ,CO2 25 ,GLU 85, BUN 12 ,CR 0.92,04/11/18: TC 129 ,TG 116 ,HDL 31 ,LDL 78 ,10/13/17: Na 142, K 4.2, Cl 105, CO2 27, GLU 99, BUN 11, Cr 1.00, TSH 5.620, FT4 1.43, TT3 1.537: TC 169, TG 123, HDL 28, LDL 11075/ EKG: Sinus tachycardia. Low voltage, chest leads. Poor R progression in chest leads.EKG 11/07/18 NSR. Low voltage chest leads. Inferior myocardial infarction, age undetermined.EKG 08/08/2018 sinus tachycardia low voltage chest leads inferior myocardial infarction age undeterminedEKG 05/30/18 :Sinus tachycardia , Low voltage , chest leads , Inferior myocardial infarction , age undetermined , Poor R progression in chest leads.EK02/14/18 NSR, PVC's. Inferior myocardial infarction, age undetermind.EKG 11/01/2017: Low voltage, chest leads; inferior myocardial infarction, age undetermined; Poor R progression in chest leads; Inverted T waves, anterior leads12/21/18 ECHO: Study quality: Technically difficult. LV chamber size is normal. LV Wall Thickness is Normal. LV systolic function is low normal. The apical septal wall appears moderately hypokinetic. The estimated left ventricle ejection fraction is 50-55% (normal). There is mild thickening of mitral valve anterior leaflet.*US, Duplex, Arterial, Upper Extremity 11/04/17: Bilateral subclavian, axillary and brachial arteries patent and triphasic. Bilateral brachial pressures 95. Pictures with carotid study.*ELIJAH 10/14/17 : Normal left ventricular systolic function, significant floating echodensity noted close to the mid left ventricular cavity and closed the apex, could be thrombus or portion of the papillary muscle. She has normal mitral valve, normal aortic valve, normal tricuspid valve, normal pulmonic valve. No intracardiac shunts noted.*ECHO 10/13/17: Mild concentric left ventricular hypertrophy. Normal left ventricular size. Left ventricular systolic function at the lower limit of normal. Ejection fraction is visually estimated at 50%. Had akinesis of mid to apical anterolateral wall and hypokinesis of mid anterior to mid inferolateral wall.*CT Head on 10/13/17 showing multiple infarcts in the brain, some of which are age-indeterminate and some of which are likely subacute or chronic.*cardiac cath on 10/14/17 which showed left main was a medium sized artery without significant disease or stenosis, mid LAD showed subtotal occlusion. There was a total occlusion in the distal portion of the LAD with filling defects noted of thrombus. Suction catheter with multiple balloon inflations was attempted. The total occlusion moved downward to the distal 3rd of the LAD but in spite of multiple attempts with a balloon and suction catheter. She still has total occlusion of the area. There was concern that this might be a chronic occlusion. 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 She was last seen in the clinic on 12/31/20, since then she has right leg weaknessShe denies ER visits and hospitalizations since she was last seen. Denies chest pain.Denies shortness of breath at rest. Has mild dyspnea on exertion.No orthopnea. No PNDs.Denies heart palpitations.Denies dizziness. Denies syncope or near syncope.No ankle or leg edema.No major bleeding events.No reported side effects from medications. Taking medications as prescribed with no missed doses.Denies snoring, daytime somnolence and AM headache.No known history of coronary artery disease. Has history of myocardial infarction. No history of heart failure. No known history of valvular heart disease. No known arrhythmia.*Last LDL was 65 done on 11/23/20 .Pt takes rosuvastatin 10 mg. She smokes cigarettes. She was smoking 1 PPD, now decreased to 1 cigarettes per day and starting to switch to non-nicotine vapor. 07/17/20:Na 139,k 4.1,Cl 104,Co2 24,Glu 93,Bun 09,Cr 1.00.11/23/20:TC 124,TG 122,HDL 32,LDL 65,Ast 34,Alt 36,CK 78.11/23/20:WBC 11.3,RBC 5.19,Hgb 16.0,Hct 49.3,Plt 357. Previously:She had a positive stress test *Had ECHO done in 12/18/20 showed LV chamber size is normal, there is normal global systolic function and contractility. *TTE 10/14/17 : Normal left ventricular systolic function, significant floating echodensity noted close to the mid left ventricular cavity and closed the apex, could be thrombus or portion of the papillary muscle. She has normal mitral valve, normal aortic valve, normal tricuspid valve, normal pulmonic valve. No intracardiac shunts noted. *US, Carotid Artery 11/04/17: Antegrade flow noted in both vertebral arteries. Very mild bilateral internal carotid artery stenosis with less than 15% diameter stenosis. *Had cardiac cath on 10/14/17 which showed left main was a medium sized artery without significant disease or stenosis, mid LAD showed subtotal occlusion. There was a total occlusion in the distal portion of the LAD with filling defects noted of thrombus. Suction catheter with multiple balloon inflations was attempted. The total occlusion moved downward to the distal 3rd of the LAD but in spite of multiple attempts with a balloon and suction catheter. She still has total occlusion of the area. There was concern that this might be a chronic occlusion.She had strokes while on Coumadin. Has not had any events since on Eliquis. Also on Plavix and ASA. She has gained 6 pounds since last visit. Contributes that to being less active with pandemic. She is down to 4 cigarettes every 3 days. Trying to quit completely.She was at [facility] on 10/13/17 for right sided weakness and blurry vision, with resolution of symptoms. She denied any chest pain, shortness of breath, nausea, vomiting. Her Troponin I was elevated, 5.540. Her EKG was unremarkable. Echo showed anterolateral wall motion abnormality indicative of recent PA.She was discharged on Eliquis 10 mg BID for 7 days, then 5 mg BID, Aspirin 81 mg daily, Metoprolol Tartrate 12.5 mg BID. She continues to have less fatigue and shortness of breath with exertion, improving. Denies any chest pain. She continues to take medication. Previously, she has a history of 4x CVA's from 0830-4199. She was on Lovenox since 2010, but discontinued Lovenox in 2014 after she lost her insurance and could no longer afford it. She has been doing well the last 4 years until now but was no longer on antiocoagulant, but had been on warfarin and Lovenox. She has followed up with multiple neurologists and cardiologists throughout the country while they were in the and no one can determine why she had the multiple CVA's. She has residual weakness on right side. *Had ECHO on 10/13/17 showing mild concentric left ventricular hypertrophy. Normal left ventricular size. Left ventricular systolic function at the lower limit of normal. Ejection fraction is visually estimated at 50%. Had akinesis of mid to apical anterolateral wall and hypokinesis of mid anterior to mid inferolateral wall. *Had ELIJAH on 10/14/17 showing normal left ventricular systolic function, significant floating echodensity noted close to the mid left ventricular cavity and close to the apex, could be thrombus or portion of the papillary muscle. She has normal mitral valve, normal aortic valve, normal tricuspid valve, normal pulmonic valve. No intracardiac shunts noted. *Had CT Head on 10/13/17 showing multiple infarcts in the brain, some of which are age-indeterminate and some of which are likely subacute or chronic. Results from this visit, or from the past:12/19/18 GL 86, B 13, CR 0.98, NA 138, K 4.4, CH 105, C02 24, CA 9.5, MG 1.909: Na 138 ,K 4.4, CL 104 ,CO2 24, GLU 86, BUN 13, CR 0.98,07/04/18 / lipid panel, TR 89, HDL 36l, LDL : Na 137, K 4.4 ,CL 103, CO2 22, GLU 87, BUN 11, CR 0.97,AST 16, ALT 21, CK : Na 137 , K 4.7 ,CL 104 ,CO2 25 ,GLU 85, BUN 12 ,CR 0.92,04/11/18: TC 129 ,TG 116 ,HDL 31 ,LDL 78 ,10/13/17: Na 142, K 4.2, Cl 105, CO2 27, GLU 99, BUN 11, Cr 1.00, TSH 5.620, FT4 1.43, TT3 1.537: TC 169, TG 123, HDL 28, LDL 24346/ EKG: Sinus tachycardia. Low voltage, chest leads. Poor R progression in chest leads.EKG 11/07/18 NSR. Low voltage chest leads. Inferior myocardial infarction, age undetermined.EKG 08/08/2018 sinus tachycardia low voltage chest leads inferior myocardial infarction age undeterminedEKG 05/30/18 :Sinus tachycardia , Low voltage , chest leads , Inferior myocardial infarction , age undetermined , Poor R progression in chest leads.EK02/14/18 NSR, PVC's. Inferior myocardial infarction, age undetermind.EKG 11/01/2017: Low voltage, chest leads; inferior myocardial infarction, age undetermined; Poor R progression in chest leads; Inverted T waves, anterior leads12/21/18 ECHO: Study quality: Technically difficult. LV chamber size is normal. LV Wall Thickness is Normal. LV systolic function is low normal. The apical septal wall appears moderately hypokinetic. The estimated left ventricle ejection fraction is 50-55% (normal). There is mild thickening of mitral valve anterior leaflet.*US, Duplex, Arterial, Upper Extremity 11/04/17: Bilateral subclavian, axillary and brachial arteries patent and triphasic. Bilateral brachial pressures 95. Pictures with carotid study.*ELIJAH 10/14/17 : Normal left ventricular systolic function, significant floating echodensity noted close to the mid left ventricular cavity and closed the apex, could be thrombus or portion of the papillary muscle. She has normal mitral valve, normal aortic valve, normal tricuspid valve, normal pulmonic valve. No intracardiac shunts noted.*ECHO 10/13/17: Mild concentric left ventricular hypertrophy. Normal left ventricular size. Left ventricular systolic function at the lower limit of normal. Ejection fraction is visually estimated at 50%. Had akinesis of mid to apical anterolateral wall and hypokinesis of mid anterior to mid inferolateral wall.*CT Head on 10/13/17 showing multiple infarcts in the brain, some of which are age-indeterminate and some of which are likely subacute or chronic.*cardiac cath on 10/14/17 which showed left main was a medium sized artery without significant disease or stenosis, mid LAD showed subtotal occlusion. There was a total occlusion in the distal portion of the LAD with filling defects noted of thrombus. Suction catheter with multiple balloon inflations was attempted. The total occlusion moved downward to the distal 3rd of the LAD but in spite of multiple attempts with a balloon and suction catheter. She still has total occlusion of the area. There was concern that this might be a chronic occlusion. Gene Archer MD [address] [facility], [place], [address], [place] [facility] 05/13/2021 15:58:59 12/25/2021 text/html 12/25/21CC : Car diac follow up, dyspnea on [id number] year-old white female with history of CVA x5 since 2010 (with right sided weakness), determined by CT and Symptoms , CAD s/p NSTEMI 10/13/17 in setting of LV and LAD thrombus, active tobacco dependence,possible lupus anticoagulant, presents for 6 month follow up. She was last seen in the clinic on 06/02/21, since then she is now active with bikingShe denies ER visits and hospitalizations since she was last seen. Denies chest pain.Denies shortness of breath at rest. Has mild dyspnea on exertion.No orthopnea. No PNDs.Denies heart palpitations.Denies dizziness. Denies syncope or near syncope.No ankle or leg edema.No major bleeding events.No reported side effects from medications. Taking medications as prescribed with no missed doses.Denies snoring, daytime somnolence and AM headache.No known history of coronary artery disease. Has history of myocardial infarction. No history of heart failure. No known history of valvular heart disease. No known arrhythmia.*Last LDL was 65 done on 11/23/20 .Pt takes rosuvastatin 10 mg. Previously:She smokes cigarettes. She was smoking 1 PPD, now decreased to 1 cigarettes per day and starting to switch to non-nicotine vapor. 07/17/20:Na 139,k 4.1,Cl 104,Co2 24,Glu 93,Bun 09,Cr 1.00.11/23/20:TC 124,TG 122,HDL 32,LDL 65,Ast 34,Alt 36,CK 78.11/23/20:WBC 11.3,RBC 5.19,Hgb 16.0,Hct 49.3,Plt 357. She had a positive stress test *Had ECHO done in 12/18/20 showed LV chamber size is normal, there is normal global systolic function and contractility. *TTE 10/14/17 : Normal left ventricular systolic function, significant floating echodensity noted close to the mid left ventricular cavity and closed the apex, could be thrombus or portion of the papillary muscle. She has normal mitral valve, normal aortic valve, normal tricuspid valve, normal pulmonic valve. No intracardiac shunts noted. *US, Carotid Artery 11/04/17: Antegrade flow noted in both vertebral arteries. Very mild bilateral internal carotid artery stenosis with less than 15% diameter stenosis. *Had cardiac cath on 10/14/17 which showed left main was a medium sized artery without significant disease or stenosis, mid LAD showed subtotal occlusion. There was a total occlusion in the distal portion of the LAD with filling defects noted of thrombus. Suction catheter with multiple balloon inflations was attempted. The total occlusion moved downward to the distal 3rd of the LAD but in spite of multiple attempts with a balloon and suction catheter. She still has total occlusion of the area. There was concern that this might be a chronic occlusion.She had strokes while on Coumadin. Has not had any events since on Eliquis. Also on Plavix and ASA. She has gained 6 pounds since last visit. Contributes that to being less active with pandemic. She is down to 4 cigarettes every 3 days. Trying to quit completely.She was at [facility] on 10/13/17 for right sided weakness and blurry vision, with resolution of symptoms. She denied any chest pain, shortness of breath, nausea, vomiting. Her Troponin I was elevated, 5.540. Her EKG was unremarkable. Echo showed anterolateral wall motion abnormality indicative of recent PA.She was discharged on Eliquis 10 mg BID for 7 days, then 5 mg BID, Aspirin 81 mg daily, Metoprolol Tartrate 12.5 mg BID. She continues to have less fatigue and shortness of breath with exertion, improving. Denies any chest pain. She continues to take medication. Previously, she has a history of 4x CVA's from 1858-8302. She was on Lovenox since 2010, but discontinued Lovenox in 2014 after she lost her insurance and could no longer afford it. She has been doing well the last 4 years until now but was no longer on antiocoagulant, but had been on warfarin and Lovenox. She has followed up with multiple neurologists and cardiologists throughout the country while they were in the and no one can determine why she had the multiple CVA's. She has residual weakness on right side. *Had ECHO on 10/13/17 showing mild concentric left ventricular hypertrophy. Normal left ventricular size. Left ventricular systolic function at the lower limit of normal. Ejection fraction is visually estimated at 50%. Had akinesis of mid to apical anterolateral wall and hypokinesis of mid anterior to mid inferolateral wall. *Had ELIJAH on 10/14/17 showing normal left ventricular systolic function, significant floating echodensity noted close to the mid left ventricular cavity and close to the apex, could be thrombus or portion of the papillary muscle. She has normal mitral valve, normal aortic valve, normal tricuspid valve, normal pulmonic valve. No intracardiac shunts noted. *Had CT Head on 10/13/17 showing multiple infarcts in the brain, some of which are age-indeterminate and some of which are likely subacute or chronic. Results from this visit, or from the past:12/19/18 GL 86, B 13, CR 0.98, NA 138, K 4.4, CH 105, C02 24, CA 9.5, MG 1.909: Na 138 ,K 4.4, CL 104 ,CO2 24, GLU 86, BUN 13, CR 0.98,07/04/18 / lipid panel, TR 89, HDL 36l, LDL : Na 137, K 4.4 ,CL 103, CO2 22, GLU 87, BUN 11, CR 0.97,AST 16, ALT 21, CK : Na 137 , K 4.7 ,CL 104 ,CO2 25 ,GLU 85, BUN 12 ,CR 0.92,04/11/18: TC 129 ,TG 116 ,HDL 31 ,LDL 78 ,10/13/17: Na 142, K 4.2, Cl 105, CO2 27, GLU 99, BUN 11, Cr 1.00, TSH 5.620, FT4 1.43, TT3 1.537: TC 169, TG 123, HDL 28, LDL 69757/ EKG: Sinus tachycardia. Low voltage, chest leads. Poor R progression in chest leads.EKG 11/07/18 NSR. Low voltage chest leads. Inferior myocardial infarction, age undetermined.EKG 08/08/2018 sinus tachycardia low voltage chest leads inferior myocardial infarction age undeterminedEKG 05/30/18 :Sinus tachycardia , Low voltage , chest leads , Inferior myocardial infarction , age undetermined , Poor R progression in chest leads.EK02/14/18 NSR, PVC's. Inferior myocardial infarction, age undetermind.EKG 11/01/2017: Low voltage, chest leads; inferior myocardial infarction, age undetermined; Poor R progression in chest leads; Inverted T waves, anterior leads12/21/18 ECHO: Study quality: Technically difficult. LV chamber size is normal. LV Wall Thickness is Normal. LV systolic function is low normal. The apical septal wall appears moderately hypokinetic. The estimated left ventricle ejection fraction is 50-55% (normal). There is mild thickening of mitral valve anterior leaflet.*US, Duplex, Arterial, Upper Extremity 11/04/17: Bilateral subclavian, axillary and brachial arteries patent and triphasic. Bilateral brachial pressures 95. Pictures with carotid study.*ELIJAH 10/14/17 : Normal left ventricular systolic function, significant floating echodensity noted close to the mid left ventricular cavity and closed the apex, could be thrombus or portion of the papillary muscle. She has normal mitral valve, normal aortic valve, normal tricuspid valve, normal pulmonic valve. No intracardiac shunts noted.*ECHO 10/13/17: Mild concentric left ventricular hypertrophy. Normal left ventricular size. Left ventricular systolic function at the lower limit of normal. Ejection fraction is visually estimated at 50%. Had akinesis of mid to apical anterolateral wall and hypokinesis of mid anterior to mid inferolateral wall.*CT Head on 10/13/17 showing multiple infarcts in the brain, some of which are age-indeterminate and some of which are likely subacute or chronic.*cardiac cath on 10/14/17 which showed left main was a medium sized artery without significant disease or stenosis, mid LAD showed subtotal occlusion. There was a total occlusion in the distal portion of the LAD with filling defects noted of thrombus. Suction catheter with multiple balloon inflations was attempted. The total occlusion moved downward to the distal 3rd of the LAD but in spite of multiple attempts with a balloon and suction catheter. She still has total occlusion of the area. There was concern that this might be a chronic occlusion. Gene Archer MD [address] [place], [address], [facility] 12/25/2021 17:40:52 06/25/2022 text/html 06/25/22CC : Car diac follow up, dyspnea on [id number] year-old white female with history of CVA x5 since 2010 (with right sided weakness), determined by CT and Symptoms , CAD s/p NSTEMI 10/13/17 in setting of LV and LAD thrombus, active tobacco dependence,possible lupus anticoagulant, presents for 6 month follow up. She was last seen in the clinic on 09/22/22, since then she is not very activeShe denies ER visits and hospitalizations since she was last seen. Denies chest pain.Denies shortness of breath at rest. Has mild dyspnea on exertion.No orthopnea. No PNDs.Denies heart palpitations.Denies dizziness. Denies syncope or near syncope.No ankle or leg edema.No major bleeding events.No reported side effects from medications. Taking medications as prescribed with no missed doses.Denies snoring, daytime somnolence and AM headache.No known history of coronary artery disease. Has history of myocardial infarction. No history of heart failure. No known history of valvular heart disease. No known arrhythmia.*Last LDL was 65 done on 11/23/20 .Pt takes rosuvastatin 10 mg. Previously:She smokes cigarettes. She was smoking 1 PPD, now decreased to 1 cigarettes per day and starting to switch to non-nicotine vapor. 07/17/20:Na 139,k 4.1,Cl 104,Co2 24,Glu 93,Bun 09,Cr 1.00.11/23/20:TC 124,TG 122,HDL 32,LDL 65,Ast 34,Alt 36,CK 78.11/23/20:WBC 11.3,RBC 5.19,Hgb 16.0,Hct 49.3,Plt 357. She had a positive stress test *Had ECHO done in 12/18/20 showed LV chamber size is normal, there is normal global systolic function and contractility. *TTE 10/14/17 : Normal left ventricular systolic function, significant floating echo density noted close to the mid left ventricular cavity and closed the apex, could be thrombus or portion of the papillary muscle. She has normal mitral valve, normal aortic valve, normal tricuspid valve, normal pulmonic valve. No intracardiac shunts noted. *US, Carotid Artery 11/04/17: Antegrade flow noted in both vertebral arteries. Very mild bilateral internal carotid artery stenosis with less than 15% diameter stenosis. *Had cardiac cath on 10/14/17 which showed left main was a medium sized artery without significant disease or stenosis, mid LAD showed subtotal occlusion. There was a total occlusion in the distal portion of the LAD with filling defects noted of thrombus. Suction catheter with multiple balloon inflation's was attempted. The total occlusion moved downward to the distal 3rd of the LAD but in spite of multiple attempts with a balloon and suction catheter. She still has total occlusion of the area. There was concern that this might be a chronic occlusion.She had strokes while on Coumadin. Has not had any events since on Eliquis. Also on Plavix and ASA. She has gained 6 pounds since last visit. Contributes that to being less active with pandemic. She is down to 4 cigarettes every 3 days. Trying to quit completely. She was at [facility] on 10/13/17 for right sided weakness and blurry vision, with resolution of symptoms. She denied any chest pain, shortness of breath, nausea, vomiting. Her Troponin I was elevated, 5.540. Her EKG was unremarkable. Echo showed anterolateral wall motion abnormality indicative of recent PA.She was discharged on Eliquis 10 mg BID for 7 days, then 5 mg BID, Aspirin 81 mg daily, Metoprolol Tartrate 12.5 mg BID. She continues to have less fatigue and shortness of breath with exertion, improving. Denies any chest pain. She continues to take medication. *Had ECHO on 10/13/17 showing mild concentric left ventricular hypertrophy. Normal left ventricular size. Left ventricular systolic function at the lower limit of normal. Ejection fraction is visually estimated at 50%. Had akinesis of mid to apical anterolateral wall and hypokinesis of mid anterior to mid inferolateral wall. *Had CT Head on 10/13/17 showing multiple infarcts in the brain, some of which are age-indeterminate and some of which are likely subacute or chronic. Results from this visit, or from the past:12/19/18 GL 86, B 13, CR 0.98, NA 138, K 4.4, CH 105, C02 24, CA 9.5, MG 1.909: Na 138 ,K 4.4, CL 104 ,CO2 24, GLU 86, BUN 13, CR 0.98,07/04/18 / lipid panel, TR 89, HDL 36l, LDL : Na 137, K 4.4 ,CL 103, CO2 22, GLU 87, BUN 11, CR 0.97,AST 16, ALT 21, CK : Na 137 , K 4.7 ,CL 104 ,CO2 25 ,GLU 85, BUN 12 ,CR 0.92,04/11/18: TC 129 ,TG 116 ,HDL 31 ,LDL 78 ,10/13/17: Na 142, K 4.2, Cl 105, CO2 27, GLU 99, BUN 11, Cr 1.00, TSH 5.620, FT4 1.43, TT3 1.537: TC 169, TG 123, HDL 28, LDL 64326 EKG: Sinus tachycardia. Low voltage, chest leads. Poor R progression in chest leads.EKG 11/07/18 NSR. Low voltage chest leads. Inferior myocardial infarction, age undetermined.EKG 08/08/2018 sinus tachycardia low voltage chest leads inferior myocardial infarction age undeterminedEKG 05/30/18 :Sinus tachycardia , Low voltage , chest leads , Inferior myocardial infarction , age undetermined , Poor R progression in chest leads.EK02/14/18 NSR, PVC's. Inferior myocardial infarction, age undetermind.EKG 11/01/2017: Low voltage, chest leads; inferior myocardial infarction, age undetermined; Poor R progression in chest leads; Inverted T waves, anterior leads12/21/18 ECHO: Study quality: Technically difficult. LV chamber size is normal. LV Wall Thickness is Normal. LV systolic function is low normal. The apical septal wall appears moderately hypokinetic. The estimated left ventricle ejection fraction is 50-55% (normal). There is mild thickening of mitral valve anterior leaflet.*US, Duplex, Arterial, Upper Extremity 11/04/17: Bilateral subclavian, axillary and brachial arteries patent and triphasic. Bilateral brachial pressures 95. Pictures with carotid study.*ELIJAH 10/14/17 : Normal left ventricular systolic function, significant floating echodensity noted close to the mid left ventricular cavity and closed the apex, could be thrombus or portion of the papillary muscle. She has normal mitral valve, normal aortic valve, normal tricuspid valve, normal pulmonic valve. No intracardiac shunts noted.*ECHO 10/13/17: Mild concentric left ventricular hypertrophy. Normal left ventricular size. Left ventricular systolic function at the lower limit of normal. Ejection fraction is visually estimated at 50%. Had akinesis of mid to apical anterolateral wall and hypokinesis of mid anterior to mid inferolateral wall.*CT Head on 10/13/17 showing multiple infarcts in the brain, some of which are age-indeterminate and some of which are likely subacute or chronic.*cardiac cath on 10/14/17 which showed left main was a medium sized artery without significant disease or stenosis, mid LAD showed subtotal occlusion. There was a total occlusion in the distal portion of the LAD with filling defects noted of thrombus. Suction catheter with multiple balloon inflations was attempted. The total occlusion moved downward to the distal 3rd of the LAD but in spite of multiple attempts with a balloon and suction catheter. She still has total occlusion of the area. There was concern that this might be a chronic occlusion. Gene Archer MD [address] [place], [address], [facility] 06/25/2022 17:27:25 09/07/2023 text/html 09/07/23CC : [facility] follow up, dyspnea on [id number] year-old white female with history of CVA x5 since 2010 (with right sided weakness), determined by CT and Symptoms , CAD s/p NSTEMI 10/13/17 in setting of LV and LAD thrombus, active tobacco dependence,possible lupus anticoagulant, presents for follow up. She was last seen in the clinic on 06/25/22, since then she gained d25 poundsShe denies ER visits and hospitalizations since she was last seen. Today reports:no ccDenies chest pain.Denies shortness of breath at rest. Has mild dyspnea on exertion.No orthopnea. No PNDs.Denies heart palpitations.Denies dizziness. Denies syncope or near syncope.No ankle or leg edema.No major bleeding events.No reported side effects from medications. Taking medications as prescribed with no missed doses.Denies snoring, daytime somnolence and AM headache.*Last LDL was 56 done on 02/10/21.Pt takes rosuvastatin 10 mg. Previously:She smokes cigarettes. She was smoking 1 PPD, now decreased to 1 cigarettes per day and starting to switch to non-nicotine vapor. She had a positive stress test *Had ECHO done in 12/18/20 showed LV chamber size is normal, there is normal global systolic function and contractility. *TTE 10/14/17 : Normal left ventricular systolic function, significant floating echo density noted close to the mid left ventricular cavity and closed the apex, could be thrombus or portion of the papillary muscle. She has normal mitral valve, normal aortic valve, normal tricuspid valve, normal pulmonic valve. No intracardiac shunts noted. *US, Carotid Artery 11/04/17: Antegrade flow noted in both vertebral arteries. Very mild bilateral internal carotid artery stenosis with less than 15% diameter stenosis. *Had cardiac cath on 10/14/17 which showed left main was a medium sized artery without significant disease or stenosis, mid LAD showed subtotal occlusion. There was a total occlusion in the distal portion of the LAD with filling defects noted of thrombus. Suction catheter with multiple balloon inflation's was attempted. The total occlusion moved downward to the distal 3rd of the LAD but in spite of multiple attempts with a balloon and suction catheter. She still has total occlusion of the area. There was concern that this might be a chronic occlusion.She had strokes while on Coumadin. Has not had any events since on Eliquis. Also on Plavix and ASA. She has gained 6 pounds since last visit. Contributes that to being less active with pandemic. She is down to 4 cigarettes every 3 days. Trying to quit completely. She was at [facility] on 10/13/17 for right sided weakness and blurry vision, with resolution of symptoms. She denied any chest pain, shortness of breath, nausea, vomiting. Her Troponin I was elevated, 5.540. Her EKG was unremarkable. Echo showed anterolateral wall motion abnormality indicative of recent PA.She was discharged on Eliquis 10 mg BID for 7 days, then 5 mg BID, Aspirin 81 mg daily, Metoprolol Tartrate 12.5 mg BID. She continues to have less fatigue and shortness of breath with exertion, improving. Denies any chest pain. She continues to take medication. *Had ECHO on 10/13/17 showing mild concentric left ventricular hypertrophy. Normal left ventricular size. Left ventricular systolic function at the lower limit of normal. Ejection fraction is visually estimated at 50%. Had akinesis of mid to apical anterolateral wall and hypokinesis of mid anterior to mid inferolateral wall. *Had CT Head on 10/13/17 showing multiple infarcts in the brain, some of which are age-indeterminate and some of which are likely subacute or chronic. Results from this visit, or from the past:12/19/18 GL 86, B 13, CR 0.98, NA 138, K 4.4, CH 105, C02 24, CA 9.5, MG 1.909/: Na 138 ,K 4.4, CL 104 ,CO2 24, GLU 86, BUN 13, CR 0.98,07/04/18 / lipid panel, TR 89, HDL 36l, LDL : Na 137, K 4.4 ,CL 103, CO2 22, GLU 87, BUN 11, CR 0.97,AST 16, ALT 21, CK : Na 137 , K 4.7 ,CL 104 ,CO2 25 ,GLU 85, BUN 12 ,CR 0.92,04/11/18: TC 129 ,TG 116 ,HDL 31 ,LDL 78 ,10/13/17: Na 142, K 4.2, Cl 105, CO2 27, GLU 99, BUN 11, Cr 1.00, TSH 5.620, FT4 1.43, TT3 1.537: TC 169, TG 123, HDL 28, LDL 76869 EKG: Sinus tachycardia. Low voltage, chest leads. Poor R progression in chest leads.EKG 11/07/18 NSR. Low voltage chest leads. Inferior myocardial infarction, age undetermined.EKG 08/08/2018 sinus tachycardia low voltage chest leads inferior myocardial infarction age undeterminedEKG 05/30/18 :Sinus tachycardia , Low voltage , chest leads , Inferior myocardial infarction , age undetermined , Poor R progression in chest leads.EK02/14/18 NSR, PVC's. Inferior myocardial infarction, age undetermind.EKG 11/01/2017: Low voltage, chest leads; inferior myocardial infarction, age undetermined; Poor R progression in chest leads; Inverted T waves, anterior leads12/21/18 ECHO: Study quality: Technically difficult. LV chamber size is normal. LV Wall Thickness is Normal. LV systolic function is low normal. The apical septal wall appears moderately hypokinetic. The estimated left ventricle ejection fraction is 50-55% (normal). There is mild thickening of mitral valve anterior leaflet.*US, Duplex, Arterial, Upper Extremity 11/04/17: Bilateral subclavian, axillary and brachial arteries patent and triphasic. Bilateral brachial pressures 95. Pictures with carotid study.*ELIJAH 10/14/17 : Normal left ventricular systolic function, significant floating echodensity noted close to the mid left ventricular cavity and closed the apex, could be thrombus or portion of the papillary muscle. She has normal mitral valve, normal aortic valve, normal tricuspid valve, normal pulmonic valve. No intracardiac shunts noted.*ECHO 10/13/17: Mild concentric left ventricular hypertrophy. Normal left ventricular size. Left ventricular systolic function at the lower limit of normal. Ejection fraction is visually estimated at 50%. Had akinesis of mid to apical anterolateral wall and hypokinesis of mid anterior to mid inferolateral wall.*CT Head on 10/13/17 showing multiple infarcts in the brain, some of which are age-indeterminate and some of which are likely subacute or chronic.*cardiac cath on 10/14/17 which showed left main was a medium sized artery without significant disease or stenosis, mid LAD showed subtotal occlusion. There was a total occlusion in the distal portion of the LAD with filling defects noted of thrombus. Suction catheter with multiple balloon inflations was attempted. The total occlusion moved downward to the distal 3rd of the LAD but in spite of multiple attempts with a balloon and suction catheter. She still has total occlusion of the area. There was concern that this might be a chronic occlusion. Rebecca dumont, [facility] 09/09/2023 15:25:06 OBGyn Episode No OBEpisode recorded.
--- OUTSIDE RECORDS SUMMARY | 2024-04-12 15:08 | XMS_ITS | Encounter Summary ---
Author Organization [facility] Address [address] [place] [address] Care Team Providers Care Special Education Instructor Name Role Phone Keven Mckenzie MD Primary Care Provider [phone] Reason for Visit * Reason Comments Establish Care dvt Encounter Details Date Type Department Care Team (Late st Contact Info) Description 12/27/2017 1:00 PM CDT Office Visit [facility] Oncology and Hematology - Juan Manuel [address] [facility] [address] [place] [address] Gómez Patel MD [address] [facility] [address] [place] [address] Leukemoid reaction; Lupus anticoagulant with [...] She didwell until her recent admission to [facility] on October 13 when she came into the hospital with right-sided weakness and probable diagnosis of TIA. She also had non-ST segment elevated PA related to embolism to the LAD and [...] ??? Stroke Leukocytosis Psoriasis Non-ST segment elevated PA Surgical History Past Surgical History: Procedure Laterality [...] dysuria; no frequency; no hesitancy; no hematuria PETAL CUTTER: Musculosketetal: no bone pain; no arthralgia; no [...] attack. She also had non-ST segment elevated PA related to embolism to the LAD. Transesophageal [...] of the total time spent counseling patient [id number]. CC:Keven Mckenzie MD? documented in this encounter [...] Results * SEDIMENTATION RATE (12/28/2017) Blood Gómez Patle MD HEMATOLOGY ORDERABLE S Performing Organization Address [facility] Co de Phone Number EXTERNAL LAB * (ABNORMAL) C-REACTIVE PROTEIN (12/28/2017) Blood Gómez Patel MD CHEMISTRY ORDERABLES Performing Organization Address [facility] Co de Phone Number EXTERNAL LAB * CBC WITH DIFFERENTIAL (12/27/2017) Blood Gómez Patel MD HEMATOLOGY ORDERABLE S Performing Organization Address [facility] Co de Phone Number EXTERNAL LAB documented in this encounter Visit Diagnoses Diagnosis Leukemoid reaction Lupus anticoagulant with hypercoagulable state Primary hypercoagulable state documented in this encounter Care Teams Special Education Instructor Relationship Specialty Start Date End Date Keven Mckenzie MD [address] [place] [id number] PCP - General Family Practice 12/27/17 documented as of this encounter
--- OUTSIDE RECORDS SUMMARY | 2024-04-12 15:08 | XMS_ITS | Encounter Summary ---
Author Organization [facility] Address [address] [place] [address] Care Team Providers Care Manager Infrastructure Name Role Phone Keven Mckenzie MD Primary Care Provider [phone] Reason for Visit * Reason Comments Follow Up Results Encounter Details Date Type Department Care Team (Late st Contact Info) Description 07/11/2018 9:30 AM CDT Office Visit [facility] Oncology and Hematology [facility] [address] [place] [address] [address] [place] [address] Gómez Patel MD [address] [facility] [address] [place] [address] Leukemoid reaction (Primary Dx); Leukocytosis, [...] She didwell until her recent admission to [facility] on October 13 when she came into the hospital with right-sided weakness and probable diagnosis of TIA. She also had non-ST segment elevated WI related to embolism to the LAD and [...] attack. She also had non-ST segment elevated WI related to embolism to the LAD. Transesophageal [...] Patel MD CHEMISTRY ORDERABLES Performing Organization Address City/State/[facility] Co de Phone Number EXTERNAL LAB * CBC WITH DIFFERENTIAL (01/06/2019) Blood Gómez Patel MD HEMATOLOGY ORDERABLE S EXTERNAL LAB documented in this encounter Visit Diagnoses Diagnosis Leukemoid reaction- Primary Leukocytosis, unspecified type Thrombocytosis Essential thrombocythemia documented in this encounter Care Teams Manager Infrastructure Relationship Specialty Start Date End Date Keven Mckenzie MD [address] [place] [address] PCP - General Family Practice 12/27/17 documented as of this encounter
--- OUTSIDE RECORDS SUMMARY | 2024-04-12 15:08 | XMS_ITS | Encounter Summary ---
Author Organization [facility] [employer] [facility] Address [address] [place] [address] Care Team Providers Care Retail Client Solutions Consultant Name Role Phone Keven Mckenzie MD Primary Care Provider [phone] Encounter Details Date Type Department Care Team (Late st Contact Info) Description 07/19/2019 Orders Only [facility] Oncology and Hematology - Juan Manuel [address] [place] [address] [facility] [address] [place] [address] Gómez Patel MD [address] [facility] [address] [place] [address] Leukemoid reaction Social History Tobacco [...] MD HEMATOLOGY ORDERABLE S Performing Organization Address City/State/[facility] Co de Phone Number NON [facility] documented in this encounter Visit Diagnoses Diagnosis Leukemoid reaction documented in this encounter Care Teams Retail Client Solutions Consultant Relationship Specialty Start Date End Date Keven Mckenzie MD [address] [place] [address] PCP - General Family Practice 12/27/17 documented as of this encounter
--- OUTSIDE RECORDS SUMMARY | 2024-04-12 15:08 | XMS_ITS | Encounter Summary ---
Author Organization [facility] Address [address] [place] [address] Care Team Providers Care Process Safety Specialist Name Role Phone Keven Mckenzie MD Primary Care Provider [phone] Reason for Referral * Eval and Treat (Routine) - Closed Specialty Diagnoses / Procedures Referred By Dahiana staples Referred To Contact Dermatology Diagnoses Leukemoid reaction Gómez Patel MD [address] [facility] [address] [place] [address] Pankaj Peña MD [address] [place] [address] Referral ID Status Reason Start Date Expiration Date Visits Requested Visits Authorized [id number] Closed Ordering Department To Schedule 01/17/2019 01/18/2020 1 1 Reason for Visit * Reason Onset Date Comments Needs Orders Written 01/17/2019 Encounter Details Date Type Department Care Team (Late st Contact Info) Description 01/17/2019 Telephone [facility] Oncology and Hematology - Juan Manuel [address] [place] [address] [address] [place] [address] Gómez Patel MD [address] [facility] [address] [place] [address] Needs Orders Written Social History [...] Primary documented in this encounter Care Teams Process Safety Specialist Relationship Specialty Start Date End Date Keven Mckenzie MD [address] [place] [address] PCP - General Family Practice 12/27/17 documented as of this encounter
--- OUTSIDE RECORDS SUMMARY | 2024-04-12 15:08 | XMS_ITS | Encounter Summary ---
Author Organization [facility] My eStore App [facility] Address [address] [place] [address] Care Team Providers Care Engine Inspector Name Role Phone Keven Mckenzie MD Primary Care Provider [phone] Encounter Details Date Type Department Care Team (Late st Contact Info) Description 02/19/2023 Orders Only [facility] Oncology and Hematology - Juan Manuel [address] [place] [address] [address] [place] [address] Gómez Patel MD [address] [facility] [address] [place] [address] Leukocytosis, unspecified type (Primary Dx) [...] Primary documented in this encounter Care Teams Engine Inspector Relationship Specialty Start Date End Date Keven Mckenzie MD [address] [place] [address] PCP - General Family Practice 12/27/17 documented as of this encounter
--- OUTSIDE RECORDS SUMMARY | 2024-04-12 15:08 | XMS_ITS | Encounter Summary ---
Author Organization [facility] [employer] [facility] Address [address] [place] [address] Care Team Providers Care Poultry Sexer Name Role Phone Keven Mckenzie MD Primary Care Provider [phone] Reason for Visit * Reason Comments Follow Up 6 month f/u w/labs Encounter Details Date Type Department Care Team (Late st Contact Info) Description 07/18/2019 10:00 AM CDT Office Visit [facility] Oncology and Hematology - [place] [address] [place] [address] [address] [place] [address] Gómez Patel MD [address] [facility] [address] [place] [address] Leukemoid reaction (Primary Dx) Social [...] 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 No evidence of currently blood clot. She will continue Plavix and aspirin. Patient ran out of [employer]. Insurance will not cover the Eliquis. At this time I will continue with Plavix and aspirin alone. I will see her back in 6 months. History of [place]. Patient is on aspirin and Plavix. Reactive [...] Gómez Patel MD HEMATOLOGY ORDERABLE S NON [facility] documented in this encounter Visit Diagnoses Diagnosis Leukemoid reaction- Primary documented in this encounter Care Teams Poultry Sexer Relationship Specialty Start Date End Date Keven Mckenzie MD [address] [place] [address] PCP - General Family Practice 12/27/17 documented as of this encounter
--- OUTSIDE RECORDS SUMMARY | 2024-04-12 15:08 | XMS_ITS | Encounter Summary ---
Author Organization [facility] Address [address] [place] [address] Care Team Providers Care Vest Front Presser Name Role Phone Keven Mckenzie MD Primary Care Provider [phone] Reason for Visit * Reason Onset Date Comments Needs Orders Written 01/09/2020 Encounter Details Date Type Department Care Team (Late st Contact Info) Description 01/09/2020 Telephone [facility] Oncology and Hematology - Juan Manuel [address] [facility] [address] [place] [address] Gómez Patel MD [address] [facility] [address] [place] [address] Needs Orders Written Social History [...] thrombocythemia documented in this encounter Care Teams Vest Front Presser Relationship Specialty Start Date End Date Keven Mckenzie MD [address] [place] [address] PCP - General Family Practice 12/27/17 documented as of this encounter
--- OUTSIDE RECORDS SUMMARY | 2024-04-12 15:08 | XMS_ITS | Encounter Summary ---
Author Organization [facility] Address [address] [place] [address] Care Team Providers Care Communications Designer Name Role Phone Keven Mckenzie MD Primary Care Provider Encounter Details Date Type Department Care Team (Late st Contact Info) Description 01/04/2019 Orders Only [facility] Oncology and Hematology - Juan Manuel [address] [facility] [address] [place] [address] Gómez Patel MD [address] [facility] [address] [place] [address] Leukemoid reaction Social History Tobacco [...] reaction documented in this encounter Care Teams Communications Designer Relationship Specialty Start Date End Date Keven Mckenzie MD [address] [place] [address] PCP - General Family Practice 12/27/17 documented as of this encounter
--- OUTSIDE RECORDS SUMMARY | 2024-04-12 15:08 | XMS_ITS | Encounter Summary ---
Author Organization [facility] Address [address] [place] [address] Care Team Providers Care Web Content Director Name Role Phone Keven Mckenzie MD Primary Care Provider [phone] Encounter Details Date Type Department Care Team (Late st Contact Info) Description 04/20/2018 Orders Only [facility] Oncology and Hematology - Juan Manuel [address] [facility] [address] [place] [address] Gómez Patel MD [address] [facility] [address] [place] [address] Social History Tobacco Use Types [...] on filedocumented in this encounter Care Teams Web Content Director Relationship Specialty Start Date End Date Keven Mckenzie MD [address] [place] [address] PCP - General Family Practice 12/27/17 documented as of this encounter
--- OUTSIDE RECORDS SUMMARY | 2024-04-12 15:08 | XMS_ITS | Encounter Summary ---
Author Organization [facility] Address [address] [facility] Attn: Epic Prelude ADT [place] [address] Care Team Providers Care Vice President Client Services Name Role Phone Keven Mckenzie MD Primary Care Provider [phone] Encounter Details Date Type Department Care Team [...] on filedocumented in this encounter Care Teams Vice President Client Services Relationship Specialty Start Date End Date Keven Mckenzie MD [address] [place] [address] PCP - General Family Practice 12/27/17 documented as of this encounter
--- OUTSIDE RECORDS SUMMARY | 2024-04-12 15:08 | XMS_ITS | Encounter Summary ---
Author Organization [facility] Address [address] [place] [address] Care Team Providers Care Reel Stripper Name Role Phone Keven Mckenzie MD Primary Care Provider [phone] Encounter Details Date Type Department Care Team (Late st Contact Info) Description 04/08/2018 Orders Only [facility] Oncology and Hematology - Juan Amnuel [address] [facility] [place] [address] Karine Altamirano RN Leukocytosis, unspecified [...] type documented in this encounter Care Teams Reel Stripper Relationship Specialty Start Date End Date Keven Mckenzie MD [address] [place] [address] PCP - General Family Practice 12/27/17 documented as of this encounter
--- OUTSIDE RECORDS SUMMARY | 2024-04-12 15:08 | XMS_ITS | Encounter Summary ---
Author Organization [facility] Address [address] [place] [address] Care Team Providers Care Neurology Teacher Name Role Phone Keven Mckenzie MD Primary Care Provider [phone] Encounter Details Date Type Department Care Team (Late st Contact Info) Description 07/04/2018 Orders Only [facility] Oncology and Hematology - Juan Manuel [address] [facility] [address] [place] [address] Gómez Patel MD [address] [facility] [address] [place] [address] Leukemoid reaction Social History Tobacco [...] reaction documented in this encounter Care Teams Neurology Teacher Relationship Specialty Start Date End Date Keven Mckenzie MD [address] [place] [address] PCP - General Family Practice 12/27/17 documented as of this encounter
--- OUTSIDE RECORDS SUMMARY | 2024-04-12 17:10 | XMS_ITS | Encounter Summary ---
Author Organization [facility] Address [address] [place] [address] Care Team Providers Care Industrial Sewer Name Role Phone Keven Mckenzie MD Primary Care Provider [phone] Reason for Referral * MRI (Routine) - Closed Specialty Diagnoses / Procedures Referred By Dahiana staples Referred To Contact Diagnoses Neck mass Procedures MRI SOFT TISSUE NECK W WO CONTRAST Madyson Perez FNP [address] [address] [place] [address] Referral ID Status Reason Start Date Expiration Date V isits Requested Visits Authorized [id number] Closed STL CTS 04/16/2023 05/15/2023 1 1 ER METAL HANGING Encounter Details Date Type Department Care Team (Late st Contact Info) Description 04/16/2023 Orders Only [facility] Oncology and Hematology [facility] [address] [place] [address] Madyson Perez FNP [address] [address] Neck mass (Primary Dx) Social [...] neck documented in this encounter Care Teams Industrial Sewer Relationship Specialty Start Date End Date Keven Mckenzie MD [address] [place] [address] PCP - General Family Practice 12/27/17 documented as of this encounter
--- OUTSIDE RECORDS SUMMARY | 2024-04-12 17:10 | XMS_ITS | Encounter Summary ---
Author Organization [facility] Address [address] [place] [address] Care Team Providers Care Project Product Manager Name Role Phone Keven Mckenzie MD Primary Care Provider [phone] Encounter Details Date Type Department Care Team [...] on filedocumented in this encounter Care Teams Project Product Manager Relationship Specialty Start Date End Date Keven Mckenzie MD [address] [place] [address] PCP - General Family Practice 12/27/17 documented as of this encounter
--- OUTSIDE RECORDS SUMMARY | 2024-04-12 17:10 | XMS_ITS | Encounter Summary ---
Author Organization [facility] Address [address] [place] [address] Care Team Providers Care Noodle Catalyst Maker Name Role Phone Keven Mckenzie MD Primary Care Provider [phone] Encounter Details Date Type Department Care Team (Late st Contact Info) Description 04/18/2018 Orders Only [facility] Oncology and Hematology - Juan Manuel [address] [facility] [address] [place] [address] Gómez Patel MD [address] [facility] [address] [place] [address] Social History Tobacco Use Types [...] on filedocumented in this encounter Care Teams Noodle Catalyst Maker Relationship Specialty Start Date End Date Keven Mckenzie MD [address] [place] [address] PCP - General Family Practice 12/27/17 documented as of this encounter
--- OUTSIDE RECORDS SUMMARY | 2024-04-12 17:10 | XMS_ITS | Encounter Summary ---
Author Organization [facility] Address [address] [place] [address] Care Team Providers Care Rehabilitation Program Coordinator Name Role Phone Keven Mckenzie MD Primary Care Provider [phone] Encounter Details Date Type Department Care Team [...] on filedocumented in this encounter Care Teams Rehabilitation Program Coordinator Relationship Specialty Start Date End Date Keven Mckenzie MD [address] [place] [address] PCP - General Family Practice 12/27/17 documented as of this encounter
--- OUTSIDE RECORDS SUMMARY | 2024-04-12 17:10 | XMS_ITS | Encounter Summary ---
Author Organization [facility] [employer] [facility] Address [address] [place] [address] Care Team Providers Care Risk And Compliance Analytics Director Name Role Phone Keven Mckenzie MD Primary Care Provider [phone] Encounter Details Date Type Department Care Team (Late st Contact Info) Description 02/22/2023 Orders Only [facility] Oncology and Hematology - Juan Manuel [address] [facility] [address] [place] [address] Gómez Patel MD [address] [facility] [address] [place] [address] Social History Tobacco Use Types [...] SMEAR PATH REVIEW Routine 02/19/2023 10:36 AM BARREL LINER CHG BLOOD SMEAR PATH REVIEW Routine 02/18/2023 2:10 PM BARREL LINER ERYTHROPOIETIN LEVEL Routine 02/17/2023 10:33 AM BARREL LINER documented in this encounter Results * CHG BLOOD SMEAR PATH REVIEW (02/19/2023 10:36 AM BARREL LINER) Gómez Patel MD, CHG - LABORATORY * CHG BLOOD SMEAR PATH REVIEW (02/18/2023 2:10 PM BARREL LINER) Gómez M Amanda MD CHG - LABORATORY * ERYTHROPOIETIN LEVEL (02/17/2023 10:33 AM BARREL LINER) Blood Gómez Patel MD CHEMISTRY ORDERABLES documented in this encounter Visit Diagnoses Not on filedocumented in this encounter Care Teams Risk And Compliance Analytics Director Relationship Specialty Start Date End Date Keven Mckenzie MD [address] [place] [address] PCP - General Family Practice 12/27/17 documented as of this encounter
--- OUTSIDE RECORDS SUMMARY | 2024-04-12 17:10 | XMS_ITS | Encounter Summary ---
Author Organization [facility] Address [address] [place] [address] Care Team Providers Care Intranet Developer Name Role Phone Keven Mckenzie MD Primary Care Provider [phone] Encounter Details Date Type Department Care Team [...] on filedocumented in this encounter Care Teams Intranet Developer Relationship Specialty Start Date End Date Keven Mckenzie MD [address] [place] [address] PCP - General Family Practice 12/27/17 documented as of this encounter
--- OUTSIDE RECORDS SUMMARY | 2024-04-12 17:10 | XMS_ITS | Encounter Summary ---
Author Organization [facility] Address [address] [place] [address] Care Team Providers Care Facilities Officer Name Role Phone Keven Mckenzie MD Primary Care Provider [phone] Reason for Visit * Reason Comments Follow Up Results Encounter Details Date Type Department Care Team (Late st Contact Info) Description 05/02/2018 9:30 AM SUPERVISOR BEATER ROOM Office Visit [facility] Oncology and Hematology [facility] [address] [facility] [address] [place] [address] Gómez Patel MD [address] [facility] [address] [place] [address] Leukocytosis, unspecified type (Primary Dx); [...] Comments Blood Pressure 200/107 05/02/2018 8:51 AM SUPERVISOR BEATER ROOM Pulse 124 05/02/2018 8:51 AM SUPERVISOR BEATER ROOM Temperature 36.8 ??C (98.2 ??F) 05/02/2018 8:51 AM CS T Respiratory Rate - - Oxygen Saturation 98% 05/02/2018 8:51 AM SUPERVISOR BEATER ROOM Inhaled Oxygen Concentration - - Weight 119.7 kg (264 lb) 05/02/2018 8:51 AM SUPERVISOR BEATER ROOM Height 175.3 cm (5' 9 ) 05/02/2018 8:51 AM SUPERVISOR BEATER ROOM Body Mass Index 38.99 05/02/2018 8:51 AM SUPERVISOR BEATER ROOM documented in this encounter Progress Notes * [...] She didwell until her recent admission to [facility] on October 13 when she came into the hospital with right-sided weakness and probable diagnosis of TIA. 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 Transesophageal [...] to smoke. ? 05/02/2018 Gómez Patel MD RVISOR BEATER ROOM documented in this encounter Plan of Treatment Not on file documented as of this encounter Results * (ABNORMAL) CBC WITH DIFFERENTIAL (07/04/2018) Blood Gómez Patel MD HEMATOLOGY ORDERABLE S EXTERNAL LAB documented in this encounter Visit Diagnoses Diagnosis Leukocytosis, unspecified type- Primary Leukemoid reaction documented in this encounter Care Teams Facilities Officer Relationship Specialty Start Date End Date Keven Mckenzie MD [address] [place] [address] PCP - General Family Practice 12/27/17 documented as of this encounter
--- OUTSIDE RECORDS SUMMARY | 2024-04-12 17:10 | XMS_ITS | Encounter Summary ---
Author Organization [facility] Address [address] [place] [address] Care Team Providers Care Verse Writer Name Role Phone Keven Mckenzie MD Primary Care Provider [phone] Encounter Details Date Type Department Care Team [...] on filedocumented in this encounter Care Teams Verse Writer Relationship Specialty Start Date End Date Keven Mckenzie MD [address] [place] [address] PCP - General Family Practice 12/27/17 documented as of this encounter
--- OUTSIDE RECORDS SUMMARY | 2024-04-12 17:10 | XMS_ITS | Encounter Summary ---
Author Organization [facility] Address [address] [place] [address] Care Team Providers Care Car Conditioner Name Role Phone Keven Mckenzie MD Primary Care Provider [phone] Encounter Details Date Type Department Care Team [...] on filedocumented in this encounter Care Teams Car Conditioner Relationship Specialty Start Date End Date Keven Mckenzie MD [address] [place] [address] PCP - General Family Practice 12/27/17 documented as of this encounter
--- OUTSIDE RECORDS SUMMARY | 2024-04-12 17:10 | XMS_ITS | Encounter Summary ---
Author Organization [facility] Address [address] [place] [address] Care Team Providers Care Emergency Room Nurse Name Role Phone Keven Mckenzie MD Primary Care Provider [phone] Encounter Details Date Type Department Care Team [...] on filedocumented in this encounter Care Teams Emergency Room Nurse Relationship Specialty Start Date End Date Keven Mckenzie MD [address] [place] [address] PCP - General Family Practice 12/27/17 documented as of this encounter
--- OUTSIDE RECORDS SUMMARY | 2024-04-12 17:10 | XMS_ITS | Encounter Summary ---
Author Organization [facility] [employer] [facility] Address [address] [place] [address] Care Team Providers Care Paving Inspector Name Role Phone Keven Mckenzie MD Primary Care Provider [phone] Encounter Details Date Type Department Care Team (Late st Contact Info) Description 02/19/2023 Orders Only [facility] Oncology and Hematology - Juan Manuel [address] [place] [address] [address] [place] [address] Gómez Patel MD [address] [facility] [address] [place] [address] Leukocytosis, unspecified type (Primary Dx) [...] Primary documented in this encounter Care Teams Paving Inspector Relationship Specialty Start Date End Date Keven Mckenzie MD [address] [place] [address] PCP - General Family Practice 12/27/17 documented as of this encounter
--- OUTSIDE RECORDS SUMMARY | 2024-04-12 17:10 | XMS_ITS | Encounter Summary ---
Author Organization [facility] [employer] [facility] Address [address] [place] [address] Care Team Providers Care Nip Wrapper Name Role Phone Keven Mckenzie MD Primary Care Provider [phone] Encounter Details Date Type Department Care Team (Late st Contact Info) Description 05/05/2023 Orders Only [facility] Oncology and Hematology - Juan Manuel [address] [place] [address] Madyson Perez FNP [address] [place] [address] Social History Tobacco Use Types Packs/Day [...] Comments PATHOLOGY REPORT Routine 05/04/2023 11:08 AM PICK AND SHOVEL MAN documented in this encounter Results * PATHOLOGY REPORT (05/04/2023 11:08 AM PICK AND SHOVEL MAN) Madyson PHILIPPE PATHOLOGY/CYTOLOGY O RDERABLES documented in this encounter Visit Diagnoses Not on filedocumented in this encounter Care Teams Nip Wrapper Relationship Specialty Start Date End Date Keven Mckenzie MD [address] [place] [address] [place] [address] PCP - General Family Practice 12/27/17 documented as of this encounter
--- OUTSIDE RECORDS SUMMARY | 2024-04-12 17:10 | XMS_ITS | Encounter Summary ---
Author Organization [facility] Address [address] [place] [address] Care Team Providers Care Administrator Health Care Facility Name Role Phone Keven Mckenzie MD Primary Care Provider [phone] Encounter Details Date Type Department Care Team [...] on filedocumented in this encounter Care Teams Administrator Health Care Facility Relationship Specialty Start Date End Date Keven Mckenzie MD [address] [place] [address] PCP - General Family Practice 12/27/17 documented as of this encounter
--- OUTSIDE RECORDS SUMMARY | 2024-04-12 17:10 | XMS_ITS | Encounter Summary ---
Author Organization [facility] [employer] [facility] Address [address] [place] [address] Care Team Providers Care Toy Maker Name Role Phone Keven Mckenzie MD Primary Care Provider [phone] Encounter Details Date Type Department Care Team (Latest Contact Info) Description 04/22/2023 1:00 PM PHOTOGRAPHIC AIDE Telephone [facility] Oncology and Hematology - Juan Manuel [address] [email or web address] [address] [place] [address] Madyson Perez FNP [address] [facility] [address] [place] [address] Leukocytosis, unspecified type (Primary Dx); [...] therapy lifelong History of non-ST segment elevated [place]: Patient is on aspirin, Plavix, Eliquis Leukocytosis [...] 1:15 PM Hematology Oncology Nurse Practitioner [facility] Collaborating Physician: Dr. Gómez Patel. This encounter was completed via audio-only two way synchronous communication. Patient's identity confirmed yes Patient gave verbal consent to have these services billed to their insurance and expressed understanding that co-insurance and deductible may apply: yes Time spent by the provider delivering the care documented in this encounter 20 minutes. OGRAPHIC AIDE documented in this encounter Plan of Treatment [...] state documented in this encounter Care Teams Toy Maker Relationship Specialty Start Date End Date Keven Mckenzie MD [address] [place] [address] PCP - General Family Practice 12/27/17 documented as of this encounter
--- OUTSIDE RECORDS SUMMARY | 2024-04-12 17:10 | XMS_ITS | Encounter Summary ---
Author Organization [facility] Address [address] [place] [address] Care Team Providers Care Distributed Energy Systems Consultant Name Role Phone Keven Mckenzie MD [...] on filedocumented in this encounter Care Teams Distributed Energy Systems Consultant Relationship Specialty Start Date End Date Keven Mckenzie MD [address] [place] [address] PCP - General Family Practice 12/27/17 documented as of this encounter
--- OUTSIDE RECORDS SUMMARY | 2024-04-12 17:10 | XMS_ITS | Encounter Summary ---
Author Organization [facility] Address [address] [place] [address] Care Team Providers Care Jazz Musician Name Role Phone Keven Mckenzie MD Primary Care Provider [phone] Encounter Details Date Type Department Care Team [...] on filedocumented in this encounter Care Teams Jazz Musician Relationship Specialty Start Date End Date Keven Mckenzie MD [address] [place] [address] PCP - General Family Practice 12/27/17 documented as of this encounter
--- OUTSIDE RECORDS SUMMARY | 2024-04-12 17:10 | XMS_ITS | Encounter Summary ---
Author Organization [facility] Address [address] [place] [address] Care Team Providers Care Sea Kayaking Guide Name Role Phone Keven Mckenzie MD Primary Care Provider [phone] Reason for Visit * Reason Onset Date Comments Results 12/28/2017 Encounter Details Date Type Department Care Team (Late st Contact Info) Description 12/28/2017 Telephone [facility] Oncology and Hematology - Juan Manuel [address] [facility] [address] [place] [address] Gómez Patel MD [address] [facility] [address] [place] [address] Results Social History Tobacco Use [...] Primary documented in this encounter Care Teams Sea Kayaking Guide Relationship Specialty Start Date End Date Keven Mckenzie MD [address] [place] [address] PCP - General Family Practice 12/27/17 documented as of this encounter
--- OUTSIDE RECORDS SUMMARY | 2024-04-12 17:10 | XMS_ITS | Encounter Summary ---
Author Organization [facility] [employer] [facility] Address [address] [place] [address] Care Team Providers Care School Bus Driver/Mechanic Name Role Phone Keven Mckenzie MD Primary Care Provider [phone] Encounter Details Date Type Department Care Team (Late st Contact Info) Description 02/22/2023 Abstract [facility] Oncology and Hematology - Juan Manuel [address] [place] [address] [address] [place] [address] Gómez Patel MD [address] [facility] [address] [place] [address] Social History Tobacco Use Types [...] on filedocumented in this encounter Care Teams School Bus Driver/Mechanic Relationship Specialty Start Date End Date Keven Mckenzie MD [address] [place] [address] PCP - General Family Practice 12/27/17 documented as of this encounter
--- OUTSIDE RECORDS SUMMARY | 2024-04-12 17:10 | XMS_ITS | Encounter Summary ---
Author Organization [facility] [employer] [facility] Address [address] [place] [address] Care Team Providers Care Insurance Actuary Name Role Phone Keven Mckenzie MD Primary Care Provider [phone] Encounter Details Date Type Department Care Team (Late st Contact Info) Description 05/03/2023 Orders Only [facility] Oncology and Hematology - Juan Manuel [address] [place] [address] Madyson Perez FNP 321 [facility] 100 [place] [address] Neck mass (Primary Dx) Social [...] neck documented in this encounter Care Teams Insurance Actuary Relationship Specialty Start Date End Date Keven Mckenzie MD [address] [place] [address] PCP - General Family Practice 12/27/17 documented as of this encounter
--- OUTSIDE RECORDS SUMMARY | 2024-04-12 17:10 | XMS_ITS | Encounter Summary ---
Author Organization [facility] [employer] [facility] Address [address] [place] [address] Care Team Providers Care Filter Helper Name Role Phone Keven Mckenzie MD Primary Care Provider [phone] Reason for Visit * Reason Comments Follow Up 6 month f/u w/labs Encounter Details Date Type Department Care Team (Late st Contact Info) Description 07/18/2019 10:00 AM CDT Office Visit [facility] Oncology and Hematology - [place] [address] [place] [address] [address] [place] [address] Gómez Patel MD 2[address] [facility] [address] [place] [address] Leukemoid reaction (Primary Dx) Social [...] TIA diagnosed October 2017 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 No evidence of currently blood clot. She will continue Plavix and aspirin. Patient ran out of [employer]. Insurance will not cover the Eliquis. At this time I will continue with Plavix and aspirin alone. I will see her back in 6 months. History of NH. Patient is on aspirin and Plavix. Reactive [...] Gómez Patel MD HEMATOLOGY ORDERABLE S NON [facility] documented in this encounter Visit Diagnoses Diagnosis Leukemoid reaction- Primary documented in this encounter Care Teams Filter Helper Relationship Specialty Start Date End Date Keven Mckenzie MD [address] [place] [address] PCP - General Family Practice 12/27/17 documented as of this encounter
--- OUTSIDE RECORDS SUMMARY | 2024-04-12 17:10 | XMS_ITS | Encounter Summary ---
Author Organization [facility] Address [address] [place] [address] Care Team Providers Care Winter Sports Manager Name Role Phone Keven Mckenzie MD Primary Care Provider [phone] Encounter Details Date Type Department Care Team [...] on filedocumented in this encounter Care Teams Winter Sports Manager Relationship Specialty Start Date End Date Keven Mckenzie MD [address] [place] [address] PCP - General Family Practice 12/27/17 documented as of this encounter
--- OUTSIDE RECORDS SUMMARY | 2024-04-12 17:10 | XMS_ITS | Encounter Summary ---
Author Organization [facility] [employer] [facility] Address [address] [place] [address] Care Team Providers Care Cover Making Machine Operator Name Role Phone Keven Mckenzie MD Primary Care Provider [phone] Reason for Visit * Reason Onset Date Comments Needs Orders Written 01/09/2020 Encounter Details Date Type Department Care Team (Late st Contact Info) Description 01/09/2020 Telephone [facility] Oncology and Hematology - Juan Manuel [address] [facility] [address] [place] [address] Gómez Patel MD [address] [facility] [address] [place] [address] Needs Orders Written Social History [...] thrombocythemia documented in this encounter Care Teams Cover Making Machine Operator Relationship Specialty Start Date End Date Keven Mckenzie MD [address] [place] [address] PCP - General Family Practice 12/27/17 documented as of this encounter
--- OUTSIDE RECORDS SUMMARY | 2024-04-12 17:10 | XMS_ITS | Encounter Summary ---
Author Organization [facility] Address [address] [place] [address] Care Team Providers Care Restaurant Front Manager Name Role Phone Keven Mckenzie MD Primary Care Provider [phone] Encounter Details Date Type Department Care Team [...] on filedocumented in this encounter Care Teams Restaurant Front Manager Relationship Specialty Start Date End Date Keven Mckenzie MD [address] [place] [address] PCP - General Family Practice 12/27/17 documented as of this encounter
--- OUTSIDE RECORDS SUMMARY | 2024-04-12 17:10 | XMS_ITS | Encounter Summary ---
Author Organization [facility] Address [address] [place] [address] Care Team Providers Care Naval Architect Name Role Phone Keven Mckenzie MD Primary Care Provider [phone] Encounter Details Date Type Department Care Team [...] on filedocumented in this encounter Care Teams Naval Architect Relationship Specialty Start Date End Date Keven Mckenzie MD [address] [place] [address] PCP - General Family Practice 12/27/17 documented as of this encounter
--- OUTSIDE RECORDS SUMMARY | 2024-04-12 17:10 | XMS_ITS | Encounter Summary ---
Author Organization [facility] Address [address] [place] [address] Care Team Providers Care Online Editor Name Role Phone Keven Mckenzie MD Primary Care Provider Encounter Details Date Type Department Care Team (Late st Contact Info) Description 01/04/[address] [facility] Oncology and Hematology - Juan Manuel [address] [facility] 200 [place] [address] Gómez Patel MD 2[address] [facility] [address] [place] [address] Leukemoid reaction Social History Tobacco [...] reaction documented in this encounter Care Teams Online Editor Relationship Specialty Start Date End Date Keven Mckenzie MD [address] [place] [address] PCP - General Family Practice 12/27/17 documented as of this encounter
--- OUTSIDE RECORDS SUMMARY | 2024-04-12 17:10 | XMS_ITS | Encounter Summary ---
Author Organization [facility] [employer] [facility] Address [address] [place] [address] Care Team Providers Care Exhibition Organiser Name Role Phone Keven Mckenzie MD Primary Care Provider [phone] Encounter Details Date Type Department Care Team (Late st Contact Info) Description 07/19/2019 Orders Only [facility] Oncology and Hematology - Juan Manuel [address] [place] [address] [facility] 200 [place] [address] Gómez Patel MD [address] [facility] [address] [place] [address] Leukemoid reaction Social History Tobacco [...] MD HEMATOLOGY ORDERABLE S Performing Organization Address City/State/[facility] Co de Phone Number NON [facility] documented in this encounter Visit Diagnoses Diagnosis Leukemoid reaction documented in this encounter Care Teams Exhibition Organiser Relationship Specialty Start Date End Date Keven Mckenzie MD [address] [place] [address] PCP - General Family Practice 12/27/17 documented as of this encounter
--- OUTSIDE RECORDS SUMMARY | 2024-04-12 17:10 | XMS_ITS | Encounter Summary ---
Author Organization [facility] [employer] [facility] Address [address] [place] [address] Care Team Providers Care Abattoir Supervisor Name Role Phone Keven Mckenzie MD Primary Care Provider [phone] Reason for Referral * Eval and Treat (Routine) - Closed Specialty Diagnoses / Procedures Referred By Dahiana staples Referred To Contact Dermatology Diagnoses Leukemoid reaction Gómez Patel MD [address] [facility] [address] [place] [address] Pankaj Peña MD [address] [place] [address] Referral ID Status Reason Start Date Expiration Date Visits Requested Visits Authorized [id number] Closed Ordering Department To Schedule 01/17/2019 01/18/2020 1 1 Reason for Visit * Reason Onset Date Comments Needs Orders Written 01/17/2019 Encounter Details Date Type Department Care Team (Late st Contact Info) Description 01/17/2019 Telephone [facility] Oncology and Hematology - Juan Manuel [address] [place] [address] [facility] 200 [place] [address] Gómez Patel MD [address] [facility] [address] [place] [address] Needs Orders Written Social History [...] Primary documented in this encounter Care Teams Abattoir Supervisor Relationship Specialty Start Date End Date Keven Mckenzie MD [address] [place] [address] PCP - General Family Practice 12/27/17 documented as of this encounter
--- OUTSIDE RECORDS SUMMARY | 2024-04-12 17:10 | XMS_ITS | Encounter Summary ---
Author Organization [facility] Address [address] [place] [address] Care Team Providers Care Saturator Operator Name Role Phone Keven Mckenzie MD Primary Care Provider [phone] Encounter Details Date Type Department Care Team [...] on filedocumented in this encounter Care Teams Saturator Operator Relationship Specialty Start Date End Date Keven Mckenzie MD [address] [place] [address] PCP - General Family Practice 12/27/17 documented as of this encounter
--- OUTSIDE RECORDS SUMMARY | 2024-04-12 17:10 | XMS_ITS | Encounter Summary ---
Author Organization [facility] Address [address] [place] [address] Care Team Providers Care Rehab Manager Name Role Phone Keven Mckenzie MD Primary Care Provider [phone] Reason for Visit * Reason Comments Establish Care dvt Encounter Details Date Type Department Care Team (Late st Contact Info) Description 12/27/2017 1:00 PM CDT Office Visit [facility] Oncology and Hematology - Juan Manuel 2[address] [facility] 200 [place] [address] Gómez Patel MD 2[address] [facility] [address] [place] [address] Leukemoid reaction; Lupus anticoagulant with [...] She didwell until her recent admission to [facility] on October 13 when she came into the hospital with right-sided weakness and probable diagnosis of TIA. She also had non-ST segment elevated [place] related to embolism to the LAD and [...] ??? Stroke Leukocytosis Psoriasis Non-ST segment elevated RI Surgical History Past Surgical History: Procedure Laterality [...] dysuria; no frequency; no hesitancy; no hematuria FACTORY CLERK: Musculosketetal: no bone pain; no arthralgia; no [...] attack. She also had non-ST segment elevated [place] related to embolism to the LAD. Transesophageal [...] of the total time spent counseling patient [id number]. CC:Keven Mckenzie MD? documented in this encounter [...] MD HEMATOLOGY ORDERABLE S Performing Organization Address [facility] Co de Phone Number EXTERNAL LAB * (ABNORMAL) C-REACTIVE PROTEIN (12/28/2017) Blood Gómez Patel MD CHEMISTRY ORDERABLES Performing Organization Address [facility] Co de Phone Number EXTERNAL LAB * CBC WITH DIFFERENTIAL (12/27/2017) Blood Gómez Patel MD HEMATOLOGY ORDERABLE S Performing Organization Address [facility] Co de Phone Number EXTERNAL LAB documented in this encounter Visit Diagnoses Diagnosis Leukemoid reaction Lupus anticoagulant with hypercoagulable state Primary hypercoagulable state documented in this encounter Care Teams Rehab Manager Relationship Specialty Start Date End Date Keven Mckenzie MD [address] [place] [address] PCP - General Family Practice 12/27/17 documented as of this encounter
--- OUTSIDE RECORDS SUMMARY | 2024-04-12 17:10 | XMS_ITS | Encounter Summary ---
Author Organization [facility] [facility] Address [address] [place] [address] Care Team Providers Care Belting Inspector Name Role Phone Keven Mckenzie MD Primary Care Provider [phone] Reason for Visit * Reason Comments Leukocytosis Encounter Details Date Type Department Care Team (Late st Contact Info) Description 02/17/2023 3:00 PM REVENUE RESEARCH ANALYST Office Visit [facility] Oncology and Hematology - Juan Manuel [address] [facility] 200 [place] [address] Madyson Perez FNP [address] [facility] 100 [place] [address] Leukocytosis, unspecified type (Primary Dx) [...] Comments Blood Pressure 139/82 02/17/2023 2:50 PM REVENUE RESEARCH ANALYST Pulse 116 02/17/2023 2:50 PM REVENUE RESEARCH ANALYST Temperature 37.1 ??C (98.8 ??F) 02/17/2023 2:50 PM CS T Respiratory Rate 18 02/17/2023 2:50 PM REVENUE RESEARCH ANALYST Oxygen Saturation 98% 02/17/2023 2:50 PM REVENUE RESEARCH ANALYST Inhaled Oxygen Concentration - - Weight 134 kg (295 lb 6.4 oz) 02/17/2023 2:50 PM REVENUE RESEARCH ANALYST Height 175.3 cm (5' 9 ) 02/17/2023 2:50 PM REVENUE RESEARCH ANALYST Body Mass Index 43.62 02/17/2023 2:50 PM REVENUE RESEARCH ANALYST documented in this encounter Progress Notes * Madyson Perez, CONTINUING EDUCATION DIRECTOR - 02/17/2023 3:46 PM CST Hematology-Oncology Consult [...] attack. She also had non-ST segment elevated [place] related to embolism to the LAD. Transesophageal [...] attack. She also had non-ST segment elevated [place] related to embolism to the LAD. Transesophageal [...] therapy lifelong History of non-ST segment elevated [place]: Patient is on aspirin, Plavix, Eliquis Leukocytosis [...] 02/17/2023 3:46 PM Hematology Oncology Nurse Practitioner [facility] ? Total time spent 60 minutes, two third of the total time spent counseling patient [id number]. This patient's plan of care has been reviewed and approved by Dr. Gómez Patel. If you have any questions regarding this hematology or oncology evaluation, feel free to contact us for further assistance. Thank you for allowing us to be a part of this patient's care. CC: Keven Mckenzie MD NUE RESEARCH ANALYST documented in this encounter Plan of [...] Primary documented in this encounter Care Teams Belting Inspector Relationship Specialty Start Date End Date Keven Mckenzie MD [address] [place] [address] PCP - General Family Practice 12/27/17 documented as of this encounter
--- OUTSIDE RECORDS SUMMARY | 2024-04-12 17:10 | XMS_ITS | Encounter Summary ---
Author Organization [facility] Address [address] [place] [address] Care Team Providers Care Mesmerist Name Role Phone Keven Mckenzie MD Primary Care Provider [phone] Encounter Details Date Type Department Care Team (Late st Contact Info) Description 04/08/2018 Orders Only [facility] Oncology and Hematology - Juan Manuel [address] [place] [address] Karine Altamirano RN Leukocytosis, unspecified [...] type documented in this encounter Care Teams Mesmerist Relationship Specialty Start Date End Date Keven Mckenzie MD [address] [place] [address] PCP - General Family Practice 12/27/17 documented as of this encounter
--- OUTSIDE RECORDS SUMMARY | 2024-04-12 17:10 | XMS_ITS | Clinical Summary ---
Author Organization [facility] Address [address] [place] [address] Care Team Providers Care Director Of Global Talent Name Role Phone Keven Mckenzie MD Primary Care Provider [phone] Allergies Active Allergy Reactions Criticality Noted Date [...] Comments Blood Pressure 111/73 05/10/2023 1:13 PM COORDINATING PRODUCER Pulse 109 05/10/2023 1:13 PM COORDINATING PRODUCER Temperature 37.1 ??C (98.8 ??F) 02/17/2023 2:50 PM CS T Respiratory Rate 16 05/10/2023 1:13 PM COORDINATING PRODUCER Oxygen Saturation 95% 05/10/2023 1:13 PM COORDINATING PRODUCER Inhaled Oxygen Concentration - - Weight 136.4 kg (300 lb 9.6 oz) 05/10/2023 1:13 PM COORDINATING PRODUCER Height 175.3 cm (5' 9 ) 02/17/2023 2:50 PM COORDINATING PRODUCER Body Mass Index 44.39 02/17/2023 2:50 PM COORDINATING PRODUCER Plan of Treatment Health Maintenance Due Date [...] age to complete this topic Care Teams Director Of Global Talent Relationship Specialty Start Date End Date Keven Mckenzie MD [address] [place] [address] PCP - General Family Practice 12/27/17
--- OUTSIDE RECORDS SUMMARY | 2024-04-12 17:10 | XMS_ITS | Encounter Summary ---
Author Organization [facility] [employer] [facility] Address [address] [place] [address] Care Team Providers Care Weed Controller Name Role Phone Keven Mckenzie MD Primary Care Provider [phone] Encounter Details Date Type Department Care Team (Late st Contact Info) Description 04/21/2023 Orders Only [facility] Oncology and Hematology - Juan Manuel [address] [place] [address] Madyson Perez FNP [address] [facility] 100 [place] [address] Leukocytosis, unspecified type (Primary Dx) [...] Primary documented in this encounter Care Teams Weed Controller Relationship Specialty Start Date End Date Keven Mckenzie MD [address] [place] [address] [place] [address] PCP - General Family Practice 12/27/17 documented as of this encounter
--- OUTSIDE RECORDS SUMMARY | 2024-04-12 17:10 | XMS_ITS | Encounter Summary ---
Author Organization [facility] [employer] [facility] Address [address] [place] [address] Care Team Providers Care Hand Icer Name Role Phone Keven Mckenzie MD Primary Care Provider [phone] Encounter Details Date Type Department Care Team (Late st Contact Info) Description 07/11/2019 Orders Only [facility] Oncology and Hematology - Juan Manuel [address] [facility] [address] [place] [address] Gómez Patel MD [address] [facility] [address] [place] [address] Leukemoid reaction Social History Tobacco [...] Gómez Patel MD HEMATOLOGY ORDERABLE S NON [facility] * BASIC METABOLIC PANEL (07/18/2019) Blood Gómez Patel MD CHEMISTRY ORDERABLES NON [facility] documented in this encounter Visit Diagnoses Diagnosis Leukemoid reaction documented in this encounter Care Teams Hand Icer Relationship Specialty Start Date End Date Keven Mckenzie MD [address] [place] [address] PCP - General Family Practice 12/27/17 documented as of this encounter
--- OUTSIDE RECORDS SUMMARY | 2024-04-12 17:10 | XMS_ITS | Encounter Summary ---
Author Organization [facility] [employer] Address [address] [place] [address] Care Team Providers Care Vice President Process Name Role Phone Keven Mckenzie MD Primary Care Provider [phone] Encounter Details Date Type Department Care Team (Late st Contact Info) Description 04/22/2023 Orders Only [facility] Oncology and Hematology - Juan Manuel [address] [place] [address] Madyson Perez FNP [address] [facility] 100 [place] [address] Social History Tobacco Use Types [...] W WO CONTRAST Routine 04/19/2023 12:57 PM AUTOMATION CONTROLS EXPERT documented in this encounter Results * MRI ORBIT FACE NECK W WO CONTRAST (04/19/2023 12:57 PM AUTOMATION CONTROLS EXPERT) Anatomical Region Laterality Modality Head Other Madyson PHILIPPE MR ORDERABLES documented in this encounter Visit Diagnoses Not on filedocumented in this encounter Care Teams Vice President Process Relationship Specialty Start Date End Date Keven Mckenzie MD [address] [place] [address] [place] [address] PCP - General Family Practice 12/27/17 documented as of this encounter
--- OUTSIDE RECORDS SUMMARY | 2024-04-12 17:10 | XMS_ITS | Encounter Summary ---
Author Organization [facility] [employer] Address [address] [place] [address] Care Team Providers Care Sorting Grapple Operator Name Role Phone Keven Mckenzie MD Primary Care Provider [phone] Encounter Details Date Type Department Care Team (Late st Contact Info) Description 02/18/2023 Orders Only [facility] Oncology and Hematology - Juan Manuel [address] [facility] [address] [place] [address] Gómez Patel MD [address] [facility] [address] [place] [address] Claustrophobia (Primary Dx) Social History [...] ST NECK W Routine 02/17/2023 12:51 PM CASINO SLOT SUPERVISOR documented in this encounter Results * CT HEAD W + ST NECK W (02/17/2023 12:51 PM CASINO SLOT SUPERVISOR) Anatomical Region Laterality Modality Head Other Gómez Patel MD CT ORDERABLES documented in this encounter Visit Diagnoses Diagnosis Claustrophobia- Primary Other isolated or specific phobias documented in this encounter Care Teams Sorting Grapple Operator Relationship Specialty Start Date End Date Keven Mckenzie MD [address] [place] [address] PCP - General Family Practice 12/27/17 documented as of this encounter
--- OUTSIDE RECORDS SUMMARY | 2024-04-12 17:10 | XMS_ITS | Encounter Summary ---
Author Organization [facility] Address [address] [place] [address] Care Team Providers Care Continuous Improvement Black Belt Name Role Phone Keven Mckenzie MD Primary Care Provider [phone] Encounter Details Date Type Department Care Team (Late st Contact Info) Description 12/27/2017 Orders Only [facility] Oncology and Hematology - Juan Manuel [address] [facility] [address] [place] [address] Karine Altamirano, RN Lupus anticoagulant [...] state documented in this encounter Care Teams Continuous Improvement Black Belt Relationship Specialty Start Date End Date Keven Mckenzie MD [address] [place] [address] PCP - General Family Practice 12/27/17 documented as of this encounter
--- OUTSIDE RECORDS SUMMARY | 2024-04-12 17:10 | XMS_ITS | Encounter Summary ---
Author Organization [facility] Address [address] [place] [address] Care Team Providers Care Interactive Project Manager Name Role Phone Keven Mckenzie MD Primary Care Provider [phone] Encounter Details Date Type Department Care Team (Late st Contact Info) Description 07/04/2018 Orders Only [facility] Oncology and Hematology - Juan Manuel [address] [facility] [address] [place] [address] Gómez Patel MD [address] [facility] [address] [place] [address] Leukemoid reaction Social History Tobacco [...] reaction documented in this encounter Care Teams Interactive Project Manager Relationship Specialty Start Date End Date Keven Mckenzie MD [address] [place] [address] PCP - General Family Practice 12/27/17 documented as of this encounter
--- OUTSIDE RECORDS SUMMARY | 2024-04-12 17:10 | XMS_ITS | Encounter Summary ---
Author Organization [facility] [employer] [facility] Address [address] [place] [address] Care Team Providers Care Forensic Document Examiner Name Role Phone Keven Mckenzie MD Primary Care Provider [phone] Reason for Visit * Reason Comments Follow Up 6 MTH FU W /LABS Encounter Details Date Type Department Care Team (Late st Contact Info) Description 01/16/2019 3:45 PM CDT Office Visit 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 She is currently on Plavix, aspirin and Eliquis. She will stay on lifetime on anti-correlation therapy. She had echocardiogramdone 3 weeks ago showed no evidence of thrombosis by her box printing machine operator. History of non-ST segment elevated MS. Patient is on aspirin and Plavix. Reactive [...] Patel MD CHEMISTRY ORDERABLES Performing Organization Address [facility] Co de Phone Number NON [facility] LAB * CBC WITH DIFFERENTIAL (07/18/2019) Blood Gómez Patel MD HEMATOLOGY ORDERABLE S Performing Organization Address [facility] Co de Phone Number NON [facility] LAB documented in this encounter Visit Diagnoses Diagnosis Leukemoid reaction- Primary documented in this encounter Care Teams Forensic Document Examiner Relationship Specialty Start Date End Date Keven Mckenzie MD [address] [place] [address] PCP - General Family Practice 12/27/17 documented as of this encounter
--- OUTSIDE RECORDS SUMMARY | 2024-04-12 17:10 | XMS_ITS | Encounter Summary ---
Author Organization [facility] Address [address] [facility] Attn: Epic Prelude ADT [place] [address] Care Team Providers Care Calculation Clerk Name Role Phone Keven Mckenzie MD Primary Care Provider [phone] Encounter Details Date Type Department Care Team [...] on filedocumented in this encounter Care Teams Calculation Clerk Relationship Specialty Start Date End Date Keven Mckenzie MD [address] [place] [address] PCP - General Family Practice 12/27/17 documented as of this encounter
--- OUTSIDE RECORDS SUMMARY | 2024-04-12 17:10 | XMS_ITS | Encounter Summary ---
Author Organization [facility] [employer] [facility] Address [address] [place] [address] Care Team Providers Care Electrical Maintenance Technician Name Role Phone Keven Mckenzie MD Primary Care Provider [phone] Encounter Details Date Type Department Care Team (Late st Contact Info) Description 03/08/2023 Orders Only [facility] Oncology and Hematology - Juan Manuel [address] [place] [address] [address] [place] [address] Gómez Patel MD [address] [facility] [address] [place] [address] Social History Tobacco Use Types [...] on filedocumented in this encounter Care Teams Electrical Maintenance Technician Relationship Specialty Start Date End Date Keven Mckenzie MD [address] [place] [address] PCP - General Family Practice 12/27/17 documented as of this encounter
--- OUTSIDE RECORDS SUMMARY | 2024-04-12 17:10 | XMS_ITS | Encounter Summary ---
Author Organization [facility] [employer] [facility] Address [address] [place] [address] Care Team Providers Care Residential Sales Associate Name Role Phone Keven Mckenzie MD Primary Care Provider [phone] Reason for Visit * Reason Comments Follow Up Encounter Details Date Type Department Care Team (Latest Contact Info) Description 05/10/2023 1:00 PM CHARGE GANG WEIGHER [facility] Oncology and Hematology - Juan Manuel [address] [facility] [address] [place] [address] Madyson Perez FNP [address] [facility] [address] [place] [address] Leukocytosis, unspecified type (Primary Dx); [...] Comments Blood Pressure 111/73 05/10/2023 1:13 PM CHARGE GANG WEIGHER Pulse 109 05/10/2023 1:13 PM CHARGE GANG WEIGHER Temperature - - Respiratory Rate 16 05/10/2023 1:13 PM CHARGE GANG WEIGHER Oxygen Saturation 95% 05/10/2023 1:13 PM CHARGE GANG WEIGHER Inhaled Oxygen Concentration - - Weight 136.4 kg (300 lb 9.6 oz) 05/10/2023 1:13 PM CHARGE GANG WEIGHER Height - - Body Mass Index 44.39 02/17/2023 2:50 PM CHARGE GANG WEIGHER documented in this encounter Progress Notes * Madyson Perez, SUPERVISOR ASSEMBLY STOCK - 05/10/2023 1:15 PM CST Hematology / [...] therapy lifelong History of non-ST segment elevated [place]: Patient is on aspirin, Plavix, Eliquis Leukocytosis [...] 05/10/2023, 1:15 PM Hematology Oncology Nurse Practitioner [facility] Collaborating Physician: Dr. Gómez Patel GE GANG WEIGHER documented in this encounter Plan of Treatment [...] state documented in this encounter Care Teams Residential Sales Associate Relationship Specialty Start Date End Date Keven Mckenzie MD [address] [place] [address] PCP - General Family Practice 12/27/17 documented as of this encounter
--- OUTSIDE RECORDS SUMMARY | 2024-04-12 17:10 | XMS_ITS | Encounter Summary ---
Author Organization [facility] Address [address] [place] [address] Care Team Providers Care Hand Inserter Operator Name Role Phone Keven Mckenzie MD Primary Care Provider [phone] Reason for Visit * Reason Comments Follow Up Results Encounter Details Date Type Department Care Team (Late st Contact Info) Description 07/11/2018 9:30 AM CDT Office Visit [facility] Oncology and Hematology [facility] [address] [place] [address] [address] [place] [address] Gómez Patel MD [address] [facility] [address] [place] [address] Leukemoid reaction (Primary Dx); Leukocytosis, [...] She did[place] until her recent admission to [facility] on October 13 when she came into the hospital with right-sided weakness and probable diagnosis of TIA. 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 [address] PCP - General Family Practice 12/27/17 documented as of this encounter
== END 2024-04-05 21:30 | disposition home or self-care (01) ==
PROVIDERS: Emergency Provider Emergency Medicine; PCP Physician Assistant Medical
DX: D27.0 Benign neoplasm of right ovary (principal); D25.9 Leiomyoma of uterus, unspecified; I25.2 Old myocardial infarction; F17.210 Nicotine dependence, cigarettes, uncomplicated; Z86.73 Personal history of transient ischemic attack (TIA), and cerebral infarction without residual deficits; Z79.899 Other long term (current) drug therapy; Z79.82 Long term (current) use of aspirin; Z79.02 Long term (current) use of antithrombotics/antiplatelets; Z79.01 Long term (current) use of anticoagulants
CPT/HCPCS: 36415; 74177; 80053; 81001; 81025; 83690; 85025; 87086; 96361; 96374; 96375; 99284; J1171; J1885; J7030; Q9967

== ENCOUNTER 2024-04-24 13:29 | Outpatient (CLI) | payer BC, SELFPAY ==
--- NOTE | ~2024-04-24 | US_ITS ---
EXAMINATION: US pelvic complete w TV DATE: 04/24/2024 14:06 INDICATION: Neoplasm of unspecified behavior of other genitourinary organs. TECHNIQUE: Multiple transabdominal and transvaginal sonographic images of the pelvis were obtained. COMPARISON: CT abdomen pelvis 04/05/2024, 12/01/20 FINDINGS: TRANSABDOMINAL ULTRASOUND: The uterus measures 10.6 x 2.1 x 5.5 cm. There is no free fluid in the pelvis. TRANSVAGINAL ULTRASOUND: The endometrial complex measures 9 mm in thickness. There is a 5.1 cm intramural fibroid. In the righ t adnexa, there is an 8.3 cm mass of mixed echogenicity including a hyperechoic shadowing component t hat demonstrated fat by CT, consistent with a dermoid. In the left adnexa, there is a 7.0 cm hypoecho ic mass. IMPRESSION: 1. 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 2. 7.0 cm left adnexal mass, probably a pedunculated fibroid. 3. 5.1 cm uterine fibroid. Reviewed, dictated and finalized at location B. ARY COOK
== END 2024-04-24 13:30 | disposition home or self-care (01) ==
PROVIDERS: PCP Family Medicine; Visit Provider Obstetrics & Gynecology
DX: D27.0 Benign neoplasm of right ovary (principal); R19.09 Other intra-abdominal and pelvic swelling, mass and lump; D25.9 Leiomyoma of uterus, unspecified
CPT/HCPCS: 76830; 76856

== ENCOUNTER 2024-04-25 07:24 | Outpatient (CLI) | payer BC, SELFPAY ==
[2024-04-25 09:05] LABS: Beta HCG Quantitative < 2.39 mIU/ML
[2024-04-25 09:19] LABS: Carcinoembryonic Antigen 11.8 ng/mL (0.0-3.0)
[2024-04-26 01:23] LABS: CA-125 15 U/mL (<35)
--- OUTSIDE RECORDS SUMMARY | 2024-04-27 15:34 | XMS_ITS | Clinical Summary ---
Author Organization [facility] Address [address] [place] [address] Care Team Providers Care Manager Medicare Marketing Name Role Phone Keven Mckenzie MD Primary Care Provider [phone] Allergies Active Allergy Reactions Criticality Noted Date Comments Lamotrigine Hives High 02/05/2014 Medications clopidogrel (PLAVIX) 75 mg Tablet clopidogrel 75 mg tablet Take 1 tablet every day by oral route. Active aspirin (ASPIR-81 ORAL) Aspir-81 Acti ve apixaban (ELIQUIS) 5 mg tablet Eliquis 5 [...] Lupus anticoagulant with hypercoagulable state 0 12/27/2017 Encounters Date Type Department Care Team Description 04/26/2024 Telephone [facility] Gynecologic Oncology Mck[place] [address] [place] [address] Diana Jay DO Appointment Notification 04/26/2024 Telephone [facility] Gynecologic Oncology [place] [address] [place] [address] Estella Chapin, RMA Referral 04/26/2024 Abstract [facility] Gynecologic Oncology [place] [address] [place] [address] Estella Chapin RMA 04/25/2024 External Device Data STL ABSTRACTION Provider, Abstract from Last 3 Months Family History Medical History Relation Name Comments [...] = 0.6 oz pur e alcohol) socially Comments No Sex and Gender Information Value Date Recorded Sex Assigned at Not on file Legal Sex Female 8:51 AM CDT Gender Identity Not on file Sexual Orientation Not on file Last Filed Vital Signs Vital Sign Reading Time Taken Comments Blood Pressure 111/73 05/10/2023 1:13 PM VARNISH FILTERER Pulse 109 05/10/2023 1:13 PM VARNISH FILTERER Temperature 37.1 ??C (98.8 ??F) 02/17/2023 2:50 PM CS T Respiratory Rate 16 05/10/2023 1:13 PM VARNISH FILTERER Oxygen Saturation 95% 05/10/2023 1:13 PM VARNISH FILTERER Inhaled Oxygen Concentration - - Weight 136.4 kg (300 lb 9.6 oz) 05/10/2023 1:13 PM VARNISH FILTERER Height 175.3 cm (5' 9 ) 02/17/2023 2:50 PM VARNISH FILTERER Body Mass Index 44.39 02/17/2023 2:50 PM VARNISH FILTERER Plan of Treatment Upcoming Encounters Date Type Department Care Team (Late st Contact Info) Description 05/09/2024 9:00 AM VARNISH FILTERER Office Visit [facility] Gynecologic Oncology [place] [address] [facility] [address] [place] [address] Diana Jay DO [address] [facility] [address] [place] [address] Health Maintenance Due Date Last Done Comments Pre-Diabetes and Diabetes Screening 1987 DTAP/TDAP/TD VACCINES (1 - Tdap) 2006 HEPATITIS B VACCINES (1 of 3 - 19+ 3-dose series) 2006 CERVICAL CANCER SCREENING 2017 07/07/2010 INFLUENZA VACCINE (#1) 2023 Preventative Visit- Commercial 04/05/2024 HPV VACCINES Aged Out No longer eligi ble based on patient's age to complete this topic Insurance Care Teams Manager Medicare Marketing Relationship Specialty Start Date End Date Keven Mckenzie MD [address] [place] [address] PCP - General Family Practice 12/27/17
[2024-04-28 13:03] LABS: Alpha Fetoprotein Tumor Marker 2.7 ng/mL
== END 2024-04-25 07:25 | disposition home or self-care (01) ==
LOC: ANHLAB 07:25
PROVIDERS: PCP Family Medicine; Visit Provider Obstetrics & Gynecology
DX: D49.59 Neoplasm of unspecified behavior of other genitourinary organ (principal)
CPT/HCPCS: 36415; 82105; 82378; 84702; 86304

== ENCOUNTER 2024-11-06 13:25 | Emergency (ER) | payer BC, SELFPAY ==
[2024-11-06 13:36] VITALS: BP 139/87; PULSE 106; RESP 17; TEMP 36.4; O2SAT 99
--- OUTSIDE RECORDS SUMMARY | 2024-11-06 13:36 | XMS_ITS | Clinical Summary ---
Author Organization [facility] Address [address] [place] [address] Care Team Providers Care Drywall Contractor Name Role Phone Keven Mckenzie MD Primary Care Provider [phone] Allergies Active Allergy Reactions Criticality Noted Date [...] Take 100 mg by mouth daily. Active acetaminophen (TYLENOL) 325 mg tablet Take 2 Tablets (650 mg) by mouth every 6 hours as needed for Other (See Comment) (See admin instructions). 60 Tablet 05/22/2024 11:23 AM NUCLEAR WEAPONS CUSTODIAN 5 Active ibuprofen (MOTRIN) 400 mg tablet Take 1 Tablet (400 mg) by mouth every 6 hours as needed for Pain (For pain secondary to inflammation). 60 Tablet 05/22/2024 11:23 AM NUCLEAR WEAPONS CUSTODIAN 5 Active Active Problems Problem Noted Date Diagnosed Date Thrombocytosis 07/11/2018 Leukemoid reaction 12/27/2017 Lupus anticoagulant with hypercoagulable state 0 12/27/2017 Encounters Date Type Department Care Team Description 10/20/2024 Telephone [facility] Gynecologic Oncology [place] [address] [place] [address] Diana Jay, DO Appointment Correction 10/18/2024 External Device Data STL ABSTRACTION Provider, Abstract 10/17/2024 External Device Data STL ABSTRACTION Provider, Abstract 09/26/2024 External Device Data STL ABSTRACTION Provider, Abstract 09/19/2024 External Device Data STL ABSTRACTION Provider, Abstract 09/15/2024 Telephone [facility] Gynecologic Oncology [place] [address] [place] [address] Diana Jay, Appointment Correction 08/29/2024 Telephone [facility] Cancer and Hematology [address] [place] [address] Daisha Catalan, FANNY Nurse Navigation (Young Adult Cancer [facility]) 08/24/2024 External Device Data STL ABSTRACTION Provider, Abstract 08/22/2024 External Device Data STL ABSTRACTION Provider, Abstract [...] uit: Not Asked; Counseling Given: Not Answered Comments:2/10- 4 cigarettes a day Alcohol Use Standard Drinks/Week Comments Yes 0 (1 standard drink = 0.6 oz pur e alcohol) socially Comments No Sex and Gender Information Value Date Recorded Sex Assigned at Not on file Legal Sex Female 8:51 AM CDT Gender Identity Not on file Sexual Orientation Not on file Last Filed Vital Signs Vital Sign Reading Time Taken Comments Blood Pressure 122/78 06/06/2024 2:14 PM NUCLEAR WEAPONS CUSTODIAN Pulse 85 06/06/2024 2:14 PM NUCLEAR WEAPONS CUSTODIAN Temperature 36.7 C (98.1 F) 06/06/2024 2:14 PM NUCLEAR WEAPONS CUSTODIAN Respiratory Rate 20 05/22/2024 12:13 PM NUCLEAR WEAPONS CUSTODIAN Oxygen Saturation 91% 06/06/2024 2:14 PM NUCLEAR WEAPONS CUSTODIAN Inhaled Oxygen Concentration - - Weight 131.5 kg (290 lb) 06/06/2024 2:14 PM NUCLEAR WEAPONS CUSTODIAN Height 175.3 cm (5' 9) 06/06/2024 2:14 PM NUCLEAR WEAPONS CUSTODIAN Body Mass Index 42.83 06/06/2024 2:14 PM NUCLEAR WEAPONS CUSTODIAN Plan of Treatment Upcoming Encounters Date Type Department Care Team (Late st Contact Info) Description 11/14/2024 1:15 PM CDT Office Visit [facility] Gynecologic Oncology [place] [address] [facility] [address] [place] [address] Diana Jay, [address] [place] [address] Health Maintenance Due Date Last Done Comments Pre-Diabetes and Diabetes Screening 1987 HPV VACCINES (1 - 3-dose series) 2002 DTAP/TDAP/TD VACCINES (1 - Tdap) 2006 HEPATITIS B VACCINES (1 of 3 - 19+ 3-dose series) 12/2005 INFLUENZA VACCINE (#1) 2024 Insurance [facility] [employer] CHOICE RX [facility] [employer] RX AZUL PLANS (INTERNAL) [facility] Internal Plans Advance Directives For more information, please contact: [phone] * Full Code (Latest Code Status on File) Date Activated Date Inactivated Comments 05/22/2024 9:51 AM 05/22/2024 3:01 PM * Full Code Date Activated Date Inactivated Comments 05/22/2024 5:39 AM 05/22/2024 9:51 AM Care Teams Drywall Contractor Relationship Specialty Start Date End Date Keven Mckenzie MD [address] [place] [address] PCP - General Family Practice 12/27/17 Dr. Gene Archer Public Service Administrator 05/15/24
--- NOTE | 2024-11-06 15:52 | PC.NURSE ---
Pt to intake desk stating I'm going to leave. Pt ambulated to exit using steady gait NAD noted.
--- OUTSIDE RECORDS SUMMARY | 2024-11-06 15:56 | XMS_ITS | Clinical Summary ---
Author Organization [facility] Address [address] [place] [address] Care Team Providers Care Principal System Software Engineer Name Role Phone Keven Mckenzie MD Primary Care Provider [phone] Allergies Active Allergy Reactions Criticality Noted Date [...] admin instructions). 60 Tablet 05/22/2024 11:23 AM SERVICE DELIVERY DIRECTOR 5 Active ibuprofen (MOTRIN) 400 mg tablet Take 1 Tablet (400 mg) by mouth every 6 hours as needed for Pain (For pain secondary to inflammation). 60 Tablet 05/22/2024 11:23 AM SERVICE DELIVERY DIRECTOR 5 Active Active Problems Problem Noted Date Diagnosed Date Thrombocytosis 07/11/2018 Leukemoid reaction 12/27/2017 Lupus anticoagulant with hypercoagulable state 0 12/27/2017 Encounters Date Type Department Care Team Description 10/20/[address] [facility] Gynecologic Oncology [place] [address] [place] [address] Diana Jay, DO Appointment Correction 10/18/2024 External Device Data STL ABSTRACTION Provider, Abstract 10/17/2024 External Device Data STL ABSTRACTION Provider, Abstract 09/26/2024 External Device Data STL ABSTRACTION Provider, Abstract 09/19/2024 External Device Data STL ABSTRACTION Provider, Abstract 09/15/[address] [facility] Gynecologic Oncology [place] [address] [facility] [address] [place] [address] Diana Jay, Appointment Correction 08/29/2024 Telephone [facility] Cancer and Hematology [address] [place] [address] Daisha Catalan, FANNY Nurse Navigation (Young Adult [...] Comments Blood Pressure 122/78 06/06/2024 2:14 PM SERVICE DELIVERY DIRECTOR Pulse 85 06/06/2024 2:14 PM SERVICE DELIVERY DIRECTOR Temperature 36.7 C (98.1 F) 06/06/2024 2:14 PM SERVICE DELIVERY DIRECTOR Respiratory Rate 20 05/22/2024 12:13 PM SERVICE DELIVERY DIRECTOR Oxygen Saturation 91% 06/06/2024 2:14 PM SERVICE DELIVERY DIRECTOR Inhaled Oxygen Concentration - - Weight 131.5 kg (290 lb) 06/06/2024 2:14 PM SERVICE DELIVERY DIRECTOR Height 175.3 cm (5' 9) 06/06/2024 2:14 PM SERVICE DELIVERY DIRECTOR Body Mass Index 42.83 06/06/2024 2:14 PM SERVICE DELIVERY DIRECTOR Plan of Treatment Upcoming Encounters Date Type Department Care Team (Late st Contact Info) Description 11/14/2024 1:15 PM CDT Office Visit [facility] Gynecologic Oncology [place] [address] [facility] [address] [place] [address] Diana Jay, [address] [facility] [address] [place] [address] Health Maintenance Due Date Last Done Comments Pre-Diabetes and Diabetes Screening 1987 HPV VACCINES (1 - 3-dose series) 2002 DTAP/TDAP/TD VACCINES (1 - Tdap) 2006 HEPATITIS B VACCINES (1 of 3 - 19+ 3-dose series) 12/2005 INFLUENZA VACCINE (#1) 2024 Insurance [facility] [employer] CHOICE RX [facility] [employer] RX AZUL PLANS (INTERNAL) [facility] Internal Plans Advance Directives For more information, please contact: [phone] * Full Code (Latest Code Status on File) Date Activated Date Inactivated Comments 05/22/2024 9:51 AM 05/22/2024 3:01 PM * Full Code Date Activated Date Inactivated Comments 05/22/2024 5:39 AM 05/22/2024 9:51 AM Care Teams Principal System Software Engineer Relationship Specialty Start Date End Date Keven Mckenzie MD [address] [place] [address] PCP - General Family Practice 12/27/17 Dr. Gene Archer Chief Credit Officer 05/15/24
== END 2024-11-06 15:52 | disposition left against medical advice (07) ==
LOC: ANHED 15:54
PROVIDERS: PCP Family Medicine
DX: L02.414 Cutaneous abscess of left upper limb (principal)
CPT/HCPCS: 99199